=== PATIENT | female | born 1980 | race Caucasian/White ===

== ENCOUNTER 2023-12-08 19:49 | Emergency (ER) | payer BC, SELFPAY ==
[2023-12-08 19:54] VITALS: BP 138/98; PULSE 94; TEMP 36.6; O2SAT 99; BMI 22.6
--- NOTE | 2023-12-08 19:58 | PC.NURSE ---
Pt has swelling to right lower cheek area, denies known carry or broken tooth. Pt has no relief using ice or heat at home for swelling. Airway intact. Pt able to tolerate PO food and drink.
--- NOTE | 2023-12-08 20:03 | CT_ITS ---
The [address] [address] Patient Name: CHARLES REES MRN: [id number] date: 1980 Sex: F Assigned Patient Location: ER Current Patient Location: ED.MAIN Accession/Order Number: [id number] Exam Date: 12/08/2023 20:16 Report Date: 12/08/2023 21:01 At the request of: DAVID BLACK Procedure: CT facial bones w con EXAM: CT facial bones w con HISTORY: right facial abscess COMPARISON: None. TECHNIQUE: IV contrast enhanced CT imaging of the face. This CT exam was performed using one or more of the following dose reduction techniques: Automated exposure control, adjustment of the mA and/or KV according to patient size, or use of iterative reconstruction technique. Unless otherwise stated, incidental findings do not require dedicated follow-up imaging. FINDINGS: The bones of the face are intact without fracture or malalignment. The temporomandibular joints are appropriately located bilaterally. The paranasal sinuses and mastoid air cells are clear. There is prominent right premandibular soft tissue swelling. There is a rim enhancing subcutaneous abscess within the right perimandibular subcutaneous soft tissues that measures 10 x 9 mm. There is prominent surrounding inflammatory stranding. The globes are intact. The parotid and some mandibular glands are symmetric. CT/CT facial bones w con IMPRESSION: 1. 10 mm right perimandibular and cutaneous soft tissue abscess with surrounding inflammatory change. Electronically authenticated by: RHONA HDEZ Date: 12/08/2023 21:01
--- NOTE | 2023-12-08 20:05 | ED.GENADUL1 ---
Documented by User: ANALI Pedraza 12/08/23 20:53 HPI HPI - General Adult General Chief complaint: Skin/Abscess/Foreign Body Stated complaint: LUMP Time Seen by Provider: 12/08/23 19:51 Source: patient Mode of arrival: walk-in Limitations: no limitations History of Present Illness HPI narrative: Patient is a 43-year-old female who presents to the emergency department for a 5-day history of swelling to the right mandible. Patient states she had a hysterectomy 1 month ago and has been on Augmentin for the last several weeks although her pharmacy list shows that she was prescribed 10 days of Augmentin on 11/10/2023 so she should have finished this medication by now. She was seen yesterday at urgent care for the swelling and was referred to ENT. She states she has an appointment with ENT Thursday. She denies fevers, vomiting, drainage from the area. She has been applying warm compresses. Urgent care prescribed doxycycline yesterday although she states she has not filled that medication because she is still taking the Augmentin. No injury to the area. She denies dental pain Related Data Home Medications ?Medication ?Instructions ?Recorded ?Confirmed amoxicillin 875 mg-potassium 1 tab PO Q12H 12/08/23 12/08/23 clavulanate 125 mg tablet Previous Rx's ?Medication ?Instructions ?Recorded cephalexin 500 mg capsule 500 mg PO QID 10 days #40 caps 12/08/23 sulfamethoxazole 800 1 tab PO BID 10 days #20 tabs 12/08/23 mg-trimethoprim 160 mg tablet (Bactrim DS) Allergies Allergy/AdvReac Type Severity Reaction Status Date / Time acetaminophen [From Vicodin] Allergy itch Verified 12/08/23 20:00 hydrocodone [From Vicodin] Allergy itch Verified 12/08/23 20:00 nalbuphine [From Nubain] AdvReac Vomiting Verified 12/08/23 20:00 Opioid HPI Opioid Management Most Recent Opioid Data: No Data to Display Review of Systems ROS Constitutional Denies: fever or chills Ears, nose, mouth, and throat Denies: throat pain or nasal congestion Cardiovascular Denies: chest pain Respiratory Denies: shortness of breath or cough Gastrointestinal Denies: nausea or vomiting Musculoskeletal Denies: back pain Integumentary/Breast Denies: rash Neurological Denies: headache, numbness in extremities or weakness in extremities Hematologic/Lymphatic Denies: easy bruising or easy bleeding Exam Narrative Exam Narrative: Gen.: Awake, alert, in no distress Head: Normocephalic, atraumatic ENT: Moist mucous membranes, swollen indurated erythematous area to the right mandible/cheek; no redness or swelling under the tongue. Clear speech and airway open and patent, no dental caries noted. No visible abscess of the gums Respiratory: No respiratory distress Extremities: Moves extremities equally Psych: Normal mood and affect Neuro: No focal neuro deficit Skin: Warm, dry, intact Constitutional Vital Signs, click to edit/add: Last Vital Signs Temp 98 F 12/08/23 19:54 Pulse 94 H 12/08/23 19:54 Resp 16 12/08/23 19:54 BP 138/98 H 12/08/23 19:54 Pulse Ox 99 12/08/23 19:54 O2 Del Method Room Air 12/08/23 19:54 Course Vital Signs Vital signs: Vital Signs Temperature 98 F 12/08/23 19:54 Pulse Rate 94 H 12/08/23 19:54 Respiratory Rate 16 12/08/23 19:54 Blood Pressure 138/98 H 12/08/23 19:54 Pulse Oximetry 99 12/08/23 19:54 Oxygen Delivery Method Room Air 12/08/23 19:54 Temperature 98 F 12/08/23 19:54 Pulse Rate 94 H 12/08/23 19:54 Respiratory Rate 16 12/08/23 19:54 Blood Pressure 138/98 H 12/08/23 19:54 Pulse Oximetry 99 12/08/23 19:54 Oxygen Delivery Method Room Air 12/08/23 19:54 Medical Decision Making MDM Narrative Medical decision making narrative: 2051: Patient sent for CT of the soft tissue of the facial bones with IV contrast, CBC shows mild leukocytosis. Case turned over to attending physician at this time for disposition SHARED APC VISIT, PHYSICIAN ATTESTATION: [id number] I performed a substantive part of the MDM during the patient?s E/M visit. I personally evaluated and examined the patient. I personally made or approved the documented management plan and acknowledge its risk of complications. Medical Records Medical records reviewed: Yes I reviewed the patient's medical records Lab Data Lab results reviewed: Yes I reviewed the patient's lab results Labs: Lab Results 12/08/23 Range/Units 20:13 WBC 13.7 H (4.0-11.0) 10^3/uL RBC 4.65 (4.20-5.40) 10^6/uL Hgb 13.8 (12.0-16.0) g/dL Hct 40.7 (36.0-48.0) % MCV 87.5 (81.0-99.0) fL MCH 29.7 (26.7-34.0) pg MCHC 33.9 (29.9-35.2) g/dL RDW 13.9 (11.0-15.0) % Plt Count 261 (150-450) 10^3/uL MPV 10.8 (9.5-13.5) fL Seg Neuts % (Manual) 64.0 (43.0-75.0) Lymphocytes % (Manual) 7.0 L (20.5-60.0) % Atypical Lymphs % (Man) 19.0 % Monocytes % (Manual) 7.0 (1.7-12.0) % Eosinophils % (Manual) 3.0 (0.9-7.0) % Basophils % (Manual) 0.0 L (0.2-2.0) % Neutrophils # (Manual) 8.76 H (1.4-6.5) 10^3/uL Lymphocytes # (Manual) 0.95 L (1.20-3.80) 10^3/uL Abs Atypical Lymphs Man 2.60 Monocytes # (Manual) 0.95 H (0.30-0.80) 10^3/uL Eosinophils # (Manual) 0.41 (0.00-0.70) 10^3/uL Basophils # (Manual) 0.00 (0.00-0.10) 10^3/uL Toxic Vacuolation 2+ Imaging Data CT facial bones: Radiologist's impression: ITS Impressions Facial Bones CT 12/08/23 20:03 IMPRESSION: 1. 10 mm right perimandibular and cutaneous soft tissue abscess with surrounding inflammatory change. Electronically authenticated by: RHONA HDEZ Date: 12/08/2023 21:01 Discharge Plan Discharge Stand Alone Forms: Portal Instructions Chief Complaint: Skin/Abscess/Foreign Body Clinical Impression: Abscess of face Patient Disposition: Home, Self-Care Time of Disposition Decision: 21:14 Condition: Good Mode of Transportation: Private Vehicle Prescriptions / Home Meds: New sulfamethoxazole-trimethoprim [Bactrim DS] 800-160 mg tablet 1 tab PO BID 10 Days Qty: 20 0RF cephalexin 500 mg capsule 500 mg PO QID 10 Days Qty: 40 0RF No Action amoxicillin-pot clavulanate 875-125 mg tablet 1 tab PO Q12H Print Language: Martiniquais Instructions: Abscess (ED) Additional Instructions: See the ENT specialist at your appointment on Thursday, December 13. Use warm compresses for 15 minutes each time 4 times a day. Referrals: HAFSA WINSTON [Primary Care Provider] - 1 week Documented by User: Sebastien Singer MD 12/08/23 21:16 HPI HPI - General Adult General Chief complaint: Skin/Abscess/Foreign Body Stated complaint: LUMP Time Seen by Provider: 12/08/23 19:51 Related Data Home Medications ?Medication ?Instructions ?Recorded ?Confirmed amoxicillin 875 mg-potassium 1 tab PO Q12H 12/08/23 12/08/23 clavulanate 125 mg tablet Previous Rx's ?Medication ?Instructions ?Recorded cephalexin 500 mg capsule 500 mg PO QID 10 days #40 caps 12/08/23 sulfamethoxazole 800 1 tab PO BID 10 days #20 tabs 12/08/23 mg-trimethoprim 160 mg tablet (Bactrim DS) Allergies Allergy/AdvReac Type Severity Reaction Status Date / Time acetaminophen [From Vicodin] Allergy itch Verified 12/08/23 20:00 hydrocodone [From Vicodin] Allergy itch Verified 12/08/23 20:00 nalbuphine [From Nubain] AdvReac Vomiting Verified 12/08/23 20:00 Opioid HPI Opioid Management Most Recent Opioid Data: No Data to Display Exam Constitutional Vital Signs, click to edit/add: Last Vital Signs Temp 98 F 12/08/23 19:54 Pulse 94 H 12/08/23 19:54 Resp 16 12/08/23 19:54 BP 138/98 H 12/08/23 19:54 Pulse Ox 99 12/08/23 19:54 O2 Del Method Room Air 12/08/23 19:54 Course Vital Signs Vital signs: Vital Signs Temperature 98 F 12/08/23 19:54 Pulse Rate 94 H 12/08/23 19:54 Respiratory Rate 16 12/08/23 19:54 Blood Pressure 138/98 H 12/08/23 19:54 Pulse Oximetry 99 12/08/23 19:54 Oxygen Delivery Method Room Air 12/08/23 19:54 Temperature 98 F 12/08/23 19:54 Pulse Rate 94 H 12/08/23 19:54 Respiratory Rate 16 12/08/23 19:54 Blood Pressure 138/98 H 12/08/23 19:54 Pulse Oximetry 99 12/08/23 19:54 Oxygen Delivery Method Room Air 12/08/23 19:54 Medical Decision Making MDM Narrative Medical decision making narrative: 2051: Patient sent for CT of the soft tissue of the facial bones with IV contrast, CBC shows mild leukocytosis. Case turned over to attending physician at this time for disposition SHARED APC VISIT, PHYSICIAN ATTESTATION: [id number] I performed a substantive part of the MDM during the patient?s E/M visit. I personally evaluated and examined the patient. I personally made or approved the documented management plan and acknowledge its risk of complications. JK CT findings are discussed with the patient. She was given IV vancomycin. She has an appointment with ENT physician in 6 days that she will keep. She is going to be started on Bactrim and Keflex as well and was recommended warm compresses. Treatment diagnosis and follow-up were discussed with the patient. Differential Diagnosis Differential Diagnosis: Abscess, cellulitis Lab Data Lab results reviewed: Yes I reviewed the patient's lab results Labs: Lab Results 12/08/23 Range/Units 20:13 WBC 13.7 H (4.0-11.0) 10^3/uL RBC 4.65 (4.20-5.40) 10^6/uL Hgb 13.8 (12.0-16.0) g/dL Hct 40.7 (36.0-48.0) % MCV 87.5 (81.0-99.0) fL MCH 29.7 (26.7-34.0) pg MCHC 33.9 (29.9-35.2) g/dL RDW 13.9 (11.0-15.0) % Plt Count 261 (150-450) 10^3/uL MPV 10.8 (9.5-13.5) fL Seg Neuts % (Manual) 64.0 (43.0-75.0) Lymphocytes % (Manual) 7.0 L (20.5-60.0) % Atypical Lymphs % (Man) 19.0 % Monocytes % (Manual) 7.0 (1.7-12.0) % Eosinophils % (Manual) 3.0 (0.9-7.0) % Basophils % (Manual) 0.0 L (0.2-2.0) % Neutrophils # (Manual) 8.76 H (1.4-6.5) 10^3/uL Lymphocytes # (Manual) 0.95 L (1.20-3.80) 10^3/uL Abs Atypical Lymphs Man 2.60 Monocytes # (Manual) 0.95 H (0.30-0.80) 10^3/uL Eosinophils # (Manual) 0.41 (0.00-0.70) 10^3/uL Basophils # (Manual) 0.00 (0.00-0.10) 10^3/uL Toxic Vacuolation 2+ Imaging Data CT facial bones: Radiologist's impression: ITS Impressions Facial Bones CT 12/08/23 20:03
[2023-12-08 20:19] LABS: Hematocrit 40.7 % (36.0-48.0); Hemoglobin 13.8 g/dL (12.0-16.0); Mean Corpuscular HGB Conc 33.9 g/dL (29.9-35.2); Mean Corpuscular Hemoglobin 29.7 pg (26.7-34.0); Mean Corpuscular Volume 87.5 fL (81.0-99.0); Mean Platelet Volume 10.8 fL (9.5-13.5); Platelet Count 261 10^3/uL (150-450); Red Blood Count 4.65 10^6/uL (4.20-5.40); Red Cell Distribution Width 13.9 % (11.0-15.0); White Blood Count 13.7 10^3/uL (4.0-11.0)
[2023-12-08 20:36] LABS: Eosinophils Absolute Manual 0.41 10^3/uL (0.00-0.70); Lymphocytes Absolute Manual 0.95 10^3/uL (1.20-3.80); Monocytes Absolute Manual 0.95 10^3/uL (0.30-0.80); Segmented Neut Absolute Manual 8.76 10^3/uL (1.4-6.5); Toxic Vacuolation 2+
[2023-12-08 21:47] VITALS: BP 132/86; PULSE 82; O2SAT 97
== END 2023-12-08 21:47 | disposition home or self-care (01) ==
PROVIDERS: Physician Assistant; Emergency Provider Emergency Medicine; PCP Nurse Practitioner Family
DX: L02.01 Cutaneous abscess of face (principal); Z90.710 Acquired absence of both cervix and uterus
CPT/HCPCS: 36415; 70487; 85007; 85027; 99285; J3370; Q9967

== ENCOUNTER 2025-02-06 13:27 | Outpatient (OUT) | payer OTHER, SELFPAY ==
--- OUTSIDE RECORDS SUMMARY | 2022-11-27 05:12 | XMS_ITS | Continuity of Care Document ---
Author Organization [facility] Address [address] [place] [address] Phone Care Team Providers Care Customer Consulting Manager Name Role Phone August Gonzáles Unavailable Unavailable Allergies, Adverse Reactions, Alerts Substance Reaction Status Criticality hydrocodone Active No Information NALBUPHINE HCL Active No Informatio n Medications Medication Instructions Dosage Effective Dates (start - stop) Status Comments hydrochlorothiazide 12.5 mg tablet take 1 tablet by oral route every day 12.5 MG - Active ondansetron HCl 4 mg tablet take 1 tablet by oral route 4 times every day 4 MG - Active clonidine HCl 0.1 mg tablet take 1 tablet by oral route 2 times every day 0.1 MG - Active buspirone 10 mg tablet take 1 tablet by oral route 2 times every day 10 MG - Active Valtrex 500 mg tablet take 1 tablet by oral route every day 500 MG - Active Procedures Procedure Date OFFICE/OUTPATIENT VISIT, EST OFFICE/OUTPATIENT VISIT, EST URINALYSIS NONAUTO W/O SCOPE OFFICE/OUTPATIENT VISIT, EST URINALYSIS NONAUTO W/O SCOPE OFFICE/OUTPATIENT VISIT, EST URINE TEST OFFICE/OUTPATIENT VISIT, EST URINALYSIS NONAUTO W/O SCOPE Acute Detox Library Acquisitions Technician Acute Detox Library Acquisitions Technician Acute Detox Library Acquisitions Technician Acute Detox Library Acquisitions Technician Acute Detox Library Acquisitions Technician COVID-19 Antigen Test DRUG TEST PRSMV DIR OPT OBS URINE TEST Acute Detox Library Acquisitions Technician COVID-19 Antigen Test OFFICE/OUTPATIENT VISIT, EST ROUTINE VENIPUNCTURE OFFICE/OUTPATIENT VISIT, EST OFFICE/OUTPATIENT VISIT, EST OFFICE/OUTPATIENT VISIT, EST Office Visit/[facility] OFFICE/OUTPATIENT VISIT, EST OFFICE/OUTPATIENT VISIT, EST OFFICE/OUTPATIENT VISIT, EST OFFICE/OUTPATIENT VISIT, EST OFFICE/OUTPATIENT VISIT, EST OFFICE/OUTPATIENT VISIT, EST Alcohol and/or drug services- Acute Deto x Alcohol and/or drug services- Acute Deto x Alcohol and/or drug services- Acute Deto x DRUG TEST PRSMV DIR OPT OBS URINE TEST OFFICE/OUTPATIENT VISIT, EST STREP A ASSAY W/OPTIC CHIROPRACTIC MANIPULATION OFFICE/OUTPATIENT VISIT, EST CHIROPRACTIC MANIPULATION CHIROPRACTIC MANIPULATION OFFICE/OUTPATIENT VISIT, EST Panoramic Film Comp Oral Eval New/estab Patient 2018 Oral Hygiene Instruction PREV VISIT, EST, AGE 18-39 Detox Discharge Alcohol and/or drug services- Acute Deto x Alcohol and/or drug services- Acute Deto x DRUG TEST PRSMV DIR OPT OBS Advance Directives Directive Yes / No Effective Date File Name No Information Encounters Encounter Description Practice Location Reason(s) For Visit Diagnoses Date Provider Providers Copied on Encounter [facility], [address] [place] [address], [id number] , [place] tel: [phone] [facility] No Information 3 Evan Gomez. [address], [place], [id number] , [place]. tel: [phone] OFFICE/OUTPA TIENT VISIT, [facility], [address], [place], [id number] , [place] tel: [phone] [facility] f/u HTN, med refill (chief complaint)r elapse (chief complaint) Essential (primary) hypertensionOpiate abuse, episodicBody mass index [BMI] 23.0-23.9, adultTobacco Use Disorder, ModerateBipolar affective disorder, current episode mixed, current episode severity unspecified 2 Kastor RE[employer]OR [employer] Alyssa. [address] [place], [address], [place]. tel: [phone] OFFICE/OUTPA TIENT VISIT, [facility], [address] [place] [address], [id number] , [place] tel: [phone] [facility] F/U Flank pain (chief complaint) Heart palpitationsBody mass index [BMI] 22.0-22.9, adultEssential (primary) hypertensionAnxietyA cute UTIFollow-up examKidney stone on right sideFlank pain 2 Kastor [employer] Alyssa. [address] [place], [address], [place]. tel: [phone] OFFICE/OUTPA TIENT VISIT, [facility], [address] [place] [address], [id number] , [place] tel: [phone] [facility] UTI/Flank Pain (chief complaint) Body mass index [BMI] 22.0-22.9, adultChest pressureHeart palpitationsLeft flank painAsymptomatic microscopic hematuria 2 Kastor [employer] Alyssa. [address] [place] [address], [address], [place]. tel:[phone] OFFICE/OUTPA TIENT VISIT, [facility], [address] [place] [address], [id number] , [place] tel:+ [phone] [facility] F/U BP (chief complaint)F /U UTI (chief complaint)F /U Anxiety (chief complaint)U TI (chief complaint) Left flank painAcute UTIBody mass index [BMI] 22.0-22.9, adult Fabrice- 2 Jacob Clayton. [address] [place] [address], [id number] , [place]. tel:[phone] [facility], [address] [place] [address], [id number] , [place] tel: [phone] [facility] Constantine Acute UTI 2 Mame ARDON-Ami Shah. [address] [place] [address], [address], [place]. tel: [phone] OFFICE/OUTPA TIENT VISIT, [facility], [address] [place] [address], [id number] , [place] tel: [phone] [facility] BP check (chief complaint)f lank/pelvic pain (chief complaint)c oncerns about anxiety (chief complaint)n una issues (chief complaint) Neck painEssential (primary) hypertensionAnxietyB frantz mass index [BMI] 22.0-22.9, adultAsymptomatic microscopic hematuria 2 Mame ARDON-Ami Shah. [address] [place] [address], [address], [place]. tel: [phone] [facility], [address] [place] [address], [id number] , [place] tel:+ [phone] [facility]ox Opioid dependence with withdrawalMood disorderEssential (primary) hypertensionTobacco Use Disorder, Moderate 2 Thad Ozuna. [address] [place] [address], [address], [place]. tel: [phone] [facility], [address], [place], [id number] , [place] tel: [phone] [facility] Opioid dependence with withdrawalMood disorderEssential (primary) hypertensionTobacco Use Disorder, Moderate May-0 5-202 2 Thad Laith. [address] [place], [address], [place]. tel: [phone] [facility], [address], [place], [id number] , [place] tel: [phone] [facility] Opioid dependence with withdrawalMood disorderEssential (primary) hypertensionTobacco Use Disorder, Moderate May-0 4-202 2 Thad Laith. [address] [place], [address], [place]. tel: [phone] [facility], [address] [place] [address], [id number] , [place] tel: [phone] [facility] Opioid dependence with withdrawalMood disorderEssential (primary) hypertensionTobacco Use Disorder, Moderate May-0 3-202 2 Thad Laith. [address] [place], [address], [place]. tel: [phone] [facility], [address], [place], [id number] , [place] tel: [phone] [facility] substance abuse (chief complaint) Opioid dependence with withdrawalMood disorderEssential (primary) hypertensionTobacco Use Disorder, Moderate May-0 2-202 2 Thad Laith. [address] [place], [address], [place]. tel: [phone] [facility], [address], [place], [id number] , [place] tel: [phone] [facility] Opioid dependence with withdrawalMood disorderEssential (primary) hypertensionTobacco Use Disorder, Moderate May-0 2-202 2 Thad Laith. [address] [place], [address], [place]. tel: [phone] [facility], [address], [place], [id number] , [place] tel: [phone] [facility] Opioid dependence with withdrawalEncounter For Screening For Covid-19Encounter for test, result negative 2 Thad Ozuna. [address] [place] [address], [address], [place]. tel: [phone] OFFICE/OUTPA TIENT VISIT, [facility], [address] [place] [address], [id number] , [place] tel: [phone] [facility] BP Check & review labs (chief complaint) Body mass index [BMI] 23.0-23.9, adultDyslipidemia with elevated low density lipoprotein (LDL) cholesterol and abnormally low high density lipoprotein cholesterolEssential (primary) hypertensionMigraine without status migrainosus, not intractable, unspecified migraine type 1 [employer]aco Sierra. [address] [place] [address], [id number] , [place]. tel: [phone] [facility], [address] [place] [address], [id number] , [place] tel: [phone] [facility] labs (chief complaint) Fatigue, unspecified type 1 [employer]. [address] [place] [address], [id number] , [place]. tel: [phone] OFFICE/OUTPA TIENT VISIT, [facility], [address] [place] [address], [id number] , [place] tel: [phone] [facility] Med Refill (chief complaint) Body mass index [BMI] 23.0-23.9, adultHead congestionEssential (primary) hypertensionDaily headacheAnnual physical examDizzinessChronic fatigueArthralgia of both handsPain in joints of left handBilateral hand swelling 1 [employer]. [address] [place] [address], [id number] , [place]. tel: [phone] OFFICE/OUTPA TIENT VISIT, [facility], [address] [place] [address], [id number] , [place] tel: [phone] [facility] BP/med refill (chief complaint) Elevated BP without diagnosis of hypertensionGenital herpes simplex, unspecified siteMigraine without status migrainosus, not intractable, unspecified migraine type 0 Gil Santos. [address], [place], [id number] , [place]. tel: [phone] OFFICE/OUTPA TIENT VISIT, [facility], [address], [place], [id number] , [place] tel: [phone] [facility] f/u meds and bp (chief complaint) Essential (primary) hypertensionAnxiety 0 [employer]. [address] [place] [address], [id number] , [place]. tel: [phone] OFFICE/OUTPA TIENT VISIT, [facility], [address] [place] [address], [id number] , [place] tel: [phone] [facility] f/u BP (chief complaint) Migraine without status migrainosus, not intractable, unspecified migraine typeEssential (primary) hypertensionRinging in right ear 0 [employer]. [address] [place] [address], [id number] , [place]. tel: [phone] OFFICE/OUTPA TIENT VISIT, [facility], [address] [place] [address], [id number] , [place] tel: [phone] [facility] ER follow up (chief complaint) Body mass index (BMI) 21.0-21.9, adultEssential (primary) hypertensionMigraine without status migrainosus, not intractable, unspecified migraine type 0 [employer]. [address] [place] [address], [id number] , [place]. tel: [phone] OFFICE/OUTPA TIENT VISIT, [facility], [address] [place] [address], [id number] , [place] tel: [phone] [facility] swollen hands (chief complaint) Body mass index (BMI) 21.0-21.9, adultEdema, unspecified type 9 [employer]. [address], [place], [id number] , [place]. tel: [phone] [facility], [address] [place] [address], [id number] , [place] tel: [phone] [facility] Diarrhea, unspecified typeEnlarged uterus 9 [employer]. [address] [place] [address], [id number] , [place]. tel: [phone] OFFICE/OUTPA TIENT VISIT, [facility], [address] [place] [address], [id number] , [place] tel: [phone] [facility] diarrhea (chief complaint)o ther (chief complaint) Diarrhea, unspecified type 9 [employer]. [address] [place] [address], [id number] , [place]. tel: [phone] OFFICE/OUTPA TIENT VISIT, [facility], [address] [place] [address], [id number] , [place] tel: [phone] [facility] armpit cysts (chief complaint) Body mass index (BMI) 21.0-21.9, adultAbscess 9 [employer]. [address] [place] [address], [id number] , [place]. tel: [phone] OFFICE/OUTPA TIENT VISIT, [facility], [address] [place] [address], [id number] , [place] tel: [phone] [facility] medication f/u (chief complaint) Body mass index (BMI) 20.0-20.9, adultCocaine dependence with withdrawalOpioid dependence, uncomplicatedBipolar affective disorder, current episode mixed, current episode severity unspecifiedNeck painFatigue, unspecified type 9 [employer]. [address], [place], [id number] , [place]. tel: [phone] [facility], [address], [place], [id number] , [place] tel: [phone] [facility] Opioid dependence with withdrawal 0 9 Pavlock DO Max. [address], [place], [id number] , [place]. tel: [phone] [facility], [address], [place], [id number] , [place] tel: [phone] [facility] fentanyl dependence (chief complaint) Opioid dependence with withdrawal Feb-0 9 Wan Howell. [address], [place], [id number] , [place]. tel: [phone] [facility], [address], [place], [id number] , [place] tel: [phone] [facility] Opioid dependence with withdrawal 0 9 Pavlock DO Max. [address], [place], [id number] , [place]. tel: [phone] [facility], [address], [place], [id number] , [place] tel: [phone] [facility] Opioid dependence with withdrawalEncounter for test, result negative 3 9 [facility]. [address], [place], [id number] , [place]. tel: [phone] OFFICE/OUTPA TIENT VISIT, EST [facility], [address], [place], [id number] , [place] tel: [phone] [facility] problem visit (chief complaint) Body mass index (BMI) 21.0-21.9, adultUpper respiratory tract infection, unspecified typeSore throat 9 [employer] Sierra. [address], [place], [id number] , [place]. tel: [phone] [facility], [address], [place], [id number] , [place] tel: [phone] [facility] thoracic spine (chief complaint)t horacic spine (chief complaint) Segmental and somatic dysfunction of thoracic regionPain in thoracic spineSegmental and somatic dysfunction of cervical region 9 Wan Howell. [address], [place], [id number] , [place]. tel: [phone] OFFICE/OUTPA TIENT VISIT, EST [facility], [address], [place], [id number] , [place] tel: [phone] [facility] possible hernia (chief complaint) Body mass index (BMI) 21.0-21.9, adultLeft inguinal hernia 9 [employer] Sierra. [address] [place] [address], [id number] , [place]. tel: [phone] [facility], [address], [place], [id number] , [place] tel: [phone] [facility] thoracic spine (chief complaint)t horacic spine (chief complaint) Segmental and somatic dysfunction of thoracic regionPain in thoracic spineSegmental and somatic dysfunction of cervical region 9 Wan Howell. [address] [place] [address], [id number] , [place]. tel: [phone] [facility], [address] [place] [address], [id number] , [place] tel: [phone] [facility] thoracic spine (chief complaint)t horacic spine (chief complaint) Segmental and somatic dysfunction of thoracic regionPain in thoracic spineSegmental and somatic dysfunction of cervical region 9 Wan Howell. [address] [place] [address], [id number] , [place]. tel: [phone] [facility], [address] [place] [address], [id number] , [place] tel: [phone] [facility] thoracic spine (chief complaint)t horacic spine (chief complaint) Segmental and somatic dysfunction of thoracic regionPain in thoracic spineSegmental and somatic dysfunction of cervical region 9 Wan Howell. [address], [place], [id number] , [place]. tel: [phone] OFFICE/OUTPA TIENT VISIT, EST [facility], [address], [place], [id number] , [place] tel: [phone] [facility] med (chief complaint)e stablish care (chief complaint) Encounter for general adult medical exam w/ abnormal findingBody mass index (BMI) 21.0-21.9, adultGenital herpes simplex, unspecified site 9 [employer]. [address] [place] [address], [id number] , [place]. tel: [phone] [facility], [address] [place] [address], [id number] , [place] tel: [phone] [facility] thoracic spine (chief complaint)t horacic spine (chief complaint) Segmental and somatic dysfunction of thoracic regionPain in thoracic spineSegmental and somatic dysfunction of cervical region 9 Wan Howell. [address] [place] [address], [id number] , [place]. tel: [phone] [facility], [address] [place] [address], [id number] , [place] tel: [phone] [facility] hceo (chief complaint)d entangely soto (chief complaint) Encounter for screening for dental disorder 9 Priyanka Edward. [address] [place] [address], [id number] , [place]. 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 [address], [place], [id number] , [place]. tel: [phone] [facility], [address], [place], [id number] , [place] tel: [phone] [facility] Cocaine dependence with withdrawal Feb- 1-201 8 Evan Gomez. [address], [place], [id number] , [place]. tel: [phone] [facility], [address] [place] [address], [id number] , [place] tel: [phone] [facility] cocaine abuse (chief complaint) Cocaine dependence with withdrawal Feb-1 0-201 8 [employer]. [address], [place], [id number] , [place]. tel: [phone] [facility], [address], [place], [id number] , [place] tel: [phone] [facility] Cocaine dependence with withdrawal Feb-1 0-201 8 Evan Gomez. [address], [place], [id number] , [place]. tel: [phone] [facility], [address], [place], [id number] , [place] tel: [phone] [facility] Cocaine dependence with withdrawal Feb-0 9-201 8 Evan Gomez. [address], [place], [id number] , [place]. tel: [phone] Family History Family Member Type Diagnosis Age At Onset Sister Problem (finding) alcoholism Father Problem (finding) Diabetes mellitus Son Problem (finding) attention defi cit hyperactivity disorder Brother Problem (finding) alcoholism Mother Problem (finding) hypertension Mother Problem (finding) Alive and well Brother Problem (finding) Alive and well Mother Problem (finding) Cardiovascular disease Brother Problem (finding) Eczema Paternal grandmother Problem (finding) alzheimer's dis ease Brother Problem (finding) stroke Mother Problem (finding) atrial fibrillation Father Problem (finding) stroke Immunizations Vaccine Date Status Comments Hep A (adult) refused Source: New Im munization Record Payers Payer name Insurance type Covered libertarian ID Daniel canela(s) Medicaid [facility] [id number] Medicaid [facility] [id number] Social History Type Description Quantity Date Captured Comments Alcohol Use Details Unknown Caffeine Use Details Unknown Tobacco Use Status No Information Smoking Status No Information Sex Female Sexual Orientation Straight or heterosexual Feb Gender Identity Female Chief Complaint And Reason For Visit No Information Reason For Referral Reason For Referral No Information Plan Of Treatment Date Type Action Status Goal PRAPARE ASSESSMENT. Due on due Goal Influenza vaccine. Due on due Goal RLP. Due on due Goal Tdap. Due on due Goal Lipid panel. Due on due Goal Tdap Vaccine. Due on 2022 due Goal Depression scree kelvin. Due on due Goal Hep A. Due on du e Goal Urinalysis due Goal Diabetes screening. Due on due Goal Influenza vaccine. Due on due Goal Lipid panel. Due on due Goal Tdap. Due on due Goal RLP. Due on due Goal Depression scree kelvin. Due on due Goal PRAPARE ASSESSMENT. Due on due Goal Diabetes screening. Due on A due Goal Urinalysis due Goal Urinalysis due Goal Diabetes screening. Due on due Goal Depression scree kelvin. Due on due Goal Influenza vaccine. Due on due Goal RLP. Due on due Goal Lipid panel. Due on due Goal Tdap. Due on due Goal Lifestyle education regardin g diet completed Goal Diabetes screening. Due on due Goal Urinalysis due Goal ECG. Due on due Goal Tdap. Due on due Goal Lipid panel. Due on due Goal RLP. Due on due Goal Depression scree kelvin. Due on due Goal Influenza vaccine. Due on due Goal Dietary manageme nt education, guidance, and counseling completed Goal Tobacco cessation counseling completed Goal Lipid panel. Due on due Goal RLP. Due on due Goal Depression scree kelvin. Due on due Goal ECG. Due on due Goal Urinalysis due Goal Diabetes screening. Due on due Goal Influenza vaccine. Due on due Goal Tdap. Due on due Goal Lifestyle education regardin g diet completed Goal Tdap. Due on due Goal Lipid panel. Due on due Goal Influenza vaccine. Due on due Goal RLP. Due on due Goal Depression scree kelvin. Due on due Goal Lipid panel. Due on due Goal RLP. Due on due Goal Depression scree kelvin. Due on due Goal Influenza vaccine. Due on due Goal Tdap. Due on due Goal ECG. Due on due Goal Urinalysis due Goal Diabetes screening. Due on due Goal ECG. Due on due Goal Urinalysis due Goal Diabetes screening. Due on due Goal Weight-reducing diet educati on completed Goal Tobacco cessation counseling completed Goal Diabetes screening. Due on due Goal ECG. Due on due Goal Urinalysis. Due on due Goal ECG. Due on due Goal Diabetes screening. Due on due Goal Urinalysis. Due on due Goal Diabetes screening. Due on due Goal ECG. Due on due Goal Urinalysis. Due on due Goal Urinalysis. Due on due Goal ECG. Due on due Goal Diabetes screening. Due on due Goal ECG. Due on due Goal Diabetes screening. Due on due Goal Urinalysis. Due on due Goal Urinalysis. Due on due Goal ECG. Due on due Goal Diabetes screening. Due on due Goal ECG. Due on due Goal Urinalysis. Due on due Goal Diabetes screening. Due on due Goal ECG. Due on due Goal Diabetes screening. Due on due Goal Urinalysis. Due on due Goal Dietary manageme nt education, guidance, and counseling completed Goal Tobacco cessation counseling completed Goal Diabetes screening. Due on due Goal Urinalysis. Due on due Goal ECG. Due on due Goal ECG. Due on due Goal Diabetes screening. Due on due Goal Urinalysis. Due on due Goal Dietary manageme nt education, guidance, and counseling completed Goal ECG. Due on due Goal Diabetes screening. Due on due Goal Urinalysis. Due on due Goal Tobacco cessation counseling completed Goal ECG. Due on due Goal Diabetes screening. Due on due Goal Urinalysis. Due on due Goal Tobacco cessation counseling completed Goal ECG. Due on due Goal Diabetes screening. Due on due Goal Urinalysis. Due on due Goal Tobacco cessation counseling completed Goal ECG. Due on due Goal Diabetes screening. Due on due Goal Urinalysis. Due on due Goal Dietary manageme nt education, guidance, and counseling completed Goal Tobacco cessation counseling completed Goal Dietary manageme nt education, guidance, and counseling completed Goal Tobacco cessation counseling completed Goal Dietary manageme nt education, guidance, and counseling completed Goal Tobacco cessation counseling completed Goal Dietary manageme nt education, guidance, and counseling completed Goal Tobacco cessation counseling completed Goal Dietary manageme nt education, guidance, and counseling completed Goal Dietary manageme nt education, guidance, and counseling completed Goal Tobacco cessation counseling completed Goal Dietary manageme nt education, guidance, and counseling completed Goal Tobacco cessation counseling completed Goal Tobacco cessation counseling completed Referral Ordered: Referrals: Psychiatry. Evaluate and treat ordered Referral Ordered: ELECTROCARDIOGRAM, COMPLETE ordered Referral Ordered: Referrals: Urology. Evaluate and treat ordered Referral Ordered: X-RAY EXAM ABDOMEN 1 VIEW ordered Referral Ordered: CT Neck Spine W/O Dye ordered Referral Ordered: Referrals: Neurology. Evaluate and treat ordered Referral Ordered: Referrals: Gastroenterology. Evaluate and treat ordered Referral Ordered: US EXAM, PELVIC, COMPLETE Bilateral Appointment date/timeframe: 04/20/2019 ordered Referral Ordered: Surgery (related to Left inguinal hernia) ordered Referral Ordered: Referrals: Surgery. Evaluate and treat ordered Future Order: Lab Order Lipid Pa zach With LDL/HDL Ratio ([id number]), Ordered on: Ordered Future Order: Lab Order Stool Cu lture ([id number]), Ordered on: Ordered Future Order: Lab Order Occult B lood, Fecal, [place] ([id number]), Ordered on: Ordered Future Order: Lab Order Ova + Pa rasite Exam ([id number]), Ordered on: Ordered History Of Present Illness Encounter Date Complaint History Of Prese nt Illness f/u HTN, med refill Pt here toda y for HTN f/u and med refills. Needs refill on BP med no issues I have reviewed all above information and agree. Did see urologist for kidney stone. Saw Dr. Jenkins with [facility]. Still has small stone present and will monitor q3-6 months and F/U prn there. No urinary issues. Did not complete EKG ordered that we discussed last visit. Had ringing of the ear 3 weeks ago and that has resolved. Dizzy on and off. No CP, SOB, palpitations or neuro changes. Neville PETIT relapse Has bipolar depr ession. Was depressed a few weeks ago. Daughter tried to commit suicide. Relapsed with heroin 4 days ago. Using small amount daily. Snorting it. Last use was 16 months prior to that. Would like clonidine and something for zofran. Denies SI/HI/RT/H. Has Narcan at home. Has been on Suboxone in the past. Wants something to help with withdrawal symptoms. Neville PETIT F/U Flank pain Left flank pain has resolved. Says she has not noticed any blood in her urine.Provided urine sample.//Aki RN I have reviewed all above information and agree. Reports went to ED as instructed last visit. Was told had a kidney stone right ureter that may pass on its own. Was referred to urology and cardiology, but hasn't heard from cardiology yet . Only findings during ED visit was kidney stone, which was presumed on prior KUB image. Denies UTI symptoms. Still has leftover keflex ATB. Stopped taking it when started feeling better. Denies fever/chills. Denies n/v. Denies abdominal pain. No flank pain or back pain. Denies heart palpitations in office. Has a hx of A. fib in her family and wants cardiology referral. Denies CP, SOB and palpitations. Neville PETIT UTI/Flank Pain Pt here today to f/u UTI/flank pain. Pt states she still has the flank pain. Pt states she is still having chest pain/heaviness in chest. Its in sternum/heart area. Pt states its happening a couple times a day. Pt denies shortness of breath with this. Has palpitations with this. Denies back pain getting worse when this happens. Pt states not sure if its anxiety. No other issues or concernsTGrodi FINANCIAL SERVICES INTERN I have reviewed all above information and agree. Here for review KUB results and recheck UA. Pt reports symptoms are about the same. No SOB. Finished ATB. Still has left kidney pain deep inside . Denies pain with palpation. No fevers. No n/v. Denies belly pain. Reports having intermittent chest pain with palpitations. Denies currently. Mom and aunts all have A. fib. Grandfather had a lot of kidney stones pt reports. Neville PETIT F/U BP BP today 128/86. Patient also brought in BP Log.Quit Smoking 10/15/2021chedule back with Alyssa//Aki CHILEL F/U UTI Pain in left fla nk pain still from UTI. Says pain radiates around to front under rib.//Aki CHILEL F/U Anxiety Patient scored 0 on Depression questionnaire. Scored 3 on Anxiety questionnaire which is 'minimal anxiety'.//Aki CHILEL UTI Onset: 2 Weeks. The severity of the problem is moderate. The problem has worsened. The symptoms are constant. Presenting/Initial symptoms include flank pain. Symptoms are not associated with diabetes. Denies aggravating factors. Denies relieving factors. Associated symptoms include flank pain. Pertinent negatives include abdominal pain, dribbling, dysuria, fatigue, fever, frequency, hematuria, hesitancy, nausea, pelvic pain, pressure, urgency, vaginal discharge or vomiting. Additional information: Ayaanstephan MARISABEL. neck issues States left side of her spine has a lump on it. Has hx of cervical CA three times according to patient. States the lump on neck gives her lots of pain and she thinks may be contributing to headaches. Nurse unable to palpate lump but patient states it is on the left side of her cervical spine. --Neda Jara RN I have reviewed all above information and agree. Neville PETIT BP check Presents with melendez yulyon that her BP is high. States she gets really bad headaches and dizziness. States she had blood pressure problems before and tried a few different medications and they made her feel sick so she stopped taking them. Patient does not check blood pressure at home/[facility]. States she has a wrist cuff and an arm cuff at home. -Neda Jara RN flank/pelvic pain States that 2 days ago she started having left flank pain that radiates to the front of her body. States pain is constant. States had vasectomy so she does not think she could be . Patient is concerned about kidney problems. -Neda Jara RN concerns about anxiety States denisse mijares has panic attacks where it feels like she is having heart attacks. States she has anxiety all the time but has panic attacks a couple times a week. States she was on buspar before and it seemed to help. Does counseling with [facility]. LAWRENCE 12-K Estefani CHILEL substance abuse The symptoms are reported as being moderate. The symptoms occur constantly. She states the symptoms are acute and are of new onset. AoD Assessment reviewed. Pt is a 40 year old female with hx of OUD who reports to detox from fentanyl/heroin. She reports snorting and IV injecting about 0.5 grams daily for the past 3.5 weeks. Last use was 08/31/21. She denies any other drug use. Denies any overdose hx. She reports mental health history including anxiety, bipolar, and depression. Denies any SI/HI. BP Check & review labs Pt here t dov for BP check and review labsNo other issues or concernsTGrodi LPNNoted above. Pt reports only 4 headaches since last visit, no longer getting daily headaches. She is a smoker.Reviewed lab results. She mentions when she was getting Hep C treatment from Dr. Antoine in [place] he completed a EGD and commented to her about seeing something by her heart that she should see a vibrating screen operator about . Nothing further was done. Will request those records from Dr. Hall office. Pt reports she is feeling better today than she did at last visit. No other concerns today. Alma Rosa labs Labs obtained melendez ccessfully from right AC and tolerated well by pt. RANJANA Song Med Refill Pt here today to discuss migraines. Pt states she had one for about a month but it stopped 2 days ago. Pt states that she quit taking the Topamax because she did not feel it was helping. Pt states she has had some episodes where she gets hot sweaty and feels like she is going to pass out. Pt states she has to have some caffeine to make her feel better. Pt states this has happened in the last month. Pt states diabetes does run in her familyNo other issues or concernsTGrodi LPNNoted above. Pt does have history of migraines presents today with complaints of daily headaches for about a month. We did discuss that she was on BP medications in the past and her BP is elevated today, that could contribute to headaches. Pt also report hand swelling and joint pain. She also mentions a sore throat for last few days. Denies any sinus pressure of congestion. Alma Rosa BP/med refill Pt here today fo r med refill. Pt c/o pelvic pain. Denies fevers, discharge. States she did have an order and an itch a week ago but has since resolved with antibiotics. Pt was scheduled with Karen Thomas. Pt states she needs her Topamax, Valtrex, and Ibuprofen refilled today. No other complaints. Danica Song with above. Pt states she does not get headaches anymore. Takes Valtrex daily to prevent outbreaks, cannot recall last time she had one. BP's at home are reported to be 120-130s/ 70-80s. Not currently taking BP meds. Denies CP, SOB, edema. King Cordero TRANSACTION ADVISORY SERVICES MANAGER f/u meds and bp Pt here for f/u BP and medication refill. Pt states she has not taken her BP medication in a week d/t feeling dizzy after taking it, states it almost makes her nauseated. Pt denies any other issues or concerns. Laney, Noted above. Patient reports she stopped taking her Latuda a few months ago because she did not like how it made her feel. She has not seen [facility] counseling in a couple months. She mentions feeling more anxious, I'm not sure if it is my ptsd but I started smoking pot and that is helping . She is looking to get her medical marijuana card. Her complaints are vague related to problems with taking her BP medication. She states she eats regularly. She has BP cuff at home. Alma Rosa f/u BP Pt here today fo r f/u on her BP and migraines. Pt states that her migraines have improved since being on her BP meds. Denies need for refills today. NohemiRNNoted above. Patient reports she did not tolerate lisinopril/hctz, see telephone call 10/25/[address] Mcgee. He changed medication to amlodipine 5mg, she is tolerating that well. She still reports ringing in right ear" since bad headache beginning of October . She denies any ongoing vision changes, no balance/coordination problems.She reports she finished her Hep C treatment 2 weeks ago, following with GI. No other concerns today. Bradly ER follow up Patient here for ER follow up. Patient went Thursday to [facility] for migraine. Patient was given an injection and it helped for a day. Patient said it slowly came back. Patient has headache again today. Patient has tried aleve and tylenol. It didn't help. No other issues at this time.Cole Carbone.Noted above. Patient reports headaches daily for last few months. She mentions foggy vision and head feels weird . She has been illicit drug free for 9 months on 11/03/2019. She is seeing GI and on treatment for Hepatitis C. She mentions headaches started after being on that medication for over a month. She sees [facility] counseling and is prescribed Buspirone through them. No other concerns today. Bradly swollen hands Pt here today fo r swelling in her hands and face. Pt noticed that for about a month her hands and face will be swollen before she goes to bed and when she wakes up in the morning. Pt states that in the morning she also notices that her hands are completely white and numb. No other complaints at this time. Samuel Foss, RNNoted above. Patient reports the swelling has been ongoing for about a month. Her rings on both hands are tighter than they have been. She denies any shortness of breath or edema elsewhere. Reports she has appt with GI in 06/2019. She mentions a cough that started this morning, no other symptoms. Bradly other Patient reports ongoing diarrhea for 3 weeks. Had one day that it hardened up a little, but now loose again . Denies any sick exposures. No fever, body aches. All pain is on left side. She states she went to [facility] last week and was told after diagnostic testing that her colon was inflamed . ER records not available for review. Pt signed release of records. She is hesitant to eat. Denies nausea, +flatulence, +bloating. Does mention she has increase of headaches but has not been taking her Topamax daily. She has appt with [facility] for intake to see psychiatrist on 04/04 or 04/05. She goes to [facility] for counseling. She reports no illicit drug use. She reads the Bible for strength. Discussed mental health playing a part in current symptoms. She is still taking fluids fine, admits to being hesitant to eat much- but weight is steady. She drinks a pot of coffee daily but does not like spicy foods . chau diarrhea Onset: 3 weeks a go. The describes it as watery and brown. It occurs daily. The problem is without change. Associated symptoms include abdominal pain, bloating, cramping (abdominal) and flatulence. Pertinent negatives include blood in stool, fever, joint pain, nausea, vomiting and weight loss. armpit cysts Pt here to have cysts in both armpits evaluated. Pt states that the cysts in her L armpit are bothering her right now. Pt is having pain but denies any discharge. Pt denies fevers. Pt has had these cysts for a little over a year. Pt stopped taking her sertraline stating that it did not work. Pt has not taken her topiramate in about a week. No other complaints at this time. Samuel Foss, RNNoted above. Patient has stopped taking her sertraline. She feels like she does not need any medications. She reports getting these cysts every couple months . Has had one lanced in the right axilla area. Has history of MRSA. Alma Rosa medication f/u Pt here for Lashon trol application and discuss medications. Pt went to detox at [facility]. Pt was released about a week ago. Pt received a Vivitrol injection. Last Use: about 2 weeks, DOC: cocaine. Pt states that she did use opiates in 2016. Pt states she relapsed before detox and thought she was using cocaine but it contained opiates. Pt is set up for counseling this week at [facility]. Pt complaint of back pain that begins in her neck and stops mid back. Pt states that it comes and goes. Pt complaint of sharp pain in her mid chest with some periods of dull aching. Pt also states her L arm goes numb with a shooting pain down her forearm. Pt states that symptoms started after her first injection. No other complaints at this time. Samuel Foss, RNNoted above. Patient thinks she got her Vivitrol last week, maybe thursday (02/15) , requesting records. DOC cocaine, relapsed on opiates. Started using drugs at age 28. She reports a diagnosis of bipolar- was on latuda, lamictal and trazodone in the past. Was on seroquel- did not like how that made her feel. Was started on sertraline and hydroxyzine (she thinks that is the name) for her anxiety and bipolar and topiramate for her headaches. She has appt tomorrow at [facility] for evaluation. Was told she would get partial hospitalization treatment . She did not know what exactly that meant. Her current symptoms she reports started when she got home about a week ago . She reports left neck pain, goes down her left arm to chest area. Reports left had weakness, dry mouth, mind foggy. She reports fatigue and being cold . Alma Rosa fentanyl dependence 38 year old female checked in to detox yesterday and reports last using fentanyl yesterday. She has been using $20/day for the last several days after 6 months clean from cocaine. She last attended detox Feb 2018surgical hx- herniaallergies- hydrocodonemeds- nonetobacco- 1 ppdalcohol- noneplans upon completing detox- not sure problem visit Pt here with sor e throat and nausea. Pt has had sore throat for about 3-4 days with nausea starting today. Pt did vomit 1x yesterday. Pt did have a headache and took Aleve with relief. Pt states that she does have a swollen lymph node in right armpit. Pt does have some congestion and nonproductive cough. No other complaints at this time. Samuel Foss, RNNoted above. Patient reports feeling nauseous this morning, feeling better now. She states she had swollen lymph node in both armpits but took amoxicillin that she had left, 2 days worth and the lymph node in left armpit improved . Alma Rosa thoracic spine thoracic spine Pt reports regine ess in back from working. possible hernia Patient is here from [facility] because she believes she has an inguinal hernia. She says she has been dealing with it for about 4 months. It has gotten worse since she went back to work. She went to the hospital for it but never followed up with the ultrasound that was ordered. Cal, CMANoted above. Patient reports she was in the ER at [facility] earlier with year and was diagnosed with likely left inguinal hernia, she was supposed to f/u with a ultrasound and never did. 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 Alma Rosa thoracic spine thoracic spine Pt reports still being very sore from working with [email or web address]. 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 thoracic spine thoracic spine Pt reports luis daniel nued improvement. establish care Labs obtained fr om right anticub after one attempted. Patient tolerated it well. FSH on order is for Anette Carbone Lpn. med Patient is here because she is in need of Valtrex to control her outbreaks of Genital warts. Patient currently resides at the sober living home across the street. Patient is recovering from cocaine. She attends counseling with [facility]. Patient also needs her FSH drawn from [place]. Mccall, CMANoted above. She reports she will be in this area until 01/2019. She has been seeing a provider in [facility] for her Hep C+. Will order fasting labs today. Alma Rosa thoracic spine thoracic spine Pt reports recen t hx of mid back pain including rib pain on the left. Has responded well to chiro care in past. Currently in early stages of recover from cocaine dependence. cheo dental new estab dental car e annual exam Currently pregna nt: no. : 6. Parity: Term: 1. Pre-Term: 3. : 2. Livin. Patient is not contemplating . The patient states she uses Essure for control. Her menses is absent.Negative for Hormone replacement therapy. Menopausal symptoms negative for: insomnia, night sweats and vaginal dryness. Menopausal symptoms positive for: hot flashes. The patient does use tobacco. Tobacco cessation has been discussed. She does not drink alcohol. Additional information: Patient is here for annual exam. C/O hot flashes and has not had a menses. States she has not had a menses for 1 year, but has had issues with addiction and is just now starting to get healthy. Would like medication to regulate menses. cocaine abuse 37 y/o female pr esented to the detox center on 02/09/18. She reports she has never been in a detox center before, she has stopped by herself. Physical exam being performed. Medical hx- past dx of bipolar, New dx of hep B and CSurgical hx- cancer lesions removed from face, teeth pulled, lymph node removed in left groinAllergies- NubainMedications- all medications recently stolen . Reports she stopped taking her anxiety medication because she did not feel they were necessarySmoker- 1 ppd x27 yearsAlcohol- deniesIllicit drugs- cocaine, for last 3 days, was sober for 6 months prior. Started using marijuana and alcohol age 12. Cocaine and heroin age 26, 28. Plans when leaving detox center- Primary care and then home. Functional Status Date Functional Assessmen t No Information Instructions Date Instruction Additional Infor manan Giving encouragement to exercise Related to Body mass index [BMI] 22.0-22.9, adult Lifestyle education regarding di et Related to Body mass index [BMI] 22.0-22.9, adult To ER immediately. Y ou agree to go to [facility] and will drive yourself there. Related to Chest pressure Dietary management e ducation, guidance, and counseling Related to Body mass index [BMI] 22.0-22.9, adult Giving encouragement to exercise Related to Body mass index [BMI] 22.0-22.9, adult 1. Antibiotic as ord eredFINSIH LAST MACROBID TABLETSTART CEPHALEXIN TODAYTYLENOL OR IBUPROFEN FOR PAINPROBIOTIC RECOMMENDED2. Push fluids3. ER for vomiting, high fever, severe flank pain, worsening of symptoms4. OUT PATIENT KUB ORDERED5. UA WITH CULTURE PENDING6. Follow up: 2-3 DAYS Related to Left flank pain Giving encouragement to exercise Related to Body mass index [BMI] 22.0-22.9, adult Lifestyle education regarding di et Related to Body mass index [BMI] 22.0-22.9, adult Drink plenty of flui ds.May take tylenol/motrin prn. To ER for fever, severe back or flank pain or other worrisome symptoms.Will wait to Rx antibiotic until urine culture results. May not be UTI. Call office with any questions or concerns. Related to Asymptomatic microscopic hematuria Your BP is elevated in office today.Rx sent HCTZ diuretic. Take one pill daily as prescribed.You have a BP cuff at home. Take BP twice daily and keep a log. Log provided to you. Bring to next appt.Do not take BP medication if you feel dizzy or BP is < 120/70 before taking the pill. Return to office in 2 week to review BP log and recheck new medication. Related to Essential (primary) hypertension Take CT order provid ed to you to hospital to complete imaging. May take tylenol/motrin prn.Will contact you with results of CT scan.To ER for any dizziness, neck pain, stiff neck, fever, confusion, neurological changes or any other worrisome symptoms. Related to Neck pain Giving encouragement to exercise Related to Body mass index [BMI] 22.0-22.9, adult Weight-reducing diet education R elated to Body mass index [BMI] 22.0-22.9, adult Encourage PO fluids - Related to Opioid dependence with withdrawal Dietary management e ducation, guidance, and counseling Related to Body mass index [BMI] 23.0-23.9, adult Giving encouragement to exercise Related to Body mass index [BMI] 23.0-23.9, adult Giving encouragement to exercise Related to Body mass index [BMI] 23.0-23.9, adult Dietary management e ducation, guidance, and counseling Related to Body mass index [BMI] 23.0-23.9, adult Giving encouragement to exercise Related to Body mass index (BMI) 21.0-21.9, adult Dietary management e ducation, guidance, and counseling Related to Body mass index (BMI) 21.0-21.9, adult Giving encouragement to exercise Related to Body mass index (BMI) 21.0-21.9, adult Dietary management e ducation, guidance, and counseling Related to Body mass index (BMI) 21.0-21.9, adult Dietary management e ducation, guidance, and counseling Related to Body mass index (BMI) 21.0-21.9, adult Giving encouragement to exercise Related to Body mass index (BMI) 21.0-21.9, adult Giving encouragement to exercise Related to Body mass index (BMI) 20.0-20.9, adult Dietary management e ducation, guidance, and counseling Related to Body mass index (BMI) 20.0-20.9, adult Giving encouragement to exercise Related to Body mass index (BMI) 21.0-21.9, adult Dietary management e ducation, guidance, and counseling Related to Body mass index (BMI) 21.0-21.9, adult Giving encouragement to exercise Related to Body mass index (BMI) 21.0-21.9, adult Dietary management e ducation, guidance, and counseling Related to Body mass index (BMI) 21.0-21.9, adult Giving encouragement to exercise Related to Body mass index (BMI) 21.0-21.9, adult Dietary management e ducation, guidance, and counseling Related to Body mass index (BMI) 21.0-21.9, adult Discussed amenorrhea in detail. FSH ordered to rule out menopause. Rx for provera 10mg daily for 10 days . If not menopausal encouraged to continue Provera monthly. If menopausal recommend monthly until no menses for 3 months in a row. Patient states understanding. Related to Amenorrhea Cervical cultures se nt to lab. Patient to call in 1 week for results Related to Screen for STD (sexually transmitted disease) Encouraged monthly B SE. Recommend calcium 1000mg QD. Encouraged good dietary intake and exercise. Laboratory specimens sent to lab. Patient to call in 2 weeks if desires results. Related to Encntr for manager bridge exam (general) (routine) w/o abn findings Assessments Type Assessment Date No Information Patient Care Teams Name Effective Dates (start - stop) Status Members No Information
--- OUTSIDE RECORDS SUMMARY | 2025-02-06 13:32 | XMS_ITS | Clinical Summary ---
Author Organization [facility] Address [address] [place] [address] Phone Care Team Providers Care Final Coat Sprayer Name Role Phone GiovanyCiriloAimee Romelia PURCHASING/RECEIVING-HIDE EXAMINER Primary Care Provider Nikia Vera MD Unavailable [phone] Allergies Active Allergy Reactions Criticality Noted Date Comments Hydrocodone-Acetamino phen Nausea And Vomiting Medium 10/04/2015 Nalbuphine Nausea And Vomiting,Other,Nause a/vomiting Low 06/17/2014 vomiting Other Reaction(s): Vomiting, Vomiting vomiting immediately vomiting immediately Medications b complex vitamins capsule Take 1 capsule by mouth once daily. Active biotin 10,000 mcg capsule Take by mouth. Active amlodipine-valsar torrez (Exforge) 5-160 mg tabletIndications :Essential hypertension Take 1 tablet by mouth once daily. 90 tablet 2 4 Active nebivolol (Bystolic) 5 mg tabletIndications :Essential hypertension Take 1 tablet (5 mg) by mouth once daily. 90 tablet 2 4 Active Active Problems Problem Noted Date Diagnosed Date BMI 22.0-22.9, adult 01/28/2024 Current smoker 01/28/2024 Chest pain 01/28/2024 Essential hypertension 01/28/2024 Family History Medical History Relation Name Comments heart stents Brother Heart attack Father Atrial fibrillation Mother Hypertension Mother Relation Name Status Comments Brother Father Mother Social History Tobacco Use Types Packs/Day Years Used Date Smoking Tobacco: Every Day Cigarettes Smokeless Tobacco: Current Tobacco Cessation:Ready to Q uit: No; Counseling Given: Yes Comments:vape Alcohol Use Standard Drinks/Week Comments Not Currently 0 (1 standard drink = 0.6 oz pur e alcohol) Comments Unknown Sex and Gender Information Value Date Recorded Sex Assigned at Not on file Legal Sex Female 9:43 AM EST Gender Identity Not on file Sexual Orientation Not on file Last Filed Vital Signs Vital Sign Reading Time Taken Comments Blood Pressure 170/110 01/28/2024 10:53 AM EDT Pulse 90 01/28/2024 10:52 AM EDT Temperature - - Respiratory Rate - - Oxygen Saturation - - Inhaled Oxygen Concentration - - Weight 64.4 kg (142 lb) 01/28/2024 10:52 AM EDT Height 167.6 cm (5' 6 ) 01/28/2024 10:52 AM EDT Body Mass Index 22.92 01/28/2024 10:52 AM EDT Plan of Treatment Health Maintenance Due Date Last Done Comments Lipid Panel 1980 Yearly Adult Physical 1980 Hepatitis A Vaccines (1 of 2 - Risk 2-dose series) 11/05/1999 Pneumococcal Vaccine: Pediat rics and At-Risk Adult Patients (1 of 2 - PCV) 11/05/1999 Cervical Cancer Screening 2001 HPV/Cotest 2001 Pap Smear 2001 Hepatitis B Vaccines (2 of 3 - 19+ 3-dose series) 01/30/2004 01/02/2004 HPV Vaccines (1 - 3-dose sta ndard series) 11/05/2007 Mammogram 2020 DTaP/Tdap/Td Vaccines (2 - T d or Tdap) 09/08/2022 09/08/2012 COVID-19 Vaccine (2023-2 5 season) 2025 Influenza Vaccine (#1) 2025 Zoster Vaccines (1 of 2) 2030 MMR Vaccines Completed 07/11/1993 HIV Screening Completed 02/09/2019 HIB Vaccines Aged Out No longer eligi ble based on patient's age to complete this topic IPV Vaccines Aged Out No longer eligi ble based on patient's age to complete this topic Meningococcal Vaccine Aged Out No ben martina eligible based on patient's age to complete this topic Rotavirus Vaccines Aged Out No longer eligible based on patient's age to complete this topic Insurance [facility] Care Teams Final Coat Sprayer Relationship Specialty Start Date End Date Aimee Adair, STUART-HIDE EXAMINER [address] [facility] [place] [id number] PCP - General Family Medicine 01/28/24 Nikia Vera MD [address] [facility] [address], [facility] [address] [place] [address] Consulting Physician Cardiology 01/28/24
--- OUTSIDE RECORDS SUMMARY | 2025-02-06 13:32 | XMS_ITS | Clinical Summary ---
Author Organization [facility] Address [address] [place] [address] Care Team Providers Care Data Integration Analyst Name Role Phone GiovanyJaymeie DIRECTOR COMPENSATION Unavailable [phone] Abisai Wang DO Unavailable [phone] Allergies Active Allergy Reactions Criticality Noted Date Comments Hydrocodone 12/09/2023 Other Reaction(s): Vomiting Hydrocodone-Acetaminop hen Nausea And Vomiting Medium 10/04/2015 Nalbuphine Nausea And Vomiting Low 06/17/2014 Other Reaction(s): Vomiting, Vomiting vomiting immediately Medications cyclobenzaprine (Flexeril) 10 MG tablet Take 10 mg by mouth 3 (three) times a day as needed 11/03/2023 Active doxycycline (Vibramycin) 100 MG capsule Take 100 mg by mouth Daily 12/07/2023 Active ibuprofen 600 MG tablet Take 600 mg by mouth every 6 (six) hours 11/13/2023 Active metoprolol succinate XL (Toprol-XL) 25 MG 24 hr tablet Take 25 mg by mouth Daily 11/03/2023 Active cephalexin (Keflex) 500 MG capsule Take 500 mg by mouth in the morning and 500 mg at noon and 500 mg in the evening and 500 mg before bedtime. 12/09/2023 Active Active Problems Problem Noted Date Diagnosed Date Vaginal discharge 12/14/2023 Headache 12/14/2023 Facial abscess 12/14/2023 Bunion of great toe of right foot 12/09/2023 Current smoker 12/09/2023 Overview (12/09/2023): Added secondary to documentation in Social History. Essential hypertension 12/09/2023 History of MRSA infection 12/09/2023 Inguinal lymphadenopathy 12/09/2023 Overview (12/09/2023): Outside Source Comment: Comment on above: left Left inguinal hernia 12/09/2023 Left inguinal pain 12/09/2023 Mastodynia of right breast 12/09/2023 Migraine 12/09/2023 Ovarian cyst 12/09/2023 Ruptured sebaceous cyst 12/09/2023 Substance abuse 12/09/2023 Overview (12/09/2023): history of pain med abuse Chronic hepatitis C 12/09/2023 Endometriosis 12/09/2023 Squamous cell carcinoma of cervix 12/09/2023 Foreign body in bladder 12/10/2022 Asymptomatic microscopic hematuria 12/23/2021 Kidney stone 12/23/2021 Stress incontinence of urine 12/23/2021 Chest pain 10/28/2021 Cellulitis of right foot due to methicillin-resistant Staphylococcus aureus 02/17/2010 Overview (12/09/2023): Outside Source Comment: Comment on above: MRSA vagina 02/17/10 Family History Medical History Relation Name Comments HTN Father HTN Mother Hyperlipidemia Mother HTN Sister Relation Name Status Comments Father Mother Sister Social History Tobacco Use Types Packs/Day Years Used Date Smoking Tobacco: Every Day Cigarettes Tobacco Cessation:Ready to Q uit: Not Asked; Counseling Given: Not Answered Alcohol Use Standard Drinks/Week Comments Not Currently 0 (1 standard drink = 0.6 oz pur e alcohol) Comments Unknown Sex and Gender Information Value Date Recorded Sex Assigned at Not on file Legal Sex Female 7:14 PM EDT Gender Identity Not on file Sexual Orientation Not on file Last Filed Vital Signs Vital Sign Reading Time Taken Comments Blood Pressure 73/56 12/25/2023 10:24 AM EDT Pulse - - Temperature - - Respiratory Rate - - Oxygen Saturation - - Inhaled Oxygen Concentration - - Weight 63 kg (139 lb) 12/25/2023 10:24 AM EDT Height 167.6 cm (5' 6 ) 12/25/2023 10:24 AM EDT Body Mass Index 22.44 12/25/2023 10:24 AM EDT Plan of Treatment Not on file Insurance BCBS Care Teams Data Integration Analyst Relationship Specialty Start Date End Date Aimee Adair NP [address] [place] [address] Referring Physician 12/08/23 Abisai Wang DO [address] [facility] [address] [place] [address] Family Medicine 12/08/23
--- OUTSIDE RECORDS SUMMARY | 2025-02-06 13:32 | XMS_ITS | Patient Health Record ---
Author Organization [facility] Address [address] [place] [address] Care Team Providers Care Lead Enterprise Architect Name Role Phone Aimee Lerner Primary Care Provider [phone] Allergies Allergen (clinical drug ingredient) Drug/Non Drug Allergy documented on EMR Reaction Allergy Type Onset Date Status Nubain vomiting Drug Allergy Active hydrocodone Hydrocodone hives Drug Allergy Act karlos Reason For Referral No Information Medications Medication SIG (Take, Route, Frequency, Duration) Notes Start Date End Date Status Cetirizine HCl 10 MG 1 tablet Orally Onc e a day; Duration: 30 day(s) 11/10/2023 Active Collagen 1500/C 500-50-0.8 MG as directed Orally Not-Taki ng Metoprolol Succinate ER 25 MG 1 tablet Orally Once a day; Duration: 90 days 09/10/2023 Active Vitamin C Not-Taking Albuterol Sulfate HFA 108 (90 Base) MCG/ACT 1 puff as needed Inhalation every 4 hrs 10/16/2022 Not-Takin g Valtrex 500 MG 1 tablet Orally Once a day Not-Taking Magnesium Not-Taking Multivitamin Adults - as directed Orally Not-Taking Hutchinson DM 7.5-7.5 MG/5ML 10 ml Orally ev cristel 6-8 hours as needed 10/16/2022 Not-Taking Social History Tobacco Use: Social History Observation Description Date Details (start date - stop date) Current Smoker NA - NA Tobacco Screen: Question Answer Notes Are you a: current smoker How often do you smoke cigarettes? every day How many cigarettes a day do you smoke? 11-20 Alcohol Screening: Question Answer Notes Did you have a drink containing alcohol in the p ast year? No Points 0 Interpretation Negative AUDIT-C (Standard) Question Answer Notes Did you have a drink containing alcohol in the p ast year? No Points 0 Interpretation Negative Tobacco Control (Standard) Question Answer Notes Tobacco use: Current smoker How often do you smoke cigarettes? Every day How many cigarettes a day do you smoke? -20 Problems Problem Type SNOMED Code ICD Code Onset Dates Problem Status W/U Status Risk Notes Problem Tobacco user (822486798) Nicotine dependence, unspecified, uncomplicated (F17.200) Active confirmed Problem Migraine (59158031) Migraine without status migrainosus, not intractable, unspecified migraine type (G43.909) Active confirmed Problem Primary hypertension (66966597) Primary hypertension (I10) Active confirmed Plan Of Treatment No Information Insurance Providers Payer Name Payer Address Payer Phone Subscriber Number Group Number Insured Name Patient Relationship to Insured Coverage Start Date Coverage End Date [employer] [place] Medicaid [address] [place] [address] [phone] [id number] CABRERA BRANDICHARLES Self - patient is the insured 3 4 ANTHEM Primary [address] [place] [address] [id number] CABRERA , CHARLES Self - patient is the insured 4 [employer] [facility] [address] [place] [address] [id number] CABRERA , CHARLES Self - patient is the insured 3 4 [employer] -termed 22 [address] [place] [address] [id number] CABRERA , CHARLES Self - patient is the insured 2 3 zMEDICAID [facility] after [employer]- termed 22 [address] [place] [address] [id number] CABRERA , CHARLES Self - patient is the insured 2 3 Medical (General) History Medical History History ICD Code ESURE HTN Migraines Cervical cancer Surgical History Surgery Date(Month/Year) CERVICAL CANCER HERNIA ESURE CYST UNDER RIGHT ARM LANCED object removed from kidney and ureter 2022 Hospitalization History Reason Date(Month/Year) see above
--- OUTSIDE RECORDS SUMMARY | 2025-02-06 13:32 | XMS_ITS | Patient Health Record ---
Author Organization [facility] Address [address] [place] [address] Care Team Providers Care Crew Leader Name Role Phone [facility], [facility] Care Provider Unavailable Allergies Allergen (clinical drug ingredient) Drug/Non Drug Allergy documented on EMR Reaction Allergy Type Onset Date Status nubain (uncoded) gastrointestinal upset Allergy Active hydrocodone HYDROcodone severe itching Drug Allergy Active Reason For Referral No Information Social History Tobacco Use: Social History Observation Description Date Details (start date - stop date) Current Smoker NA - NA Tobacco Control (Standard) Question Answer Notes Tobacco use: Current smoker How often do you smoke cigarettes? Every day Are you interested in quitting? Thinking about q uitting Problems Problem Type SNOMED Code ICD Code Onset Dates Problem Status W/U Status Risk Notes Problem Hypertension (29183690) Hypertension (I10) Active confirmed Problem Migraine (47881523) Migraine (G43.909) Active confirmed Problem Skin sensation disturbance (07357154) Hand tingling (R20.2) Active confirmed Problem Tobacco user (203697480) Cigarette nicotine dependence without complication (F17.210) Active confirmed Plan Of Treatment No Information Insurance Providers Payer Name Payer Address Payer Phone Subscriber Number Group Number Insured Name Patient Relationship to Insured Coverage Start Date Coverage End Date [facility] [address] [place] [id number] [phone] [id number] Myriam Nascimento Self - patient is the insured Medical (General) History Medical History History ICD Code Hypertension I10 Migraine G43.909 Surgical History Surgery Date(Month/Year) hernia Hospitalization History Reason Date(Month/Year) surgeries
--- OUTSIDE RECORDS SUMMARY | 2025-02-06 13:32 | XMS_ITS | Clinical Summary ---
Author Organization [facility] Address [address], [address] [place] [address] Care Team Providers Care Corral Boss Name Role Phone Seb Vera MD Primary Care Provider [phone] Allergies Active Allergy Reactions Criticality Noted Date Comments Nalbuphine Hcl Nausea And Vomiting Low 06/17/2014 Hydrocodone-Acetaminophen Nausea And Vomiting Medium 0 10/04/2015 Medications valACYclovir (VALTREX) 500 MG tablet 0 09/24/2015 Active Active Problems No known active problems Immunizations Immunization Administration Dates Next Due PPD Test 07/27/2017 TDaP, ADACEL (age 10y-64y), BOOSTRIX (age 10y+), IM, 0.5mL 09/08/2012 Family History Medical History Relation Name Comments Diabetes Father Relation Name Status Comments Father Alive Social History Tobacco Use Types Packs/Day Years Used Date Smoking Tobacco: Every Day Cigarettes 1 21 Smokeless Tobacco: Never Tobacco Cessation:Ready to Q uit: No; Counseling Given: No Alcohol Use Standard Drinks/Week Comments No 0 (1 standard drink = 0.6 oz pur e alcohol) Interpersonal Safety Domain Source: IP Abuse Scr eening Answer Date Recorded Read-Only, Retired: Physical Abuse Denies 12/10/2022 Read-Only, Retired: Verbal Abuse Denies 12/10/2022 Read-Only, Retired: Emotional abuse Denies 12/10/2022 Read-Only, Retired: Financial Abuse Denies 12/10/2022 Read-Only, Retired: Sexual abuse Denies 12/10/2022 Comments No Sex and Gender Information Value Date Recorded Sex Assigned at Not on file Legal Sex Female 10:11 AM EST Gender Identity Not on file Sexual Orientation Not on file Last Filed Vital Signs Vital Sign Reading Time Taken Comments Blood Pressure 171/104 12/10/2022 2:02 AM EDT Pulse 99 12/10/2022 2:02 AM EDT Temperature 36.8 C (98.2 F) 12/10/2022 2:02 AM EDT Respiratory Rate 18 12/10/2022 2:02 AM EDT Oxygen Saturation 98% 12/10/2022 2:02 AM EDT Inhaled Oxygen Concentration - - Weight 63.5 kg (140 lb) 12/10/2022 2:02 AM EDT Height 167.6 cm (5' 6 ) 12/10/2022 2:02 AM EDT Body Mass Index 22.6 12/10/2022 2:02 AM EDT Plan of Treatment Health Maintenance Due Date Last Done Comments Depression Screen 1992 Varicella vaccine (1 of 2 - 13+ 2-dose series) 1993 Hepatitis B vaccine (1 of 3 - 19+ 3-dose series) 11/05/1999 Pneumococcal 0-49 years Vaccine (1 of 2 - PCV) 11/05/1999 HPV (without or with Pap) 2010 Breast cancer screen 2020 Lipids 2020 Cervical cancer screen 03/11/2021 Pap smear 03/11/2021 03/11/2018 DTaP/Tdap/Td vaccine (2 - Td or Tdap) 09/08/2022 09/08/2012 Flu vaccine (#1) 12/02/2024 COVID-19 Vaccine ( - season) 2025 HIV screen Completed 02/09/2019, 07/27/2018 Hepatitis C screen Completed 02/14/2019, 1 , 07/27/2018, Additional history exists HPV vaccine (No Doses Required) Completed Hepatitis A vaccine Aged Out No longe r eligible based on patient's age to complete this topic Hib vaccine Aged Out No longer eligi ble based on patient's age to complete this topic Meningococcal (ACWY) vaccine Aged Out No longer eligible based on patient's age to complete this topic Meningococcal B vaccine Aged Out No l onger eligible based on patient's age to complete this topic Polio vaccine Aged Out No longer elig ible based on patient's age to complete this topic Procedures Procedure Name Priority Date/Time Associated Diagnosis Comments HEPATITIS C RNA, QUANTITATIVE, PCR Routine 02/14/2019 6:25 AM EDT HIV SCREEN Routine 02/09/2019 7:40 AM EDT TRICHOMONAS VAGINALIS RNA, QUALITATIVE, TMA, PAP VIAL Routine 03/11/2018 2:56 PM EST Vaginal discharge from Last 3 Months or Most Recently Relevant to Health Maintenance Results * (ABNORMAL) Hepatitis C RNA, quantitative, PCR (02/14/2019 6:25 AM EDT) Specimen Description .PLASMA 02/14/2019 6:25 AM EDT [facility] Special Requests QUALITIATIVE 02/14/2019 6:25 AM EDT [facility] Direct Exam HCV RNA DETECTED [id number] IU/ML (5.83 LOG IU/ML) This test is a sensitive method for quantitating HCV RNA viral loads in plasma. It utilizes RT-PCR in the FDA approved Lionel Ampliprep/Taqma n 48 System. This test is intended for detecting and quantifying HCV RNA viral loads in the range of 15 IU/mL to 100,000,000 IU/mL (1.18 log IU/mL to 8.00 log IU/mL). Patients should have confirmed HCV infection prior to RNA quantification. This test has been developed to monitor disease progression and efficacy of anti-HCV drug therapy. This test has been optimized for HCV genotypes 1-6.(A) 02/14/2019 6:25 AM EDT [facility] Direct Exam Results reported to the appropriate Health Department 02/14/2019 6:25 AM EDT [facility] Blood Plasma 02/14/2019 6:25 AM EDT 02/14/2019 8:03 AM EDT Zafar Brennan HYDROGEN TREATER - PATTERN MOLDER IMMUNOLOGY ORDERABLES F inal Result [facility] [address] [place] [address], [facility] [phone] [facility] [address] [place] [address], [facility] [phone] * HIV Screen (02/09/2019 7:40 AM EDT) HIV Ag/Ab NONREACTIVE NONREACTIVE 02/09/2019 7:40 AM EDT [facility] Comment: No laboratory evidence of HIV infection. If acute HIV infection is suspected, consider testing for HIV-1 RNA. 02/09/2019 7:40 AM EDT 02/09/2019 8:19 AM EDT Zafar Brennan HYDROGEN TREATER - PATTERN MOLDER IMMUNOLOGY ORDERABLES F inal Result [facility] [address] [place] [address], [facility] [phone] [facility] [address] [place] [address], [facility] [phone] from Last 3 Months or Most Recently Relevant to Health Maintenance Insurance [employer] Care Teams Corral Boss Relationship Specialty Start Date End Date Seb Vera MD [address] [place] [address] [place] PCP - General 09/08/12
--- OUTSIDE RECORDS SUMMARY | 2025-02-06 13:32 | XMS_ITS | Clinical Summary ---
Author Organization [facility] Address [address] [place], [place] [id number] Care Team Providers Care Furniture Stainer Name Role Phone Unavailable Primary Care Provider Unavailabl e Allergies Active Allergy Reactions Criticality Noted Date Comments Nalbuphine Vomiting 12/10/2022 Medications acetaminophen (TYLENOL) 325 mg tablet Take 2 tablets by mouth every 6 hours as needed for pain. 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 Last address used for calculation [address] 12/11/2022 Comments Unknown Sex and Gender Information Value Date Recorded Sex Assigned at Not on file Legal Sex Female 5:02 AM EDT Gender Identity Not on file Sexual Orientation Not on file Last Filed Vital Signs Vital Sign Reading Time Taken Comments Blood Pressure 136/97 12/10/2022 4:30 PM EDT Pulse 74 12/10/2022 4:30 PM EDT Temperature 37.1 C (98.7 F) 12/10/2022 2:00 PM EDT Respiratory Rate 16 12/10/2022 4:30 PM EDT Oxygen Saturation 98% 12/10/2022 4:30 PM EDT Inhaled Oxygen Concentration - - Weight 63.5 kg (140 lb) 12/10/2022 5:13 AM EDT Height 167.6 cm (5' 6 ) 12/10/2022 5:13 AM EDT Body Mass Index 22.6 12/10/2022 5:13 AM EDT Plan of Treatment Health Maintenance Due Date Last Done Comments Anxiety Screening 1998 Depression Screening 1998 HIV Screening 1998 Hepatitis C Screening 1998 DTaP,Tdap,Td Vaccine (1 - Tdap) 11/05/1999 Cervical Cancer Screening 2001 Hepatitis B Vaccine (2 of 3 - 19+ 3-dose series) 01/2901/02/2004 HPV Vaccine (1 - 3-dose SCDM series) 11/05/2007 Mammogram Screening 2020 Covid-19 Vaccine (2024- season) 2025 Influenza Vaccine (#1) 2025
--- OUTSIDE RECORDS SUMMARY | 2025-02-06 13:37 | XMS_ITS | CCD ---
Author Organization [facility] Care Team Providers Care Supervisor Assembly Stock Name Role Phone UNKNOWN, PCP Unavailable Unavailable TAD RASMUSSEN Unavailable Unavailab le ANU ZAFAR Referring Unavailable PRACK, MALCOLM G Primary Care Unavailable ANU, ZAFAR Referring Unavailable PRACK, MALCOLM G Primary Care Unavailable ANU, ZAFAR Referring Unavailable PRACK, MALCOLM G Primary Care Unavailable ANU, ZAFAR Referring Unavailable PRACK, MALCOLM G Primary Care Unavailable Prack, Malcolm G Primary Care Provider Samuel YANES Primary Care Physician Letitia Rawls Unavailable Unavailable NONE, XXXX Primary Care Physician Unavailab FIFI Lan [facility] Primary Care Unavailable JOSE VELIZ Attending Unavailable JOSE VELIZ Consulting Unavailable JOSE VELIZ Admitting Unavailable AIMEE ADAIR Primary Care Physician Elvin LARA Attending Unavailable Vida Guevara Admitting Unavailable Vida Guevara Attending Unavailable Vida Guevara Referring Unavailable CATRACHITO, AIMEE Primary Care Unavailable CATRACHITO AIMEE Admitting Unavailable CATRACHITO, AIMEE Primary Care Unavailable CATRACHITO AIMEE Attending Unavailable Elpidio Mederos Admitting Unavailable Elpidio Mederos Attending Unavailable Vida Guevara Admitting Unavailable Vida Guevara Attending Unavailable CATRACHITO, AIMEE Primary Care Unavailable Elpidio Mederos Attending Unavailable CATRACHITO, AIMEE Primary Care Unavailable Carlos Alberto Quiroz Attending Unavailable Carlos Alberto Quiroz Attending Unavailable CATRACHITO AIMEE Primary Care Unavailable Jame Aiken Attending Unavailable Jame Aiken Admitting Unavailable CATRACHITO, AIMEE Primary Care Unavailable Jame Aiken Referring Unavailable Jame Aiken Attending Unavailable Jame Aiken Admitting Unavailable AIMEE ADAIR Primary Care Unavailable AIMEE ADAIR Primary Care Unavailable Nelli, Jame Mcrae Referring Unavailable Jame Aiken Attending Unavailable Nelli, Jame Mcrae Admitting Unavailable AIMEE ADAIR Primary Care Unavailable Nelli, Jame Mcrae Referring Unavailable Nelli, Jame Mcrae Attending Unavailable Nelli, Jame Mcrae Admitting Unavailable Nelli, Jame Mcrae Referring Unavailable Nelli, Jame Mcrae Attending Unavailable Nelli, Jame Mcrae Admitting Unavailable CATRACHITO, AIMEE Primary Care Unavailable JERI FERNANDEZ Attending Unavailable JERI FERNANDEZ Attending Unavailable Aimee Adair MD Unavailable [phone] Abisai Wang DO Unavailable Elvin LARA Attending Unavailable CATRACHITO, AIMEE Primary Care Unavailable Abisai Wang Attending Unavailable AIMEE ADAIR Primary Care Unavailable Ankit Parker DO Emergency Provider [phone] NO FAMILY, PHYSICIAN Primary Care Provider Unava ilable Bahman Jones MD Admit Provider [phone] Bahman Jones MD Attending Provider [phone] Bahman Jones MD Other Provider Lorena Villarreal MD Emergency Provider NO FAMILY, PHYSICIAN Primary Care Unavailable Bahman Jones Admitting Unavailable Bahman Jones Attending Unavailable Lorena Villarreal Admitting Unavailable Lorena Villarreal Attending Unavailable NO FAMILY, PHYSICIAN Primary Care Unavailable Allergies Allergy Classification Reported Allergen(s) Allergy Type Date of Onset Reaction(s) Facility Nalbuphine (2 sources) Nalbuphine; Translations: [Nubain] Drug Allergy Vomiting (disorder) [facility] Repository Comment on above: vomiting immediately Opioid Agonists (2 sources) HYDROcodone; Translations: [HYDROcodone] Drug Allergy Vomiting (disorder) [facility] Repository (5 sources) Acetaminophen / HYDROcodone Drug Allergy 6 Nausea And Vomiting [place], [place] (2 sources) Nalbuphine Drug Allergy 5 Nausea And Vomiting [place], [place] (20 sources) HYDROcodone; Translations: [hydrocodone] Drug Allergy 1 Vomiting (disorder) [facility] (20 sources) Nalbuphine; Translations: [nalbuphine] Drug Allergy 5 Vomiting (disorder), Nausea And Vomiting [facility] Comment on above: vomiting immediately vomiting immediately (5 sources) Nalbuphine; Translations: [Nubain] Drug Allergy 3 [facility] Repository (1 source) HYDROcodone Drug Allergy 1 [facility] Repository (1 source) Nalbuphine Drug Allergy 1 [facility] Repository Medications Current Medications Medication Drug Class(es) Dates Sig (Normalized) Sig (Original) acetaminophen 650 mg oral tablet (15 sources) Start: 06-20-2019 take 650 mg by mouth every six hours as needed for pain Tylenol 650 mg, Oral, q6hr, PRN as needed for pain, Refills(s) 0 Start Date: 06/20/19 Status: Ordered Al[employer] The[employer] Multiple Vitamins with Minerals oral tablet (7 sources) Start: 10-27-2022 take 1 tablet by mouth once daily Al[employer] The[employer] Multiple Vitamins with Minerals oral tablet Oral, Daily, Refill(s) 0 Start Date: 10/27/22 Status: Ordered amoxicillin 875 mg / clavulanate 125 mg oral tablet (1 source) Penicillin-class Antibacterial Start: 11-13-2023 End: 11-23-2023 take 1 tablet by mouth every twelve hours amoxicillin-clav ulanate 875 mg-125 mg Tab 1 tab(s), Oral, q12hr for 10 day(s) Start Date: 11/13/23 Stop Date: 11/23/23 Status: Ordered Ascorbic Acid (7 sources) Vitamin C Start: 10-27-2022 Vitamin C Daily, Refills(s) 0 Start Date: 10/27/22 Status: Ordered bifidobacterium infantis 4 mg oral capsule (5 sources) Start: 06-08-2019 take 1 capsule by mouth once daily Align 4 mg oral capsule 4 mg = 1 cap(s), Oral, Daily, Take after completing the Antibiotics course, # 28 cap(s), Refills(s) 0, Pharmacy: [facility] [place] #37, 168, cm, 06/08/19 13:32:00 EST, Height/Length Measured, 64.6, kg, 06/08/19 13:32:00 EST, Weight Measured Start Date: 06/08/19 Status: Ordered busPIRone hydrochloride 10 mg oral tablet (4 sources) Start: 12-23-2021 busPIRone 10 mg Tab Refills(s) 0 Start Date: 12/23/21 Status: Ordered cephalexin 500 mg oral capsule (5 sources) Cephalosporin Antibacterial Start: 12-10-2024 take 1 capsule by mouth twice daily Start: 12-09-2023 cephalexin (Ke flex) 500 MG capsule Take 500 mg by mouth in the morning and 500 mg at noon and 500 mg in the evening and 500 mg before bedtime. 12/09/2023 Active cyclobenzaprine hydrochloride 10 mg oral tablet (6 sources) Muscle Relaxant Start: 11-03-2023 take 1 tablet by mouth three times daily as needed cyclobenzaprine (Flexeril) 10 MG tablet Take 10 mg by mouth 3 (three) times a day as needed 11/03/2023 Active diphenhydrAMINE hydrochloride 25 mg oral capsule (5 sources) Histamine-1 Receptor Antagonist Start: 04-15-2021 take 1-2 capsules by mouth three times daily as needed Benadryl 25 mg Cap 1-2 cap(s), Oral, TID, PRN as needed for itching, # 20 cap(s), Refills(s) 0, Pharmacy: [facility] #37, 168, cm, 04/15/21 13:28:00 EST, Height/Length Dosing, 63, kg, 04/15/21 13:28:00 EST, Weight Dosing Start Date: 04/15/21 Status: Ordered doxycycline hyclate 100 mg delayed release oral tablet (9 sources) Tetracycline-cla ss Drug Start: 12-25-2023 End: 01-01-2024 doxycycline (Doryx) 100 MG EC tablet Indications: Facial abscess Take 1 tablet (100 mg) by mouth in the morning and 1 tablet (100 mg) before bedtime. Do all this for 7 days. Do not crush or chew. Take with a full glass of water and do not lie down for at least 30 minutes after.. 14 tablet 12/25/2023 01/01/2024 Active Start: 12-15-2023 End: 12-29-2023 doxycycline (Vibramycin) 100 MG capsule Indications: Facial abscess Take 1 capsule (100 mg) by mouth in the morning and 1 capsule (100 mg) before bedtime. Do all this for 14 days. Take with at least 8 ounces (large glass) of water, do not lie down for 30 minutes after. 28 capsule 12/15/2023 12/29/2023 Active Start: 12-07-2023 take 1 capsule by [facility] twice daily doxycycline hyclate 100 mg Cap 100 mg = 1 cap(s), Oral, BID, # 20 cap(s), Refills(s) 0, Pharmacy: [facility] #[id number], 168, cm, 12/07/23 17:42:00 EDT, Height/Length Dosing, 62.4, kg, 12/07/23 17:42:00 EDT, Weight Dosing Start Date: 12/07/23 Status: Ordered Start: 12-07-2023 take 1 capsule by [facility] once daily doxycycline (Vibramycin) 100 MG capsule Take 100 mg by mouth Daily 12/07/2023 Active escitalopram 10 mg oral tablet (2 sources) Serotonin Reuptake Inhibitor Start: 12-09-2024 take 1 tablet by mouth once daily famotidine 20 mg oral tablet (5 sources) Histamine-2 Receptor Antagonist Start: 04-15-2021 take 1 tablet by mouth twice daily Pepcid 20 mg Tab 20 mg = 1 tab(s), Oral, BID, # 20 tab(s), Refills(s) 0, Pharmacy: [facility] #37, 168, cm, 04/15/21 13:28:00 EST, Height/Length Dosing, 63, kg, 04/15/21 13:28:00 EST, Weight Dosing Start Date: 04/15/21 Status: Ordered hydroCHLOROthiazide 12.5 mg oral tablet (4 sources) Thiazide Diuretic Start: 12-23-2021 hydrochlorothiazide 12.5 mg Tab Refills(s) 0 Start Date: 12/23/21 Status: Ordered ibuprofen 600 mg oral tablet (20 sources) Nonsteroidal Anti-inflammator y Drug Start: 11-13-2023 take 1 tablet by mouth every six hours ibuprofen 600 MG tablet Take 600 mg by mouth every 6 (six) hours 11/13/2023 Active Start: 06-17-2019 End: 10-12-2020 take 1 tablet by mouth three times daily as needed for pain Ibuprofen 800 mg tablet Discontinued 800 MG PO Three times daily as needed for Pain March 23, 2020 1:00am October 12, 2020 8:37pm Start: 07-24-2018 End: 10-22-2018 take 1 tablet by mouth three times daily as needed for pain Ibuprofen 800 mg tablet Discontinued 800 MG PO Three times daily as needed for pain July 24, 2018 12:00am October 22, 2018 1:13pm magnesium, chelated 100 mg oral tablet (7 sources) Start: 10-27-2022 take 1 mg by mouth three times daily magnesium amino acids chelate 100 mg oral tablet mg tab(s), Oral, TID, Refills(s) 0 Start Date: 10/27/22 Status: Ordered 24 hr metoprolol succinate 25 mg extended release oral tablet (6 sources) beta-Adrenergic Christina Start: 11-03-2023 take 1 tablet by mouth once daily metoprolol succinate XL (Toprol-XL) 25 MG 24 hr tablet Take 25 mg by mouth Daily 11/03/2023 Active MiraLax oral powder for reconstitution (2 sources) Start: 04-29-2020 MiraLax oral powder for reconstitution 17 gram, Oral, Daily, 527 gram, Refill(s) 0, dissolve in water before taking, [facility] #37, 167.6, cm, 04/29/20 16:01:00 EST, Height/Length Dosing, 65.5, kg, 04/29/20 16:01:00 EST, Weight Dosing Start Date: 04/29/20 Status: Ordered 24 hr nicotine 0.875 mg/hr transdermal system (2 sources) Cholinergic Nicotinic Agonist Start: 12-10-2024 apply 1 dose transdermal route every twenty-four hours Beverly (No Known Home Meds) (3 sources) Start: 10-12-2020 Beverly (No Known Home Meds) Active October 12, 2020 12:00am polyethylene glycol 3350 12916 mg powder for oral solution (3 sources) Osmotic Laxative Start: 04-29-2020 MiraLax oral powder for reconstitution 17 gram, Oral, Daily, 527 gram, Refill(s) 0, dissolve in water before taking, [facility] #37, 167.6, cm, 04/29/20 16:01:00 EST, Height/Length Dosing, 65.5, kg, 04/29/20 16:01:00 EST, Weight Dosing Start Date: 04/29/20 Status: Ordered sofosbuvir 400 mg / velpatasvir 100 mg oral tablet (5 sources) Hepatitis C Virus NS5A Inhibitor, Hepatitis C Virus Nucleotide Analog NS5B Polymerase Inhibitor Start: 10-22-2019 Epclusa 400 mg-100 mg oral tablet = 1 tab(s), Refills(s) 0 Start Date: 10/22/19 Status: Ordered sulfamethoxazole 800 mg / trimethoprim 160 mg oral tablet (8 sources) Dihydrofolate Reductase Inhibitor Antibacterial, Sulfonamide Antimicrobial Start: 12-14-2023 End: 01-01-2024 take 1 tablet by mouth once in the morning, then take 1 tablet by mouth once at bedtime sulfamethoxazole-t rimethoprim (Bactrim DS) 800-160 MG per tablet Indications: Facial abscess Take 1 tablet by mouth in the morning and 1 tablet before bedtime. Do all this for 7 days. 14 tablet 12/25/2023 01/01/2024 Active Start: 07-24-2018 End: 10-22-2018 take 1 tablet by mouth twice daily Sulfamethoxazole-Trimethoprim (Bactrim D s) 800-160 mg tablet Discontinued 1 TAB PO Twice daily July 24, 2018 12:00am October 22, 2018 1:13pm Triamcinolone (5 sources) Corticosteroid Start: 04-15-2021 triamcinolone Top 0.1% Crm 30 gram 1 ronni, Topical, TID, 30 gram, Refill(s) 0, to affected area, [facility] #37, 168, cm, 04/15/21 13:28:00 EST, Height/Length Dosing, 63, kg, 04/15/21 13:28:00 EST, Weight Dosing Start Date: 04/15/21 Status: Ordered Start: 04-15-2021 triamcinolone Top 0.1% Crm 30 gram 1 ronni, Topical, TID, 30 gram, Refill(s) 0, to affected area, [facility] #37, 168, cm, 04/15/21 13:28:00 EST, Height/Length Dosing, 63, kg, 04/15/21 13:28:00 EST, Weight Dosing Start Date: 04/15/21 Status: Ordered Turmeric extract (7 sources) Start: 10-27-2022 take 1 mg by mouth once daily Turmeric mg, Oral, Daily, Refill(s) 0 Start Date: 10/27/22 Status: Ordered Vitamin B Complex oral capsule (7 sources) Start: 10-27-2022 Vitamin B Comp gladis oral capsule Oral, Daily, Refill(s) 0 Start Date: 10/27/22 Status: Ordered Completed/Discontinued Medications Medication Drug Class(es) Dates Sig (Normalized) Sig (Original) acetaminophen 325 mg / oxyCODONE hydrochloride 5 mg oral tablet (3 sources) Opioid Agonist Start: 07-24-2018 End: 07-27-2018 take 1 tablet by mouth every six hours as needed for pain Oxycodone-Acetamin ophen (Percocet) 5-325 mg tablet Discontinued 1 TAB PO Q6H as needed for pain 10 3 July 24, 2018 July 26, 2018 12:00am July 27, 2018 12:02am [id number] 200 actuat albuterol 0.09 mg/actuat metered dose inhaler (15 sources) beta2-Adrenergic Agonist Start: 08-03-2020 take 1 dose by inhalation four times daily Proventil HFA 90 mcg/inh Aerosol 2 puff(s), Inhalation, QID, 1 EA, Refill(s) 0 Start Date: 08/03/20 Status: Ordered cetirizine hydrochloride 10 mg oral tablet (3 sources) Histamine-1 Receptor Antagonist Start: 10-26-2017 End: 07-24-2018 take 1 tablet by mouth once daily as needed Cetirizine (Zyrtec) 10 mg tablet Discontinued 10 MG PO Daily as needed for allergy symptoms October 26, 2017 12:00am July 24, 2018 12:00am metroNIDAZOLE 500 mg oral tablet (8 sources) Nitroimidazole Antimicrobial Start: 03-23-2020 End: 10-12-2020 take 1 tablet by mouth twice daily Metronidazole 500 mg tablet Discontinued 500 MG PO Twice daily 14 March 23, 2020 1:00am October 12, 2020 8:37pm Start: 06-20-2019 take 1 tablet by oskar three times daily Flagyl 250 mg Tab 250 mg = 1 tab(s), Oral, TID, Refills(s) 0, Infection or prophylaxis for antibiotics Start Date: 06/20/19 Status: Ordered topiramate 25 mg oral tablet (3 sources) Start: 03-23-2020 End: 10-12-2020 take 1 tablet by mouth once daily as needed for headache Topiramate 25 mg tablet Discontinued 25 MG PO Daily as needed for Migraine Headache March 23, 2020 1:00am October 12, 2020 8:37pm traMADol hydrochloride 50 mg oral tablet (3 sources) Opioid Agonist Start: 11-01-2018 End: 03-23-2020 take 0.5-1 tablets by mouth every six hours as needed for pain Tramadol (Ultram) 50 mg tablet Discontinued 50 MG PO Q6H as needed for pain 45 7 November 01, 2018 12:00am March 23, 2020 4:51pm 1/2 - 1 tab po q 6 hours prn pain valACYclovir 500 mg oral tablet (10 sources) Herpesvirus Nucleoside Analog DNA Polymerase Inhibitor, Herpes Simplex Virus Nucleoside Analog DNA Polymerase Inhibitor, Herpes Zoster Virus Nucleoside Analog DNA Polymerase Inhibitor Start: 09-24-2015 End: 10-12-2020 take 1 tablet by mouth once daily Valacyclovir (Valtrex) 500 mg Tablet Discontinued 500 MG PO Daily October 22, 2018 12:00am October 12, 2020 8:37pm Problems Active Problems Problem Classification Problem Date Documented Date Episodic/Chronic Cancer of cervix (18 sources) Squamous cell carcinoma of cervix; Translations: [Malignant neoplasm of cervix uteri, unspecified] Onset: 12-09-2023 03-28-2019 Chronic Endometriosis (18 sources) Endometriosis (clinical); Translations: [Endometriosis, unspecified] Onset: 12-09-2023 07-15-2013 Chronic Essential hypertension (20 sources) Hypertensive disorder; Translations: [Essential hypertension] Onset: 12-09-2023 07-24-2018 Chronic Genitourinary symptoms and ill-defined conditions (20 sources) Stress incontinence (female) (male); Translations: [Genuine stress incontinence] Onset: 12-23-2021 Chronic Headache; including migraine (20 sources) Migraine; Translations: [Migraine, unspecified, not intractable, without status migrainosus] Onset: 08-03-2022 07-26-2015 Chronic Headache; including migraine (6 sources) Headache; Translations: [Headache] Onset: 12-14-2023 12-14-2023 Episodic Comment on above: Problem List clean-u p per request of Phys. EHR Cmte Hepatitis (18 sources) Chronic hepatitis C; Translations: [Chronic viral hepatitis C] Onset: 12-09-2023 06-08-2019 Chronic Hepatitis (15 sources) Viral hepatitis C 07-24-2018 Episodic Menstrual disorders (2 sources) Menorrhagia; Translations: [Excessive and frequent menstruation with regular cycle] Onset: 11-13-2023 Chronic Mood disorders (5 sources) Major depressive disorder; Translations: [Major depressive disorder, single episode, unspecified] Onset: 12-07-2024 12-08-2024 Chronic Other aftercare (1 source) Other correction (current) drug therapy; Translations: [[facility] CURRENT DR[facility]APY] Onset: 08-05-2022 Episodic Other female genital disorders (1 source) Pain in female genitalia on intercourse; Translations: [Dyspareunia] Onset: 11-13-2023 Chronic Other female genital disorders (6 sources) Vaginal discharge; Translations: [Other specified noninflammatory disorders of vagina] Onset: 12-14-2023 12-14-2023 Episodic Comment on above: Problem List clean-u p per request of Phys. EHR Cmte Other injuries and conditions due to external causes (1 source) Foreign body in genitourinary tract, part unspecified, initial encounter; Translations: [Foreign body in genitourinary tract, part unspecified, initial encounter] Onset: 12-10-2022 Episodic Other skin disorders (1 source) Epidermoid cyst; Translations: [Epidermal cyst] Onset: 12-07-2023 Episodic Residual codes; unclassified (1 source) Left against medical advice; Translations: [Procedure and treatment not carried out due to patient leaving prior to being seen by health care provider] Onset: 10-10-2023 Episodic Residual codes; unclassified (1 source) Tobacco user; Translations: [Tobacco use] Onset: 10-10-2023 Episodic Residual codes; unclassified (2 sources) Pelvic organ finding; Translations: [Acquired absence of both cervix and uterus] Onset: 11-13-2023 Episodic Residual codes; unclassified (1 source) Body mass index 20-24 - normal; Translations: [Body mass index (BMI) 22.0-22.9, adult] Onset: 12-07-2023 Episodic Spondylosis; intervertebral disc disorders; other back problems (1 source) Backache; Translations: [Dorsalgia, unspecified] Onset: 10-27-2022 Episodic Substance-related disorders (20 sources) Smoker; Translations: [Substance abuse] Onset: 08-05-2022 07-26-2015 Chronic Comment on above: Added secondary to d ocumentation in Social History. history of pain med abuse Added secondary to d ocumentation in Social History. history of pain med abuse Outside Source Comme nt: Comment on above: Added secondary to documentation in Social History. Suicide and intentional self-inflicted injury (7 sources) Suicidal thoughts; Translations: [Suicidal ideations] Onset: 12-12-2024 12-07-2024 Episodic Superficial injury; contusion (1 source) Contusion of neck; Translations: [Contusion of unspecified part of neck, initial encounter] 12-12-2024 Episodic Unclassified (1 source) Trichomonal vulvovaginitis / A59.01(ICD-10) Onset: 08-14-2017 Unclassified (1 source) Noninfective gastroenteritis and colitis, unspecified / K52.9(ICD-10) Onset: 08-14-2017 Unclassified (1 source) Personal history of malignant neoplasm of oth prt uterus / Z85.42(ICD-10) Onset: 08-14-2017 Unclassified (1 source) Nicotine dependence, unspecified, uncomplicated / F17.200(ICD-10) Onset: 08-14-2017 Unclassified (1 source) Right lower quadrant pain / R10.31(ICD-10) Onset: 08-14-2017 Unclassified (1 source) Diarrhea, unspecified / R19.7(ICD-10) Onset: 08-14-2017 Unclassified (1 source) Nausea with vomiting, unspecified / R11.2(ICD-10) Onset: 08-14-2017 Unclassified (20 sources) Methicillin resistant Staphylococcus aureus (organism) Onset: 02-17-2010 02-22-2010 Comment on above: MRSA vagina 02/17/10 MRSA vagina 02/17/10 Outside Source Comme nt: Comment on above: MRSA vagina 02/17/10 Unclassified (15 sources) Pain of right breast 07-05-2021 Unclassified (20 sources) Asymptomatic microscopic hematuria 12-23-2021 Unclassified (2 sources) Please call [phone] on Thursday, December 12, 2024 to speak with a child support case officer to set up further appointments. Past or Other Problems Problem Classification Problem Date Documented Date Episodic/Chronic Abdominal hernia (19 sources) Inguinal hernia; Translations: [Umbilical hernia] Onset: 11-13-2023 03-28-2019 Episodic Comment on above: left left Abdominal pain (4 sources) Abdominal pain; Translations: [Unspecified abdominal pain] Onset: 10-28-2021 Episodic Acquired foot deformities (18 sources) Bunion; Translations: [Bunion of right foot] Onset: 12-09-2023 07-26-2015 Episodic Bacterial infection; unspecified site (19 sources) Methicillin resistant Staphylococcus aureus infection; Translations: [History of methicillin resistant Staphylococcus aureus infection] Onset: 12-07-2023 10-24-2013 Episodic Calculus of urinary tract (20 sources) Kidney stone; Translations: [Calculus of kidney] Onset: 12-23-2021 Episodic Genitourinary symptoms and ill-defined conditions (15 sources) Microscopic hematuria; Translations: [Asymptomatic microscopic hematuria] Onset: 12-23-2021 Episodic Lymphadenitis (20 sources) Inguinal lymphadenopathy; Translations: [Localized enlarged lymph nodes] Onset: 12-09-2023 07-26-2015 Episodic Comment on above: left left Outside Source Comme nt: Comment on above: left Nonmalignant breast conditions (3 sources) Mastodynia; Translations: [Mastodynia] Onset: 12-09-2023 12-09-2023 Episodic Nonspecific chest pain (14 sources) Chest pain; Translations: [Chest pain, unspecified] Onset: 10-28-2021 Episodic Other injuries and conditions due to external causes (3 sources) Foreign body in bladder; Translations: [Foreign body in bladder, initial encounter] Onset: 12-10-2022 12-09-2023 Episodic Other skin disorders (4 sources) Ruptured epidermal cyst; Translations: [Epidermal cyst] Onset: 12-09-2023 12-07-2023 Episodic Ovarian cyst (18 sources) Cyst of ovary; Translations: [Unspecified ovarian cyst, unspecified side] Onset: 12-09-2023 03-28-2019 Episodic Skin and subcutaneous tissue infections (8 sources) Cellulitis of right foot; Translations: [Cellulitis of right lower limb] Onset: 02-17-2010 12-09-2023 Episodic Results Test Name Value Interpretation Reference Range Facility Alanine aminotransferase [En zymatic activity/volume] in Serum or PlasmaOrdered By: Lorena Villarreal on 12-12-2024 ALT [Catalytic activity/Vol] 14 U/L Normal 7-52 [facility] Comment on above: Performed By: #### P T, CBC, BNP, HCGQUAL, CK, MG, CMP, LACTIC, HS TROP ####[place] [id number] [facility] Albumin [Mass/volume] in Ser um or Plasma by Bromocresol green (BCG) dye binding methoOrdered By: Lorena Villarreal on 12-12-2024 Albumin BCG dye [Mass/Vol] 4.9 g/dL 3.5-5.7 [facility] Alkaline phosphatase [Enzyma tic activity/volume] in Serum or PlasmaOrdered By: Lorena Villarreal on 12-12-2024 ALP [Catalytic activity/Vol] 59 U/L Normal 34-104 [facility] Comment on above: Performed By: #### P T, CBC, BNP, HCGQUAL, CK, MG, CMP, LACTIC, HS TROP ####[place] [id number] [facility] Aspartate aminotransferase [ Enzymatic activity/volume] in Serum or PlasmaOrdered By: Lorena Villarreal on 12-12-2024 AST [Catalytic activity/Vol] 17 U/L Normal 13-39 [facility] Comment on above: Performed By: #### P T, CBC, BNP, HCGQUAL, CK, MG, CMP, LACTIC, HS TROP ####[place] [id number] [facility] BNP ser/plasOrdered By: Marlene Villarreal on 12-12-2024 Natriuretic peptide B (Bld) [Mass/Vol] 25.0 pg/mL Normal 5-100 [facility] Comment on above: Result Comment: PERF ORMED BY: [facility] [address] [id number] PATHOLOGIST [employer] STRAIGHTENER RADHA S MILLI M.D. Performed By: #### P T, CBC, BNP, HCGQUAL, CK, MG, CMP, LACTIC, HS TROP #### [facility] [address] Basophils [#/volume] in Bloo d by Automated countOrdered By: Lorena Villarreal on 12-12-2024 Basophils (Bld) [#/Vol] 0.1 10*3/uL Normal 0.0-0.2 [facility] Comment on above: Result Comment: PERF ORMED BY: [place] [address] PATHOLOGIST [employer] STRA[employer]ENER RADHA MORLEY M.D.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 [facility] Comment on above: Performed By: #### E TAMMY, MG, CBC, CMP ####[facility] [id number] Benzodiazepines Screen Ql (U )Ordered By: Ankit Parker on 12-07-2024 Benzodiazepines Ql (U) Negative Negative [facility] Benzoylecgonine [Presence] i n Urine by Screen methodOrdered By: Ankit Parker on 12-07-2024 Benzoylecgonine Screen Ql (U) Positive High Negative [facility] Bilirubin Test strip Ql (U)O rdered By: Ankit Parker on 12-07-2024 Bilirubin Ql (U) Negative Negative [facility] Bilirubin.total [Mass/volume ] in Serum or PlasmaOrdered By: Ankit Parker on 12-07-2024 Bilirubin [Mass/Vol] 0.8 mg/dL Normal 0.3-1.0 [facility] Comment on above: Performed By: #### E TAMMY, MG, CBC, CMP ####[facility] [id number] [place] [address] Calcium [Mass/volume] in Ser um or PlasmaOrdered By: Ankit Parker on 12-07-2024 Calcium [Mass/Vol] 9.8 mg/dL Normal 8.6-10.3 [facility] Comment on above: Performed By: #### E TAMMY, MG, CBC, CMP ####[facility] [id number] [place] [address] Cannabinoids [Presence] in U rine by Screen methodOrdered By: Ankit Parker on 12-07-2024 Cannabinoids Screen Ql (U) Positive High Negative [facility] Comment on above: These are unconfirme d results and should not be used for legal purposes. Drug Cut-Off Concentration: AMPH 1000 ng/mL YASMANY 200 ng/mL ZARINA 200 ng/mL COCM 300 ng/mL OP 300 ng/mL PCP 25 ng/mL THC 20 ng/mL Carbon dioxide, total [Moles /volume] in Serum or PlasmaOrdered By: Ankit Parker on 12-07-2024 CO2 [Moles/Vol] 29.4 mmol/L Normal 21.0-31.0 [facility] Comment on above: Performed By: #### E TAMMY, MG, CBC, CMP ####[address] Chloride [Moles/volume] in S manuela or PlasmaOrdered By: Ankit Parker on 12-07-2024 Chloride [Moles/Vol] 101 mmol/L Normal 98-107 [facility] Comment on above: Performed By: #### E TAMMY, MG, CBC, CMP ####[address] Color of Urine by AutoOrdere d By: Ankit Parker on 12-07-2024 Color (U) Yellow Normal Yellow [facility] Comment on above: Order Comment: Name Collection Type:: Clean-Voided Midstream Performed By: #### A DDONUAPLUS, URDS, CUU, UHCG ####[address] Complete Blood Count Auto Di ffon 12-07-2024 Mean Corpuscular HGB Conc 33.8 g/dL Normal 32.0-35.0 [facility] Comment on above: Performed By: #### E TAMMY, MG, CBC, CMP ####[address] Monocytes/100 WBC (Bld) 19.27 % Normal 0.00-20.00 [facility] Comment on above: Performed By: #### E TAMMY, MG, CBC, CMP ####[place] [id number] NRBC% 0.0 /100{WBC} Normal 0-0.5 [facility] Comment on above: Performed By: #### E TAMMY, MG, CBC, CMP ####[address] White Blood Count 11.9 [CFU]/mL High 3.8-11.6 [facility] Comment on above: Performed By: #### E TAMMY, MG, CBC, CMP ####[place] [phone] [facility] Comprehensive Metabolic Pane ben 12-07-2024 Albumin [Mass/Vol] 4.4 g/dL Normal 3.5-5.7 [facility] Comment on above: Performed By: #### E TAMMY, MG, CBC, CMP ####[address] Creatinine Clr Calc Pharmacy 94.13 Normal [facility] Comment on above: Result Comment: PERF ORMED BY: [facility] [address] [place] [address] PATHOLOGIST [employer] RADHA MORLEY M.D. Performed By: #### E TAMMY, MG, CBC, CMP ####[place] [id number] [facility] GFR/1.73 sq M.predicted MDRD (S/P/Bld) [Vol rate/Area] mL/min/{1.73_m2} Normal [facility] Comment on above: Performed By: #### E TAMMY, MG, CBC, CMP ####[place] [id number] [facility] Creatinine [Mass/volume] in Serum or PlasmaOrdered By: Ankit Parker on 12-07-2024 Creatinine [Mass/Vol] 0.71 mg/dL Normal 0.60-1.20 [facility] Comment on above: Performed By: #### E TAMMY, MG, CBC, CMP ####[address] Dipstick and Microscopicon 0 12-07-2024 Bacteria,Urine 4+ [HPF] Normal None Seen [facility] Comment on above: Order Comment: Name Collection Type:: Clean-Voided Midstream Performed By: #### A DDONUAPLUS, URDS, CUU, UHCG ####[address] [address] [facility] Bilirubin,Urine Negative Normal Negative [facility] Comment on above: Order Comment: Name Collection Type:: Clean-Voided Midstream Performed By: #### A DDONUAPLUS, URDS, CUU, UHCG ####[address] Glucose Ql (U) Normal Normal Normal [facility] Comment on above: Order Comment: Name Collection Type:: Clean-Voided Midstream Performed By: #### A DDONUAPLUS, URDS, CUU, UHCG ####[place] [id number] [facility] Hyaline Casts,Urine 0-8 Normal 0-8 [facility] Comment on above: Order Comment: Name Collection Type:: Clean-Voided Midstream Performed By: #### A DDONUAPLUS, URDS, CUU, UHCG ####[address] [address] [facility] Mucus,Urine 4+ [LPF] Critically abnormal [facility] Comment on above: Order Comment: Name Collection Type:: Clean-Voided Midstream Performed By: #### A DDONUAPLUS, URDS, CUU, UHCG ####[address] [address] [facility] Nitrite,Urine Positive Normal Negative [facility] Comment on above: Order Comment: Name Collection Type:: Clean-Voided Midstream Performed By: #### A DDONUAPLUS, URDS, CUU, UHCG ####[place] [phone] [facility] Occult Blood,Urine 1+ Normal Negative [facility] Comment on above: Order Comment: Name Collection Type:: Clean-Voided Midstream Performed By: #### A DDONUAPLUS, URDS, CUU, UHCG ####[address] RBC,Urine 3-4 Normal 0-4 [facility] Comment on above: Order Comment: Name Collection Type:: Clean-Voided Midstream Performed By: #### A DDONUAPLUS, URDS, CUU, UHCG ####[address] Specificy [place],Urine 1.027 Normal 1.001-1.030 [facility] Comment on above: Order Comment: Name Collection Type:: Clean-Voided Midstream Performed By: #### A DDONUAPLUS, URDS, CUU, UHCG ####[address] Squamous Epithelial Cell,Urine 5-9 Normal 0-2 [facility] Comment on above: Order Comment: Name Collection Type:: Clean-Voided Midstream Performed By: #### A DDONUAPLUS, URDS, CUU, UHCG ####[address] Urobilinogen,Urine 6 mg/dL Normal Normal [facility] Comment on above: Order Comment: Name Collection Type:: Clean-Voided Midstream Performed By: #### A DDONUAPLUS, URDS, CUU, UHCG ####[address] WBC,Urine 5-9 Normal 0-4 [facility] Comment on above: Order Comment: Name Collection Type:: Clean-Voided Midstream Performed By: #### A DDONUAPLUS, URDS, CUU, UHCG ####[address] Drug Screen,Urineon 12-08-19 25 Amphetamine Screen,Urine Positive Normal Negative [facility] Comment on above: Performed By: #### A DDONUAPLUS, URDS, CUU, UHCG ####[place] [phone] [facility] Barbiturate Screen,Urine Negative Normal Negative [facility] Comment on above: Performed By: #### A DDONUAPLUS, URDS, CUU, UHCG ####[address] [address] [facility] Benzodiazepines Screen,Urine Negative Normal Negative [facility] Comment on above: Performed By: #### A DDONUAPLUS, URDS, CUU, UHCG ####[place] [phone] [facility] Cannabinoid Screen,Urine Positive Normal Negative [facility] Comment on above: Result Comment: Thes e are unconfirmed results and should not be used for legal purposes. Drug Cut-Off Concentration: AMPH 1000 ng/mL YASMANY 200 ng/mL ZARINA 200 ng/mL COCM 300 ng/mL OP 300 ng/mL PCP 25 ng/mL THC 20 ng/mL PERFORMED BY: [facility] [address] [place] [address] PATHOLOGIST [employer] RADHA MORLEY M.D. Performed By: #### A DDONUAPLUS, URDS, CUU, UHCG ####[place] [id number] [facility] Cocaine Screen,Urine Positive Normal Negative [facility] Comment on above: Performed By: #### A DDONUAPLUS, URDS, CUU, UHCG ####[place] [phone] [facility] Opiate Screen,Urine Negative Normal Negative [facility] Comment on above: Performed By: #### A DDONUAPLUS, URDS, CUU, UHCG ####[address] [address] [facility] Phencyclidine Screen,Urine Negative Normal Negative [facility] Comment on above: Performed By: #### A DDONUAPLUS, URDS, CUU, UHCG ####[address] [address] [facility] ECG 12 lead ECGon 12-07-2024 ECG 12 lead ECG [facility] [address] [place] [address] Electrocardiograph Report Signed Patient: Charles Baldwin MR#: [id number] : 1980 Acct:[id number] Age/Sex: 44 / F ADM Date: 12/07/24 Loc: 1S Room: [address] [place] [address] Type: ADM IN Attending Dr: Bahman Jones MD Ordering Provider: Ankit Parker DO Date of Service: 12/07/2410/26/820 ECG/ECG 12 lead ECG: Psychiatric Symptoms Copies to: Test Reason : Blood Pressure : */* mmHG Vent. Rate : 85 BPM Atrial Rate : 85 BPM P-R Int : 130 ms QRS Dur : 86 ms QT Int : 402 ms P-R-T Axes : 69 73 46 degrees QTcB Int : 478 ms Normal sinus rhythm with sinus arrhythmia Confirmed by Ankit PARKER DO ([id number]) on 12/07/2024 3:24:02 PM Referred By: Electronically Signed By: Ankit PARKER DO Transcribed By: MUS Signed By Ankit Parker DO 0 12/07/24 1524 Normal [facility] Eosinophils [#/volume] in Bl ood by Automated countOrdered By: Ankit Pakrer on 12-07-2024 Eosinophils (Bld) [#/Vol] 0.2 10*3/uL Normal 0.0-0.45 [facility] Comment on above: Performed By: #### E TAMMY, MG, CBC, CMP ####[facility] [id number] [place] [address] [place] Eosinophils/100 leukocytes i n Blood by Automated countOrdered By: Ankit Parker on 12-07-2024 Eosinophils/100 WBC (Bld) 1.6 % Normal . [facility] Comment on above: Performed By: #### E TAMMY, MG, CBC, CMP ####[facility] [id number] Epithelial cells.squamous [# /area] in Urine sediment by Automated countOrdered By: Ankit Parker on 12-07-2024 Epithelial cells.squamous Auto (Urine sed) [#/Area] 5-9 [HPF] High 0-2 [facility] Erythrocyte distribution wid th [Ratio] by Automated countOrdered By: Ankit Parker on 12-07-2024 Erythrocyte distribution width (RBC) [Ratio] 14.7 % Normal 11.9-15.3 [facility] Comment on above: Performed By: #### E TAMMY, MG, CBC, CMP ####[place] [id number] [facility] Erythrocytes [#/area] in Uri ne sediment by Automated countOrdered By: Ankit Parker on 12-07-2024 RBC Auto (Urine sed) [#/Area] 3-4 [HPF] 0-4 [facility] Erythrocytes [#/volume] in B lood by Automated countOrdered By: Ankit Parker on 12-07-2024 RBC (Bld) [#/Vol] 4.82 10*6/uL Normal 3.60-5.00 [facility] Comment on above: Performed By: #### E TAMMY MG, CBC, CMP ####[place] [id number] [facility] Ethanol [Mass/volume] in Ser um or PlasmaOrdered By: Ankit Parker on 12-07-2024 Ethanol [Mass/Vol] mg/dL Normal [facility] Comment on above: Performed By: #### E TAMMY MG, CBC, CMP ####[place] [id number] [facility] Ethyl Alcohol Profileon Percent Ethanol Not performed Normal [facility] Comment on above: Result Comment: PERF ORMED BY: [facility] [address] [place] [id number] PATHOLOGIST [employer] STRA[employer]ENER RADHA MORLEY M.D. Performed By: #### E TAMMY, MG, CBC, CMP ####[facility] [id number] [place], [place] [id number] [facility] Glucose [Mass/volume] in Ser um or PlasmaOrdered By: Ankit Parker on 12-07-2024 Glucose [Mass/Vol] 98 mg/dL Normal 70-100 [facility] Comment on above: ADA recommended refe rence rangeRandom Glucose Reference Range is dependent on time and content of last meal. Glucose of more than 200 mg/dL in a nonstressed, ambulatory subject supports the diagnosis of Diabetes Mellitus. Result Comment: [place] Glucose Reference Range is dependent on time and content of last meal. Glucose of more than 200 mg/dL in a nonstressed, ambulatory subject supports the diagnosis of Diabetes Mellitus. ADA recommended reference range Performed By: #### E TAMMY, MG, CBC, CMP ####[place] [id number] [place] [id number] [facility] Glucose [Mass/volume] in Uri ne by Test stripOrdered By: Ankit Parker on 12-07-2024 Glucose Test strip (U) [Mass/Vol] Normal mg/dL Normal [facility] HCG ( test) IA.rapi d Ql (U)Ordered By: Ankit Parker on 12-07-2024 HCG ( test) Ql (U) Negative [facility] HCG,Urineon 12-07-2024 Beta HCG ( test) Ql (U) Negative Normal [facility] Comment on above: Order Comment: Name Collection Type:: Clean-Voided Midstream Result Comment: PERF ORMED BY: [facility] [address] [place] [address] PATHOLOGIST [employer] RADHA MORLEY M.D. Performed By: #### A DDONUAPLUS, URDS, CUU, UHCG ####[place] [id number] [facility] Hematocrit [Volume Fraction] of Blood by Automated countOrdered By: Ankit Parker on 12-07-2024 Hematocrit (Bld) [Volume fraction] 43.0 % Normal 34.0-46.4 [facility] Comment on above: Performed By: #### E TAMMY, MG, CBC, CMP ####[place] [id number] [facility] Hemoglobin Test strip Ql (U) Ordered By: Ankit Parker on 12-07-2024 Hemoglobin Ql (U) 1+ High Negative [facility] Hemoglobin [Mass/volume] in BloodOrdered By: Ankit Parker on 12-07-2024 Hemoglobin (Bld) [Mass/Vol] 14.5 g/dL Normal 11.8-15.4 [facility] Comment on above: Performed By: #### E TAMMY, MG, CBC, CMP ####[address] Hyaline casts [#/area] in Ur ine sediment by Automated countOrdered By: Ankit Parker on 12-07-2024 Hyaline casts Auto (Urine sed) [#/Area] 0-8 [LPF] 0-8 [facility] Ketones [Presence] in Urine by Test stripOrdered By: Ankit Parker on 12-07-2024 Ketones Ql (U) 4+ Normal Negative [facility] Comment on above: Order Comment: Name Collection Type:: Clean-Voided Midstream Performed By: #### A DDONUAPLUS, URDS, CUU, UHCG ####[address] Leukocyte esterase [Presence ] in Urine by Test stripOrdered By: Ankit Parker on 12-07-2024 Leukocyte esterase Test strip Ql (U) 1+ Normal Negative [facility] Comment on above: Order Comment: Name Collection Type:: Clean-Voided Midstream Performed By: #### A DDONUAPLUS, URDS, CUU, UHCG ####[address] Leukocytes [#/area] in Urine sediment by Automated countOrdered By: Ankit Parker on 12-07-2024 WBC Auto (Urine sed) [#/Area] 5-9 [HPF] High 0-4 [facility] Leukocytes [#/volume] correc miriam for nucleated erythrocytes in Blood by Automated counOrdered By: Ankit Parker on 12-07-2024 WBC corrected for nucl RBC Auto (Bld) [#/Vol] 11.9 10*3/uL High 3.8-11.6 [facility] Leukocytes [#/volume] in Blo od by Automated countOrdered By: Ankit Parker on 12-07-2024 WBC (Bld) [#/Vol] 11.9 10*3/uL High 3.8-11.6 [facility] Comment on above: Performed By: #### E TAMMY, MG, CBC, CMP ####[place] [id number] [place] [phone] [facility] Lipid Panelon 12-07-2024 Cholesterol [Mass/Vol] 138 mg/dL Low 140-200 [facility] Comment on above: Result Comment: Chol less than 200 mg/dl low risk Chol 201-239 mg/dl borderline risk Chol 240 mg/dl and greater high risk Performed By: #### T SH3 wRFLX, [id number], LIPID ####[place] [id number] Cholesterol in HDL [Mass/Vol] 56 mg/dL Normal 23-92 [facility] Comment on above: Result Comment: HDL CHOL ATP-III CLASSIFICATION Cardiovascular Risk HDL > or equal to 60 mg/dL LOW HDL < 40 mg/dL HIGH Performed By: #### T SH3 wRFLX, [id number], LIPID ####[place] [id number] Cholesterol.total/Cho lesterol in HDL [Mass ratio] 2.5 {ratio} Normal <5.0 [facility] Comment on above: Performed By: #### T SH3 wRFLX, [id number], LIPID ####[place] [id number] [place] [id number] [facility] LDL Cholesterol,Calculate d 64 mg/dL Normal 0-100 [facility] Comment on above: Result Comment: LDL ATP III CLASSIFICATION LDL less than 100 mg/dL Optimal LDL 100-129 mg/dL Near or above optimal LDL 130-159 mg/dL Borderline high LDL 160-189 mg/dL High LDL greater than 189 mg/dL Very high Performed By: #### T SH3 wRFLX, [id number], LIPID ####[place] [id number] [facility] Triglyceride w/Reflex 92 mg/dL Normal 0-149 [facility] Comment on above: Result Comment: TRIG ATP III CLASSIFICATION TRIG less than 150 mg/dL Normal TRIG 150-199 mg/dL Borderline high TRIG 200-500 mg/dL High TRIG greater than 500 mg/dL Very high Standard traceable to the Center for Disease Conrtrol and Prevention (CDC) test method. Performed By: #### T SH3 wRFLX, [id number], LIPID ####[address] VLDL CHOLESTEROL 18 mg/dL Normal [facility] Comment on above: Performed By: #### T SH3 wRFLX, [id number], LIPID ####[address] Lymphocytes [#/volume] in Bl ood by Automated countOrdered By: Ankit Parker on 12-07-2024 Lymphocytes (Bld) [#/Vol] 2.7 10*3/uL Normal 1.00-4.8 [facility] Comment on above: Performed By: #### E MG TAMMY, CBC, CMP ####[address] Lymphocytes/100 leukocytes i n Blood by Automated countOrdered By: Ankit Parker on 12-07-2024 Lymphocytes/100 WBC (Bld) 22.4 % Normal . [facility] Comment on above: Performed By: #### E MG TAMMY, CBC, CMP ####[address] MCH [Entitic mass] by Automa miriam countOrdered By: Ankit Parker on 12-07-2024 MCH (RBC) [Entitic mass] 30.2 pg Normal 24.7-34.3 [facility] Comment on above: Performed By: #### E MG TAMMY, CBC, CMP ####[address] MCHC Auto (RBC) [Mass/Vol]Or dered By: Ankit Parker on 12-07-2024 MCHC (RBC) [Mass/Vol] 33.8 g/dL 32.0-35.0 [facility] MCV [Entitic volume] by Auto mated countOrdered By: Ankit Parker on 12-07-2024 MCV (RBC) [Entitic vol] 89.2 fL Normal 80-100 [facility] Comment on above: Performed By: #### E MG TAMMY, CBC, CMP ####[place] [id number] [facility] Magnesium [Mass/volume] in S manuela or PlasmaOrdered By: Ankit Parker on 12-07-2024 Magnesium [Mass/Vol] 1.8 mg/dL Low 1.9-2.7 [facility] Comment on above: Result Comment: PERF ORMED BY: [facility] [address] [place] [id number] PATHOLOGIST BARREL STRAIGHTENER RADHA MORLEY M.D. Performed By: #### E TAMMY, MG, CBC, CMP ####[address] Monocyte distribution width [Entitic volume] in Blood by AutomatedOrdered By: Ankit Parker on 12-07-2024 Monocyte distribution width Auto (Bld) [Entitic vol] 19.27 % 0.00-20.00 [facility] Monocytes [#/volume] in Bloo d by Automated countOrdered By: Ankit Parker on 12-07-2024 Monocytes (Bld) [#/Vol] 1.2 10*3/uL High 0.0-0.8 [facility] Comment on above: Performed By: #### E TAMMY, MG, CBC, CMP ####[address] Monocytes/100 leukocytes in Blood by Automated countOrdered By: Ankit Parker on 12-07-2024 Monocytes/100 WBC (Bld) 9.9 % Normal . [facility] Comment on above: Performed By: #### E TAMMY, MG, CBC, CMP ####[address] Mucus [Presence] in Urine by AutomatedOrdered By: Ankit Parker on 12-07-2024 Mucus Auto Ql (U) 4+ [LPF] Abnormal [facility] Neutrophils [#/volume] in Bl ood by Automated countOrdered By: Ankit Parker on 12-07-2024 Neutrophils (Bld) [#/Vol] 7.8 10*3/uL High 1.8-7.7 [facility] Comment on above: Performed By: #### E TAMMY, MG, CBC, CMP ####[facility] [id number] Neutrophils/100 leukocytes i n Blood by Automated countOrdered By: Ankit Parker on 12-07-2024 Neutrophils/100 WBC (Bld) 65.7 % Normal . [facility] Comment on above: Performed By: #### E TAMMY, MG, CBC, CMP ####[facility] [id number] [place] [id number] [facility] Nitrite Test strip Ql (U)Ord ered By: Ankit Parker on 12-07-2024 Nitrite Ql (U) Positive High Negative [facility] No Panel InformationOrdered By: Ankit Parker on 12-07-2024 Estimated GFR (CKD-EPI) > 60.0 mL/Min [facility]acy Creatinine Clearance (Chem 94.13 [facility] Nucleated erythrocytes [Pres ence] in Blood by Automated countOrdered By: Ankit Parker on 12-07-2024 Nucleated RBC Auto Ql (Bld) 0.0 /100{WBC} 0-0.5 [facility] Opiates [Presence] in Urine by Screen methodOrdered By: Ankit Parker on 12-07-2024 Opiates Screen Ql (U) Negative Negative [facility] Phencyclidine Screen Ql (U)O rdered By: Ankit Parker on 12-07-2024 Phencyclidine Ql (U) Negative Negative [facility] Platelet mean volume [Entiti c volume] in Blood by Automated countOrdered By: Ankit Parker on 12-07-2024 Platelet mean volume (Bld) [Entitic vol] 9.6 fL Normal 6.3-10.7 [facility] Comment on above: Performed By: #### E TAMMY, MG, CBC, CMP ####[facility] [id number] Platelets [#/volume] in Bloo d by Automated countOrdered By: Ankit Parker on 12-07-2024 Platelets (Bld) [#/Vol] 228 10*3/uL Normal 150-450 [facility] Comment on above: Performed By: #### E TAMMY, MG, CBC, CMP ####[place] [id number] [facility] Potassium [Moles/volume] in Serum or PlasmaOrdered By: Ankit Parker on 12-07-2024 Potassium [Moles/Vol] 2.9 mmol/L Off scale low 3.5-5.1 [facility] Comment on above: Critical Result Call ed to and read back by: SHIRA BROOKS at: 12/07/2024 09:46:11 by:OMAR Result Comment: Crit ical Result Called to and read back by: SHIRA BROOKS at: 12/07/2024 09:46:11 by:OMAR Performed By: #### E TAMMY, MG, CBC, CMP ####[place] [id number] [facility] Protein [Mass/volume] in Ser um or PlasmaOrdered By: Ankit Parker on 12-07-2024 Protein [Mass/Vol] 7.1 g/dL Normal 6.4-8.9 [facility] Comment on above: Performed By: #### E TAMMY, MG, CBC, CMP ####[place] [id number] [facility] Protein [Mass/volume] in Uri ne by Test stripOrdered By: Ankit Parker on 12-07-2024 Protein (U) [Mass/Vol] 50 mg/dL Normal Negative [facility] Comment on above: Order Comment: Name Collection Type:: Clean-Voided Midstream Performed By: #### A DDONUAPLUS, URDS, CUU, UHCG ####[place] [id number] [facility] Serum globulin measurement b y calculation (mass/volume)Ordered By: Ankit Parker on 12-07-2024 Globulin (S) [Mass/Vol] 2.7 g/dL Normal [facility] Comment on above: Performed By: #### E TAMMY, MG, CBC, CMP ####[place] [id number] [facility] Serum or plasma albumin/glob ulin mass ratioOrdered By: Ankit Parker on 12-07-2024 Albumin/Globulin [Mass ratio] 1.6 {ratio} Normal [facility] Comment on above: Performed By: #### E TAMMY MG, CBC, CMP ####[place] [id number] Serum or plasma anion gap de terminationOrdered By: Ankit Parker on 12-07-2024 Anion gap [Moles/Vol] 11.5 mmol/L Normal 6.0-15.0 [facility] Comment on above: Performed By: #### E TAMMY MG, CBC, CMP ####[address] Serum or plasma ethanol drea urement (mass/volume)Ordered By: Ankit Parker on 12-07-2024 Ethanol [Mass/Vol] TNP [facility] Comment on above: Test not performed Sodium [Moles/volume] in Ser um or PlasmaOrdered By: Ankit Parker on 12-07-2024 Sodium [Moles/Vol] 139 mmol/L Normal 136-145 [facility] Comment on above: Performed By: #### E TAMMY MG, CBC, CMP ####[address] Specific gravity Test strip (U) [Rel density]Ordered By: Ankit Parker on 12-07-2024 Specific gravity (U) [Rel density] 1.027 1.001-1.030 [facility] Thyroid Stim Hormone w/Rflxo n 12-07-2024 Thyroid Stim Hormone w/Rflx 0.69 u[iU]/mL Normal 0.45-5.33 [facility] Comment on above: Performed By: #### T SH3 wRFLX, [id number], LIPID ####[address] Urea nitrogen [Mass/volume] in Serum or PlasmaOrdered By: Ankit Parker on 12-07-2024 Urea nitrogen [Mass/Vol] 8 mg/dL Normal 7-25 [facility] Comment on above: Performed By: #### E TAMMY, MG, CBC, CMP ####[facility] [id number] [place] [address] [facility] Urine Cultureon 12-07-2024 Bacteria identified Cx Nom (U) MDRO results called at 0807 on 12/10/24 ORGANISM: Escherichia coli (MDRO) (O:ESCCOLMDRO) Apex Count >100,000 Aerobic PRISCILLA Charge (NMIC56) SUSCEPTIBILITY ORGANISM: O:ESCCOLMDRO ANTIBIOTIC INTERPRETATION PRISCILLA Amikacin S <16 Amoxacillin/K Clavulanate S <8 Ampicillin R >16 Ampicillin/Sulbactam R >16 Aztreonam S <4 Cefazolin S <2 Cefepime S <2 Ceftazidime S <1 Ceftazidime/Avibactam S <4 Ceftolozane/Tazobactam S <2 Ceftriaxone S <1 Cefuroxime S <4 Ciprofloxacin R >2 Ertapenem S <0.5 Gentamicin S <2 Levofloxacin R >4 Meropenem S <1 Meropenem/Vaborbactam S <2 Nitrofurantoin S <32 Piperacillin/Tazobactam S <8 Tetracycline R >8 Tigecycline S <2 Tobramycin S <2 Trimethoprim/Sulfamethoxaz ole R >2 S = SUSCEPTIBLE I = INTERMEDIATE R = RESISTANT BLANK = DATA NOT AVAILABLE, OR DRUG NOT ADVISABLE OR TESTED R* = RESISTANCE DUE TO EXTENDED SPECTRUM BETA-LACTAMASES ESBL = EXTENDED SPECTRUM BETA-LACTAMASE TFG = THYMIDINE-DEPENDENT STRAIN DAYRON = BETA-LACTAMASE POSITIVE IB = INDUCIBLE BETA-LACTAMASE. APPEARS IN PLACE OF 'S' WITH SPECIES KNOWN TO POSSESS INDUCIBLE BETA-LACTAMASES. POTENTIALLY THEY MAY BECOME RESISTANT TO ALL B-LACTAM DRUGS. PERFORMED BY: [facility] [address] [place] [address] PATHOLOGIST BARREL STRAIGHTENER RADHA MORLEY M.D. Normal [facility] Comment on above: Performed By: #### A MARIAH, BOOMDS, CUU, UHCG ####[facility] [address] [place] [id number] [facility] Urobilinogen Test strip (U) [Mass/Vol]Ordered By: Ankit Parker on 12-07-2024 Urobilinogen (U) [Mass/Vol] 6 mg/dL High Normal [facility] Vitamin D 25 Hydroxy Totalon 12-07-2024 Vitamin D 25 Hydroxy Total 72.5 ng/mL Normal 30-100 [facility] Comment on above: Result Comment: CURT MIN D STATUS 25(OH)VITAMIN D RANGE (ng/mL) Deficient <20 Insufficient 20 to <30 Sufficient 30 to 100 Reference: Rohit MF,Tanner NC, Néstor AMEZQUITA, et al. Evaluation,treatment, and prevention of vitamin D deficiency; an Endocrine Society clinical practice guideline. JCEM. 2010; 96(7):1911-30. PERFORMED BY: [facility] [address] [place] [id number] PATHOLOGIST BARREL STRAIGHTENER RADHA MORLEY M.D. Performed By: #### T SH3 wRFLX, [id number], LIPID ####[place] [id number] [place] [id number] [facility] pH of Urine by Test stripOrd ered By: Ankit Parker on 12-07-2024 pH (U) 7.0 [pH] Normal 5.0-9.0 [facility] Comment on above: Order Comment: Name Collection Type:: Clean-Voided Midstream Performed By: #### A DDONUAPLUS, URDS, CUU, UHCG ####[place] [id number] [place] [id number] [facility] Coding Queryon 12-10-2023 Coding Query Coding Query small less than 3 cm hernia Normal [facility] Ambulatory Visit Summaryon 0 12-07-2023 Ambulatory Visit Summary Ambulatory Visit Summary CABRERACHARLES :1980 Visit Date:12/07/2023 Ambulatory Visit Instructions Your Diagnosis Ruptured sebaceous cyst History of MRSA infection BMI 22.0-22.9, adult Smoker Your Care Team Attending Physician - Abisai Wang DO Primary Care Physician - AIMEE ADAIR CNP This Is Your Medications List acetaminophen (Tylenol) albuterol (Proventil HFA 90 mcg/inh Aerosol) cyclobenzaprine (cyclobenzaprine 10 mg Tab) ibuprofen (ibuprofen 600 mg Tab) ibuprofen (ibuprofen 800 mg Tab) metoprolol (metoprolol succinate 25 mg ER Tab) Procedures Performed Hysterectomy (11/13/2023), Colonoscopy (06/20/2019), Excision of lymph node (07/2015), cervical cryosurgery (2003), essure procedure, extraction of wisdom teeth, Left inguinal hernia, Tubal ligation. Discharge Vitals Temperature (Temporal Artery) 36.1 ?C Heart Rate (Peripheral) 77 Blood Pressure 122/80 Height 168 cm Height 66 in Weight 62.4 kg Weight 137.28 lb BMI 22.11 Medications What How Much When Instructions Unchanged acetaminophen (Tylenol) 650 Milligram By Mouth Every 6 hours as needed for as needed for pain Unchanged albuterol (Proventil HFA 90 mcg/ inh Aerosol) 2 Puffs Inhalation 4 times a day Unchanged cyclobenzaprine (cyclobenzaprine 10 mg Tab) 1 Tablets By Mouth 3 times a day as needed for for spasm Unchanged ibuprofen (ibuprofen 600 mg Tab) 1 Tablets By Mouth Every 6 hours Unchanged ibuprofen (ibuprofen 800 mg Tab) 1 Tablets By Mouth 3 times a day as needed for as needed for pain Unchanged metoprolol (metoprolol succinate 25 mg ER Tab) 1 Tablets By Mouth Every day Allergies HYDROcodone (Vomiting) Nubain (Vomiting) Problems Ongoing - Any problem that you are currently receiving treatment for. Asymptomatic microscopic hematuria Chest pain Essential hypertension Genuine stress incontinence History of MRSA infection Inguinal lymphadenopathy Kidney stone Mastodynia of right breast Methicillin resistant Staphylococcus aureus Microscopic hematuria Ovarian cyst Ruptured sebaceous cyst Smoker Stress incontinence Historical - Any problem that you are no longer receiving treatment for. Chronic hepatitis C ENDOMETRIOSIS Hepatitis C Hypertension Inguinal hernia Migraine Squamous cell carcinoma of cervix Patient Survey You may receive a survey via text or e-mail asking about your office visit. Please share your experience with us by completing your survey. We appreciate your feedback and thank you for choosing us for your care. [facility] Family Medicine Office/Clini c Noteon 12-07-2023 Family Medicine Office/Clinic Note Family Medicine Office/Clinic Note Chief Complaint rt side facial pain and swelling HPI Staff complaints of facial swelling Onset: pt states for one year shes had lump in rt side of cheek. Characteristics: Pt tried to pop lump in cheek last night and woke up with pain and swelling. OTC tried: none History of Present Illness HPI staff confirmed PCP - Aimee at [facility] across from [facility] had a cm round mass in her right cheek for over a year she'll occasionally squeeze to see if anything comes out there's never been a white head or black head no obvious signs of infection no pain until today was aggressive with squeezing it last night and woke up with significant swelling there Review of Systems PHQ Score Initial Depression Screen Score: 0 SCORE Physical Exam Vitals & Measurements T: 36.1 ?C(Temporal Artery) HR: 77(Peripheral) BP: 122/80 SpO2: 98% HT: 66 in HT: 168 cm WT: 62.4 kg WT: 137.28 lb BMI: 22.11 Constitutional: Vital signs reviewed; CHARLES BALDWIN is well nourished, no acute distress - Head: Atraumatic, normocephalic Lungs: Clear to auscultation, non-labored respiration - expansion is symmetric Heart: Normal rate and rhythm, normal peripheral perfusion Lymph: Deferred Abd: Deferred : Deferred MSK: Normal gait and station Skin: Warm, dry, right cheek: 2cm round cystic structure with surrounding induration - no erythema exam from within the cheek reveals normal mucosa Neurologic: Awake, alert and oriented, speech is normal, no focal deficits, CN II-XII grossly intact Psychiatric: Cooperative, appropriate mood and affect, judgement is appropriate Assessment/Plan 1. Ruptured sebaceous cyst (L72.0: Epidermal cyst) acute new to me I didn't see this before today however, it seems like she's describing a sebaceous cyst not clear if there's infection today however, given the amount of swelling since yesterday, will rx doxycycline to cover for MRSA I recommend that she avoid squeezing this in the future referral to ENT if this swelling persists, they may want to perform a biopsy F/u with PCP Ordered: doxycycline, 100 mg = 1 cap(s), Oral, BID, # 20 cap(s), Refills(s) 0, Pharmacy: [facility], 168, cm, 12/07/23 17:42:00 EDT, Height/Length Dosing, 62.4, kg, 12/07/23 17:42:00 EDT, Weight Dosing [facility] External Ambulatory Referral 2. History of MRSA infection (Z86.14: Personal history of Methicillin resistant Staphylococcus aureus infection) noted as it relates to above Ordered: doxycycline, 100 mg = 1 cap(s), Oral, BID, # 20 cap(s), Refills(s) 0, Pharmacy: [facility], 168, cm, 12/07/23 17:42:00 EDT, Height/Length Dosing, 62.4, kg, 12/07/23 17:42:00 EDT, Weight Dosing [facility] External Ambulatory Referral 3. BMI 22.0-22.9, adult (Z68.22: Body mass index [BMI] 22.0-22.9, adult) 4. Smoker (F17.200: Nicotine dependence, unspecified, uncomplicated) Follow-up No qualifying data available Problem List/Past Medical History Ongoing Asymptomatic microscopic hematuria Chest pain Essential hypertension Genuine stress incontinence History of MRSA infection Inguinal lymphadenopathy Kidney stone Mastodynia of right breast Methicillin resistant Staphylococcus aureus Microscopic hematuria Ovarian cyst Ruptured sebaceous cyst Smoker Stress incontinence Historical Chronic hepatitis C ENDOMETRIOSIS Hepatitis C Hypertension Inguinal hernia Migraine Squamous cell carcinoma of cervix Procedure/Surgical History Hysterectomy (11/13/2023), Colonoscopy (06/20/2019), Excision of lymph node (07/2015), cervical cryosurgery (2003), essure procedure, extraction of wisdom teeth, Left inguinal hernia, Tubal ligation. Medications cyclobenzaprine 10 mg Tab, 10 mg= 1 tab(s), Oral, TID, PRN doxycycline hyclate 100 mg Cap, 100 mg= 1 cap(s), Oral, BID ibuprofen 600 mg Tab, 600 mg= 1 tab(s), Oral, q6hr ibuprofen 800 mg Tab, 800 mg= 1 tab(s), Oral, TID, PRN metoprolol succinate 25 mg ER Tab, 25 mg= 1 tab(s), Oral, Daily Proventil HFA 90 mcg/inh Aerosol, 2 puff(s), Inhalation, QID Tylenol, 650 mg, Oral, q6hr, PRN Allergies HYDROcodone (Vomiting) Nubain (Vomiting) Social History Alcohol - Denies Alcohol Use, 01/19/2018 Current, Liquor, 11/15/2017 Substance Abuse - Denies Substance Abuse, 03/28/2019 Current, Amphetamines, Cocaine, Heroin, Marijuana, Several times per day, Previous treatment: Inpatient. IV drug use: Yes. Drug use interferes with work/home: Yes. Ready to change: Yes. Household substance abuse concerns: Yes., 07/24/2018 Past, Prescription medications, IV drug use: No. Drug use interferes with work/home: No. Ready to change: Yes. Household substance abuse concerns: No., 07/26/2015 Tobacco - High Risk, 01/19/2018 10 or more cigarettes (1/2 pack or more)/day in last 30 days Tobacco Use:., 12/07/2023 Former smoker, quit more than 30 days ago Tobacco Use:. Never Smokeless Tobacco Use:., 10/27/2022 10 (more content not included)... Normal [facility] Comment on above: Result Comment: Elec tronically Signed By: Abisai Wang DO.addy\Date and Time Signed: 12/07/23 18:23 EDT Coding Queryon 11-19-2023 Coding Query Coding Query From: Marta Montaño To: Nelli COOK, Jame Mcrea; Cc: Sinai Day; Sent: 11/17/2023 16:09:31 EDT ! Subject: Coding Query Dr Aiken, Please document the size of the umbilical hernia that was repaired. Was it-- -Less than 3 cm -3 cm to 10 cm, or -Greater than 10 cm Thank you, Amber HIM Coding The size of the umbilical hernia was less than 3cm Normal [facility] Surgical Pathology Reporton 11-17-20[address] [facility] [address] [place] [address]- Surgical Pathology Report Collected Date/Time: 11/13/2023 10:10 EDT Pathologist: Estuardo Randhawa MD Received Date/Time: 11/13/2023 11:32 EDT Nelli COOK, Jame Aiken MD, Jame Fried Surgical Pathology Report - 11/17/2023 14:55 EDT - Auth (Verified) Final Diagnosis A: LEFT OVARY, BIOPSY: - Minute fragments of cellular ovarian tissue with hemosiderin deposits. - No evidence of endometriosis identified. B: UTERUS WITH CERVIX, BILATERAL FALLOPIAN TUBES, TOTAL HYSTERECTOMY AND BILATERAL SALPINGECTOMY: - Ectocervix with no significant Histopathology. - Endocervix with focal squamous metaplasia. - Late secretory phase endometrium. - Focal adenomyosis. - Unremarkable bilateral fallopian tube with paratubal cysts. - No evidence of hyperplasia, dysplasia or malignancy identified. (Electronic Signature) Yan. Sydnee MD 11/17/2023 14:55 Clinical Information Menorrhagia, dysmenorrhea, dyspareunia Pre-Op Diagnosis: Menorrhagia, dysmenorrhea, dyspareunia Procedure: Robotic hysterectomy, bilateral salpingectomy Specimen(s) Received A: Left ovarian biopsy, hemosiderin deposit vs endometriosis B: Uterus, cervix, right and left fallopian tubes Gross Description A: Received in formalin labeled with patient name, number, and left ovarian biopsy, hemosiderin deposit versus endometriosis, is a single fragment of torrez tissue measuring 0.2 x 0.2 x 0.1 cm. Specimen is entirely submitted in one cassette. B: Received in formalin labeled with patient name, number, and cervix, right and left fallopian tubes is a symmetric hysterectomy specimen with fallopian tubes. The uterus is 7.9 x 4.9 x 3.5 cm and weighs 91 g without fallopian tubes. The serosal surface is torrez/pink, smooth, and unremarkable. The cervix is 3.4 cm long with a torrez/pink ectocervix measuring up to 3.4 cm in diameter. Cross-sectioning through the cervix reveals a granular cervical canal, otherwise unremarkable. The endometrial cavity is symmetric measuring 4 x 2.2 cm. The endometrium is torrez/red/pink, slightly thickened, measuring up to 0.9 cm in thickness. Cross-sectioning through the myometrium reveals no mass lesion. The assumed right fallopian tube with the attached fimbriated end, overall measures 5.4 cm long and up to 0.7 cm in diameter. A paratubal cyst measuring up to 0.5 cm is present and contains a white milky fluid. Cross-sectioning through the lumen reveals a pinpoint lumen and a silver thin coil of wire. The assumed left fallopian tube with the attached fimbriated end overall measures 5.6 cm long and up to 0.7 cm in diameter. A paratubal cyst measuring up to 0.2 cm is present. Cross-sectioning through the fallopian tube reveals a pinpoint lumen and a thin silver coiled wire. Dental Mechanic portion is submitted in a total of 14 cassettes: 1-7: Entire cervix 8-12: Myometrium and endometrium 13-14: Sections of the bilateral fallopian tubes and fimbriated ends (DC) DC:[facility] Surgical Pathology Report Collected Date/Time: 11/13/2023 10:10 EDT Pathologist: Estuardo Randhawa MD Received Date/Time: 11/13/2023 11:32 EDT Jame Aiken MD, MD, James D Microscopic Description Microscopic examination performed unless gross only specified. Normal [facility] Comment on above: Performed By: #### [id number] #### [facility] Laboratory [address] [place] [address] Main OR Intraoperative Recor don 11-16-2023 Main OR Intraoperative Record Main OR Intraoperative Record IntraOp Document Type FT Summary Primary Physician: Jame Aiken MD Finalized Date/Time: 11/16/23 09:51:32 Pt. Name: CHARLES BALDWIN./Sex: 1980 Female Med Rec #: [id number] Physician: Jame Aiken MD Financial #: [id number] Pt. Type: A Room/Bed: [place] [address] Admit/Disch: 11/13/23 07:10:58 - 11/13/23 14:00:00 Institution: Case Times FT Entry 1 Patient Times In Room 11/13/23 09:18:00 Out Room 11/13/23 11:04:00 Procedure Times Start 11/13/23 09:41:00 Stop 11/13/23 10:55:00 Anesthesia Times Start 11/13/23 09:18:00 Stop 11/13/23 11:04:00 Last Modified By: Bakari CHILEL, Molly Espinosa 11/13/23 11:04:53 General Comments: ROBOT DOCKED AT 1001, UNDOCKED AT 1038 , SURGEON AT CONSOLE [id number] -V. RANJANA HINES 11/16/23 Chart opened to review and send charges [facility]FA Case Attendance FT Entry 1 Entry 2 Entry 3 Case Attendee Gustavo THOMPSON, ALESIA, Queen Nelli COOK, Jame Acosta HEALTH AND HUMAN PERFORMANCE PROFESSOR, Timothy Galan Role Performed KNITTING TEACHER Surgeon - Primary HEALTH AND HUMAN PERFORMANCE PROFESSOR/SA Time In 11/13/23 09:18:00 11/13/23 09:18:00 11/13/23 09:18:00 Time Out 11/13/23 11:04:00 11/13/23 10:48:00 11/13/23 11:04:00 Procedure HYSTERECTOMY, ROBOT HYSTERECTOMY, ROBOT HYSTERECTOMY, ROBOT ASSISTED(.) ASSISTED(.) ASSISTED(.) Comments dr. an supervising, out for break at [phone] Last Modified By: Bakari RN, Molly Hines RN, Molly Hines RN, Molly Gonzalez P 11/13/23 Lisa P 11/13/23 Lisa P 11/13/23 11:04:54 11:04:54 11:04:54 Entry 4 Entry 5 Entry 6 Case Attendee Bakari CHILEL, Molly Prince LPN, Nancy Dalton HEALTH AND HUMAN PERFORMANCE PROFESSOR, Sasha Espinosa Role Performed Clay Dry Press Operator - Primary Scrub - Primary Staff - Other Time In 11/13/23 09:18:00 11/13/23 09:18:00 11/13/23 09:18:00 Time Out 11/13/23 11:04:00 11/13/23 11:04:00 11/13/23 11:04:00 Procedure HYSTERECTOMY, ROBOT HYSTERECTOMY, ROBOT HYSTERECTOMY, ROBOT ASSISTED(.) ASSISTED(.) ASSISTED(.) Comments uterine manipulator Last Modified By: Bakari CHILEL, Molly Hines RN, Molly Hines RN, Molly Gonzalez P 11/13/23 Lisa P 11/13/23 Lisa P 11/13/23 11:04:54 11:04:54 11:04:54 Entry 7 Case Attendee Carlos Alberto Pleitez Role Performed Anesthesiologist Strategic Procurement Manager Time In 11/13/23 10:03:00 Time Out 11/13/23 10:32:00 Procedure HYSTERECTOMY, ROBOT ASSISTED(.) Comments DR. AN SUPERVISING, BREAK RELIEF Last Modified By: Bakari CHILEL, Molly Espinosa 11/13/23 11:04:54 Perioperative Protocols FT Pre-Care Text: Implements protective measures prior to operative or invasive procedure, confirms identity before the operative or invasive procedure, verifies operative procedure, surgical site, and laterality Entry 1 Procedure(s) HYSTERECTOMY, ROBOT Patient Identity Birthday, Blood Band, ASSISTED(.) Verified (select at ID Band Check, Patient least 2): Participation Consents / H and P Anesthesia Consent, Operative Site N/A Verified HandP, Surgery/Procedure Marking Verified Consent, Transfusion Consent Surgical Site Yes Laterality Verified Yes Verified Procedure Verified Yes Correct Patient Yes Position Verified Availability Equipment, Medication Prep Dry Yes Verified (If Applicable) PreOp Antibiotic Yes Time Out Jame Aiken MD, Given Participants Gustavo DNP, KNITTING TEACHER, Dean N., Dave PENNINGTON, Bakari Aguirre RN, Molly Espinosa, Suresh CLINEN, Sha Vang CST, Sasha Graham Time Out Complete 11/13/23 09:41:00 Outcomes Met? Yes Last Modified By: Molly Hines RN 11/13/23 09:57:08 Post-Care Text: The patient is free from signs and symptoms of injury caused by extraneous objects Allergy Information FT Pre-Care Text: Verifies allergies Entry 1 Allergies Reviewed? Yes Allergies Reviewed Self/Patient With Outcomes Met? Yes Last Modified By: Molly Hines RN 11/13/23 09:57:13 Post-Care Text: The patient received appropriate medication(s) safely administered during the perioperative period Surgical Procedures FT Entry 1 Procedure Description Procedure HYSTERECTOMY, ROBOT Modifiers . ASSISTED Surgeon Description ROBOTIC HYSTERECTOMY, BILATERAL SALPINGECTOMY, UMBILICAL HERNIA REPAIR Primary Procedure Yes Primary Surgeon Jame Aiken MD Start 11/13/23 09:41:00 Stop 11/13/23 10:55:00 Anesthesia Type General Surgical Service Obstetric Gynecology Wound Class 2 - Clean-Contaminated Last Modified By: Molly Hines RN 11/13/23 12:33:06 General Case Data FT Pre-Care Text: Classifies surgical wound, implements aseptic technique, initiates traffic control Entry 1 Case Information OR OR 6 FT Case Level Level 5 Wound Class 2 - Clean-Contaminated Specialty Obstetric Gynecology ASA Class 2 Preop Diagnosis MENORRHAGIA, Postop Same As Preop Yes DYSMENORRHIA, DYSPAREUNIA Postop Diagnosis MENORRHAGIA, Outcomes Met? Yes DYSMENORRHIA, DYSPAREUNIA Last Modified By: Bindu Drake CST 11/16/23 09:50:50 P (more content not included)... Normal [facility] Operative Reporton Operative Report Operative Report SURGERY DATE: 11/13/2023 PREOPERATIVE DIAGNOSES: 1. Menorrhagia, dysmenorrhea, and dyspareunia 2. History of Essure coils 3. Heavy tobacco smoker 4. Small umbilical hernia POSTOPERATIVE DIAGNOSES: 1. Menorrhagia, dysmenorrhea, and dyspareunia 2. History of Essure coils 3. Heavy tobacco smoker 4. Small umbilical hernia 5. Omental adhesions throughout the lower abdomen 6. Possible endometriosis OPERATION: 1. Robotic hysterectomy and bilateral salpingectomy 2. Umbilical hernia repair 3. Lysis of adhesions 4. Left ovarian biopsy ANESTHESIA: General ANESTHESIOLOGIST: Queen Adama Chen CRNA BRIEF HISTORY: The patient is a patient who presented from the nurse practitioner complaining of heavy, clotty, painful periods as well as painful intercourse. She had a history of Essure coils. She had a hysteroscopy and endometrial biopsy which revealed a secretory endometrium. She had some difficulty with her small umbilical hernia. With her menorrhagia and dysmenorrhea, she desired definitive surgical management. We discussed with her pain the potential for endometriosis. We discussed the risks involved including bleeding, infection, injury to internal organs, possibility of continued pain, all of which she understood and accepted and appropriately signed consent forms. PROCEDURE: The patient was taken to the Operative Suite, and after general anesthesia was administered the patient was draped and prepped in the usual fashion for abdominal surgery. The [employer] uterine manipulator was placed in the usual fashion, and attention was turned to the abdominal approach. A sharp knife was used to make a scoring incision underneath the umbilicus which allowed for the Veress needle to be placed into the peritoneal cavity. The peritoneal cavity was insufflated with 2.5 liters of carbon dioxide and the laparoscopic sheaths introduced into the peritoneal cavity. Secondary and tertiary probes were placed under direct visualization as well as an political science research assistant port. She was found to have omental adhesions with filmy adhesions to the abdominal area and umbilical area, and these were systematically taken down using the Bovie. Hemostasis was assured. The robot was then docked in the usual fashion, and attention was turned to the pelvic organs. The left ovary had a small spot of endometriosis versus hemosiderin deposit which was biopsied and removed. Hemostasis was assured. The rest of the ovary appeared normal as well as the opposite ovary appeared normal. The left fallopian tube was followed out to its fimbriated end. A series of vessel sealer ligatures and incisions was used to incorporate the left fallopian tube with the surgical specimen. The ovarian ligament was then ligated and incised using the vessel sealer. A series of ligations and incisions was carried down the mesosalpinx to the level of the round ligament. The round ligament was then ligated and incised using the vessel sealer. A series of ligations and incisions was carried down the lateral aspect of the uterus. This allowed for a bladder flap to be created and the bladder to be reflected off the lower uterine segment. The uterine vessels on the left were then skeletonized. The uterine vessels on the left were then ligated and incised using the vessel sealer. A series of ligations and incisions was used to reflect the uterine vessels off the lower uterine segment. Hemostasis was assured and attention was turned to the opposite side. The right fallopian tube was dissected away from the mesosalpinx using a series of ligations and incisions with the vessel sealer. A series of ligations and incisions was carried down the mesosalpinx to the level of the round ligament. The ligament was then ligated and incised using the vessel sealer. It was noted that the suspensory ligament to the ovary was also ligated and incised using the vessel sealer. A series of ligations and incisions was used down the lateral aspect of the uterus on the right. This allowed for the bladder flap to be completed and the uterine vessels on the right to be skeletonized. The uterine vessels were then ligated and incised using the vessel sealer. A series of ligations and incisions was used to reflect the uterine vessels off the lower uterine segment. Hemostasis was assured. The Endo Shakeel were then used to create the vaginal cuff, and the vaginal cuff was made hemostatic using the vessel sealer. A series of plain locking stitch of 2-0 V-Loc suture was used to close the vaginal cuff and incorporate the uterosacral ligaments on the left and on the right using separate sutures. Hemostasis was assured. Copious amounts of irrigation were used, and attention was turned to the umbilicus. The carbon dioxide was allowed to escape from the peritoneal cavity. The laparoscopic sheaths were removed from the peritoneal cavity. The fascia was identified and grasped using Ger clamps. An 0 Vicryl suture was then used to close the fascia, and a series of [id number] sutu (more content not included)... Normal [facility] Comment on above: Result Comment: Elec tronically Signed By: Nelli COOK, Jame Mcrae\.br\Date and Time Signed: 11/14/23 09:43 EDT ABO/Rhon 11-13-2023 ABO/Rh Positive Invalid Interpretation Code [facility] Comment on above: Performed By: #### 2 [id number] #### [facility] [address] [place] [address] ABO/Rh History Checkon 11-12 ABO/Rh History Check Verified Hx Blood Type Normal [facility] Comment on above: Performed By: #### 1 [id number] #### [facility] [address] [place] [address] ABSCon 11-13-2023 ABSC Gel Interp Negative Normal [facility] Comment on above: Performed By: #### 1 [id number] #### [facility] [address] [place] [address] BLOOD BANKOrdered By: Corrina sumner on 11-13-2023 ABO/Rh Interp Positive Invalid Interpretation Code [facility] BB Subsection ABSC Gel Interp Negative (11/13/23 8:30 AM) Normal [facility] BB Subsection Blood Bank ID#on 11-13-2023 BBID# [id number] Invalid Interpretation Code [facility] Comment on above: Performed By: #### 1 [id number] #### [facility] [address] [place] [address] Discharge Instructionson Discharge Instructions Discharge Instructions CABRERACHARLES :1980 Visit Date:11/13/2023 Inpatient Discharge Instructions Your Care Team Admitting Physician - Jame Aiken MD Referring Physician - Jame Aiken MD Reason for Your Visit MENORRHAGIA, DYSMENORRHIA, DYSPAREUNIA Your Diagnosis Dysmenorrhea Dyspareunia Hernia, umbilical Menorrhagia S/P total hysterectomy Smoker Status post bilateral salpingectomy Tests Performed Pathology Tissue Exam -- Results Pending -- Please visit your patient portal for your results or contact your primary care physician. This Is Your Medications List acetaminophen (Tylenol) albuterol (Proventil HFA 90 mcg/inh Aerosol) amoxicillin-clavulanate (amoxicillin-clavulanate 875 mg-125 mg Tab) cyclobenzaprine (cyclobenzaprine 10 mg Tab) ibuprofen (ibuprofen 600 mg Tab) ibuprofen (ibuprofen 800 mg Tab) metoprolol (metoprolol succinate 25 mg ER Tab) Procedure History Colonoscopy (06/20/2019), Excision of lymph node (07/2015), cervical cryosurgery (2003), essure procedure, extraction of wisdom teeth, Left inguinal hernia, Tubal ligation. What to do next Instructions From Your Doctor Event Name Event Result Discharge Activity Expect mild pain, Expect minimal amount of drainage and/or bleeding, Activity as tolerated Discharge Diet(s) Regular Call Your Doctor For Persistent or heavy bleeding, Temperature above 101.5 degrees, Persistent vomiting Wound Care Keep incision dry Discharge Instructions Discharge Instructions New Follow Up Appointments after Discharge Follow Up with Jame Aiken When: Within 6 weeks Where: [address] [place] [address]- Business (1) Follow Up with Jame Aiken When: Within 2 weeks Where: [address] [place] [address]- Business (1) Medications What How Much When Instructions Next Dose Changed ibuprofen (ibuprofen 600 mg Tab) 1 Tablets By Mouth Every 6 hours Pickup at [facility] Changed ibuprofen (ibuprofen 800 mg Tab) 1 Tablets By Mouth 3 times a day as needed for as needed for pain Unchanged acetaminophen (Tylenol) 650 Milligram By Mouth Every 6 hours as needed for as needed for pain Unchanged albuterol (Proventil HFA 90 mcg/ inh Aerosol) 2 Puffs Inhalation 4 times a day Unchanged amoxicillin-clavulanate (amoxicillin-clavulanate 875 mg-125 mg Tab) 1 Tablets By Mouth Every 12 hours Duration: 10 Days Unchanged cyclobenzaprine (cyclobenzaprine 10 mg Tab) 1 Tablets By Mouth 3 times a day as needed for for spasm Unchanged metoprolol (metoprolol succinate 25 mg ER Tab) 1 Tablets By Mouth Every day Pharmacy Information [facility]: [address] [place], [place] [id number] [phone] Test Results No qualifying data available. Allergies HYDROcodone (Vomiting) Nubain (Vomiting) Problems Ongoing - Any problem that you are currently receiving treatment for. Asymptomatic microscopic hematuria Asymptomatic microscopic hematuria Chest pain Essential hypertension Genuine stress incontinence Inguinal lymphadenopathy Kidney stone Kidney stone Mastodynia of right breast Methicillin resistant Staphylococcus aureus Microscopic hematuria mrsa Ovarian cyst Smoker Smoker Stress incontinence Historical - Any problem that you are no longer receiving treatment for. Chronic hepatitis C ENDOMETRIOSIS Hepatitis C Hypertension Inguinal hernia Migraine Squamous cell carcinoma of cervix Education Materials Instructions post hysterectomy/laparotomy/ma dony surgery It is recommended that you rest at home on the day of discharge, and get to bed early so you get a good night?s rest. Gradually increase your activity daily ? for example: no lifting anything heavier than ten pounds the first week, twenty pounds the second week, and thirty pounds the third week. NO: intercourse, douches, and tampons for the next 6 weeks. You can expect some vaginal spotting, cramps or light bleeding after surgery. This is normal. Each day should get better and better. If you are soaking a pad an hour or more frequently ? you need to call your doctor. You can ride in a car; Drive when it is not painful. If it is painful, don?t do it. Stitches will dissolve with time and do not need to be removed. The band aids can be removed tomorrow. Leave the steri strips on. They may fall off and that is o.k. You may place band aids over the steri strips if there is drainage. You can shower with the incisions the day after surgery. Try to keep the steri strips as dry as possible. No tub baths, swimming, or soaking in water until after your two week follow up appointment. Return to the office for postoperative check, and to go over any biopsy results at your scheduled appointment; usually two weeks following your surgery; and then at six weeks af (more content not included)... Normal [facility] Comment on above: Result Comment: Elec tronically Signed By: Ruy CHILEL, Magda Bradshaw\.br\Date and Time Signed: 11/13/23 11:31 EDT Main OR PACU I Recordon 11-01 Main OR PACU I Record Main OR PACU I Rec ord PACU Phase I Document Type FT Summary Primary Physician: Jame Aiken MD Finalized Date/Time: 11/13/23 13:17:45 Pt. Name: CHARLES BALDWIN Idalia Roberts/Sex: 1980 Female Med Rec #: [id number] Physician: Jame Aikne MD Financial #: [id number] Pt. Type: A Room/Bed: [facility] Admit/Disch: 11/13/23 07:10:58 - Institution: Case Times PACU I FT Pre-Care Text: Identifies barriers to communication and implements measures to provide psychological support Develops individualized plan of care, and ensures continuity of care Maintains patient's dignity and privacy, and maintains patient confidentiality Identifies and reports philosophical, cultural, and spiritual beliefs and values Identifies individual values and wishes concerning care Implements aseptic technique, and administers prescribed antibiotic therapy and immunizing agents as ordered Evaluates postoperative tissue perfusion Implements thermoregulation measures, and monitors body temperature Evaluates postoperative respiratory status Evaluates postoperative cardiac status Evaluates postoperative neurological status Assesses pain control, collaborated in initiating patient-controlled analgesia and implements alternative methods of pain control Verifies allergies, administers prescribed medications and solutions, evaluates response to medications Entry 1 In PACU I 11/13/23 11:06:00 Discharge from PACU 11/13/23 12:07:00 I Outcomes Met? Yes Last Modified By: Estela Teixeira RN 11/13/23 13:17:27 Post-Care Text: The patient demonstrates knowledge of the expected response to the operative or invasive procedure The patient's care is consistent with the individualized perioperative plan of care The patient's right to privacy is maintained The patient's value system, lifestyle, ethnicity, and culture are considered, respected, and incorporated into the perioperative plan of care The patient participates in decisions affecting his or her perioperative plan of care The patient is free from signs and symptoms of infection The patient has wound/tissue perfusion consistent with or improved from baseline levels established preoperatively The patient is at or returning to normothermia at the conclusion of the immediate postoperative period The patient's respiratory function is consistent with or improved from baseline levels established preoperatively The patient's cardiovascular status is consistent with or improved from baseline levels established preoperatively The patient's cardiovascular status is consistent with or improved from baseline levels established preoperatively The patient demonstrates and/or reports adequate pain control throughout the perioperative period The patient received appropriate medication(s), safely administered during the perioperative period Acuity Level PACU I FT Entry 1 Start Time 11/13/23 11:06:00 Stop Time 11/13/23 12:07:00 Acuity Level Acuity Level I Last Modified By: Estela Teixeira RN 11/13/23 13:17:40 Finalized By: Estela Teixeira RN Document Signatures Signed By: Estela Teixeira RN 11/13/23 13:17 Normal [facility] Main OR PACU II Recordon Main OR PACU II Record Main OR PACU II Record PACU Phase II Document Type FT Summary Primary Physician: Jame Aiken MD Finalized Date/Time: 11/13/23 14:11:02 Pt. Name: CHARLES BALDWIN./Sex: 1980 Female Med Rec #: [id number] Physician: Jame Aiken MD Financial #: [id number] Pt. Type: A Room/Bed: [place] [address] Admit/Disch: 11/13/23 07:10:58 - Institution: Case Times PACU II FT Pre-Care Text: Identifies barriers to communication and implements measures to provide psychological support and determines knowledge level Develops individualized plan of care, and ensures continuity of care Maintains patient's dignity and privacy, and maintains patient confidentiality Identifies and reports philosophical, cultural, and spiritual beliefs and values Identifies individual values and wishes concerning care administers prescribed antibiotic therapy and immunizing agents as ordered, Evaluates postoperative tissue perfusion Implements thermoregulation measures, and monitors body temperature Evaluates postoperative respiratory status Evaluates postoperative cardiac status Evaluates postoperative neurological status Assesses pain control, collaborated in initiating patient-controlled analgesia and implements alternative methods of pain control Verifies allergies, administers prescribed medications and solutions, evaluates response to medications Entry 1 In PACU II 11/13/23 12:07:00 Discharge from PACU 11/13/23 14:00:00 II Outcomes Met? Yes Last Modified By: Magda Redmond RN/12/24 14:11:00 Post-Care Text: The patient demonstrates knowledge of the expected response to the operative or invasive procedure The patient's care is consistent with the individualized perioperative plan of care The patient's right to privacy is maintained The patient's value system, lifestyle, ethnicity, and culture are considered, respected, and incorporated into the perioperative plan of care The patient participates in decisions affecting his or her perioperative plan of care. The patient is free from signs and symptoms of infection The patient has wound/tissue perfusion consistent with or improved from baseline levels established preoperatively The patient is at or returning to normothermia at the conclusion of the immediate postoperative period The patient's respiratory function is consistent with or improved from baseline levels established preoperatively The patient's cardiovascular status is consistent with or improved from baseline levels established preoperatively The patient's neurological status is consistent with or improved from baseline levels established preoperatively The patient demonstrates and/or reports adequate pain control throughout the perioperative period The patient received appropriate medication(s), safely administered during the perioperative period Finalized By: Magda Redmond RN Document Signatures Signed By: Magda Redmond RN 11/13/23 14:11 Normal [facility] URINALYSISOrdered By: SYSTEM SYSTEM on 11-13-2023 Bilirubin Ql (U) Negative Normal Negativemg/ d L [facility] UA Auto SS Clarity (U) Clear (11/13/23 9:35 AM) Normal Clear [facility] UA Auto SS Color (U) Light-Yellow 1 (11/13/23 9:35 AM) Normal Yellow [facility] UA Auto SS Comment on above: Interpretive Data: M icroscopic readings are only performed on those samples that meet specific criteria set forth by [facility]. Glucose Ql (U) Negative Normal Negativemg/d L [facility] UA Auto SS Hemoglobin Auto test strip (U) [Mass/Vol] Trace mg/dL Invalid Interpretation Code Negativemg/d L [facility] UA Auto SS Ketones Auto test strip Ql (U) Negative Normal Negativemg/d L [facility] UA Auto SS Leukocyte esterase Auto test strip Ql (U) Negative Normal NegativeLeu/ uL [facility] UA Auto SS Nitrite Auto test strip Ql (U) Negative Normal Negativemg/d L [facility] UA Auto SS pH (U) 6.0 *NA* (11/13/23 9:35 AM) Invalid Interpretation Code 5.0 - 9.0 [facility] UA Auto SS Protein Ql (U) Negative Normal Negativemg/d L [facility] UA Auto SS Specific gravity (U) [Rel density] 1.023 *NA* (11/13/23 9:35 AM) Invalid Interpretation Code 1.005 - 1.030 [facility] UA Auto SS Urobilinogen (U) [Mass/Vol] Negative Normal Negativemg/d L [facility] UA Auto SS URINALYSISOrdered By: Molly Hines on 11-13-2023 UA Spec Desc [place] (11/13/23 9:35 AM) Normal [facility] UA Auto SS Urinalysis with Microon 11-01 Bilirubin Ql (U) Negative Normal Negative [facility] Comment on above: Performed By: #### [id number] #### [facility] [address] [place] [address] Clarity (U) Clear Normal Clear [facility] Comment on above: Performed By: #### [id number] #### [facility] [address] [place] [address] Color (U) Light-Yellow Normal Yellow [facility] Comment on above: Result Comment: Micr oscopic readings are only performed on those samples that meet specific criteria set forth by [facility]. Performed By: #### 4 [id number] #### [facility] [address] [place] [address] Glucose Ql (U) Negative Normal Negative [facility] Comment on above: Performed By: #### 4 [id number] #### [facility] [address] [place] [address] Hemoglobin Auto test strip (U) [Mass/Vol] Trace Abnormal Negative [facility] Comment on above: Performed By: #### 4 [id number] #### [facility] [address] [place] [address] Ketones Auto test strip Ql (U) Negative Normal Negative [facility] Comment on above: Performed By: #### 4 [id number] #### [facility] [address] [place] [address] Leukocyte esterase Auto test strip Ql (U) Negative Normal Negative [facility] Comment on above: Performed By: #### 4 [id number] #### [facility] [address] [place] [address] Nitrite Auto test strip Ql (U) Negative Normal Negative [facility] Comment on above: Performed By: #### 4 [id number] #### [facility] [address] [place] [address] pH (U) 6.0 [pH] Invalid Interpretation Code 5.0-9.0 [facility] Comment on above: Performed By: #### 4 [id number] #### [facility] [address] [place] [address] Protein Ql (U) Negative Normal Negative [facility] Comment on above: Performed By: #### 4 [id number] #### [facility] [address] [place], [place] [id number] Specific gravity (U) [Rel density] 1.023 Invalid Interpretation Code 1.005-1.030 [facility] Comment on above: Performed By: #### 4 [id number] #### [facility] [address] [place] [address] Urobilinogen (U) [Mass/Vol] Negative Normal Negative [facility] Comment on above: Performed By: #### 4 [id number] #### [facility] [address] [place] [address] Type of Urine collection method [place] Normal [facility] Comment on above: Performed By: #### 4 [id number] #### [facility] [address] [place] [address] COAGULATIONOrdered By: Delmy Kline on 11-03-2023 aPTT Coag (PPP) [Time] 39.4 s High 25.1 - 36.5 second(s) [facility] Comment on above: Interpretive Data: P arameter 15 days - 4 weeks 1 - 5 months 6 - 11 months 1 - 5 years 6 - 10 years 11 - 17 years PTT Mean: 35.4 (27.6-45.6) Mean: 33.5 (24.8-40.7) Mean: 32.4 (25.1-40.7) Mean: 31.6 (24.0-39.2) Mean: 31.6 (26.9-38.7) Mean: 31.0 (24.6-38.4) Pediatric Reference ranges were obtained from a study by lisha Louis prepared from 1437 samples obtained at 7 different centers using the same coagulation reagent and instrumentation as [facility]. Currently there are no coagulation studies available worldwide for children to 14 days, and no normal ranges. Heparin therapeutic range (represented by Anti-Factor Xa activity of 0.2 - 0.4 U/mL) corresponds to PTT of 56.6 - 109.0 sec. PT Coag (PPP) [Time] 11.1 s Normal 9.4 - 1 2.5 second(s) [facility] Comment on above: Interpretive Data: 1 5 days - 4 weeks 1 - 5 months 6 -11 months 1-5 years 6-10 years 11 -17 years Mean: 11.2 (9.5-12.6) Mean: 11.0 (9.7-12.8) Mean: 11.0 (9.8-13.0) Mean: 11.3 (9.9-13.4) Mean: 11.7 (10.0-14.6) Mean: 11.8 (10.0 - 14.1) Pediatric Reference ranges were obtained from a study by lisha Louis prepared from 1437 samples obtained at 7 different centers using the same coagulation reagent and instrumentation as [facility]. Currently there are no coagulation studies available worldwide for children to 14 days, and no normal ranges. LytesOrdered By: SYSTEM SYST EM on 11-03-2023 Anion gap [Moles/Vol] 11 mmol/L Normal 6-16 Rem isol Chem Comment on above: Performed By: #### 2 [id number] #### [facility] [address] [place] [address] Chloride [Moles/Vol] 104 mmol/L Normal 101-111 [facility] Comment on above: Performed By: #### 2 [id number] #### [facility] [address] [place] [address] CO2 [Moles/Vol] 27 mmol/L Normal 21-31 Rem[facility] Chem Comment on above: Performed By: #### 2 [id number] #### [facility] [address] [place] [address] Potassium [Moles/Vol] 3.7 mmol/L Normal 3.5-5.3 Rem isol Chem Comment on above: Performed By: #### 2 [id number] #### [facility] [address] [place] [address] Sodium [Moles/Vol] 138 mmol/L Normal 135-145 Remiso l Chem Comment on above: Performed By: #### 2 [id number] #### [facility] [address] [place] [address] PT & PTTon 11-03-2023 aPTT Coag (PPP) [Time] 39.4 second(s) High 25.1-36.5 [facility] Comment on above: Result Comment: Para meter 15 days - 4 weeks 1 - 5 months 6 - 11 months 1 - 5 years 6 - 10 years 11 - 17 years PTT Mean: 35.4 (27.6-45.6) Mean: 33.5 (24.8-40.7) Mean: 32.4 (25.1-40.7) Mean: 31.6 (24.0-39.2) Mean: 31.6 (26.9-38.7) Mean: 31.0 (24.6-38.4) Pediatric Reference ranges were obtained from a study by Nas Sevilla et al. prepared from 1437 samples obtained at 7 different centers using the same coagulation reagent and instrumentation as [facility]. Currently there are no coagulation studies available worldwide for children to 14 days, and no normal ranges. Heparin therapeutic range (represented by Anti-Factor Xa activity of 0.2 - 0.4 U/mL) corresponds to PTT of 56.6 - 109.0 sec. Performed By: #### 1 [id number] #### [facility] [address] [place] [address] PT Coag (PPP) [Time] 11.1 second(s) Normal 9.4-12.5 [facility] Comment on above: Result Comment: 15 d ays - 4 weeks 1 - 5 months 6 -11 months 1- 5 years 6-10 years 11 -17 years Mean: 11.2 (9.5-12.6) Mean: 11.0 (9.7-12.8) Mean: 11.0 (9.8-13.0) Mean: 11.3 (9.9-13.4) Mean: 11.7 (10.0-14.6) Mean: 11.8 (10.0 - 14.1) Pediatric Reference ranges were obtained from a study by Nas Sevilla et al. prepared from 1437 samples obtained at 7 different centers using the same coagulation reagent and instrumentation as [facility]. Currently there are no coagulation studies available worldwide for children to 14 days, and no normal ranges. Performed By: #### 1 [id number] #### [facility] [address] [place] [address] PT & PTTOrdered By: Tiffany Kline on 11-03-2023 INR Coag (PPP) [Relative time] 0.99 {INR} Invalid Interpretation Code [facility] Comment on above: Interpretive Data: I NR results are specifically intended to assess patients stabilized on long-term Anticoagulation therapy suggested INR s Less Intensive Anticoagulation 2.0 3.0 Conventional Range 3.0 4.5 Result Comment: INR results are specifically intended to assess patients stabilized on long-term Anticoagulation therapy suggested INR?s ?Less Intensive Anticoagulation? 2.0 ? 3.0 Conventional Range 3.0 ? 4.5 Performed By: #### 1 [id number] #### [facility] [address] [place] [address] U BetaHcg QualOrdered By: Ra mary Poon on 11-03-2023 HCG.beta subunit (U) [Moles/Vol] Negative Normal [facility]ero Comment on above: Performed By: #### 2 [id number] #### [facility] [address] [place] [address] XR Chest 2 Viewson 4 XR Chest 2 Views Exam Date/Time: 11/03/2023 16:09 EDT Reason for Exam: P.A.T. Report IMPRESSION: NO RADIOGRAPHIC EVIDENCE OF ACTIVE DISEASE IN THE CHEST. CLINICAL INFORMATION: P.A.T. COMPARISON: OCTOBER 28, 2021 FINDINGS: Two views of the chest were obtained. Heart and mediastinum appear normal. The lungs appear clear. Visualized bony thorax and remainder of the chest appears unremarkable. Ordering Provider: Beck Back FINAL REPORT Dictated: 11/03/2023 5:09 pm Timothy Snowden MD Signed (Electronic Signature): 11/03/2023 5:09 pm Signed by: Timothy Snowden MD Transcribed by: TONE Technologist: BLAIR Technical Comments Radiation Dose: Ka,r in mGy = na DAP = na Normal [facility] Consent for Procedure/Surger yon 10-27-2023 Consent for Procedure/Surgery [id number] Normal [facility] Physician Orderon 10-27-2023 Physician Order [id number]#[id number] Normal [facility] Surgical Pathology Reporton 10-15-2023 Surgical [address] [facility] [address] [place] [address]- Surgical Pathology Report Collected Date/Time: 10/12/2023 17:15 EDT Pathologist: Nura Abdullahi MD Received Date/Time: 10/13/2023 17:00 EDT Nelli COOK, Jame Aiken MD, Jame Fried Surgical Pathology Report - 10/15/2023 15:10 EDT - Auth (Verified) Final Diagnosis ENDOMETRIAL BIOPSY: - Secretory endometrial tissue, negative for malignancy (Electronic Signature) Shahram. Kaylen MD 10/15/2023 15:10 Clinical Information Pelvic pain Pre-Op Diagnosis: Pelvic pain Procedure: _ Post-Op Diagnosis: _ Specimen(s) Received Endometrium, Biopsy Gross Description Received in formalin labeled with patient name, number, and endometrial biopsy is a torrez/reddish-brown soft tissue and/or material measuring in aggregate 3 x 2.7 x 0.5 cm. Specimen is entirely submitted in two cassettes. (DC) DC:[facility] Microscopic Description Microscopic examination performed unless gross only specified. Normal [facility] Comment on above: Performed By: #### 4 [id number] #### [facility] [address] [place] [address] Physician Orderon 10-13-2023 Physician Order [id number] Normal [facility] CTA Cheston 10-11-2023 CTA Chest Exam Date/Time: 10/10/2023 20:01 EDT Reason for Exam: Pulmonary embolism (PE) suspected, high prob;Other (please specify) Report IMPRESSION: NO CT EVIDENCE PULMONARY EMBOLISM. LIMITED EVALUATION OF PERIPHERAL UPPER EXTREMITY VASCULATURE. IF CLINICAL CONCERN WARRANTS, DEDICATED ANGIOGRAPHY OF THE RIGHT UPPER EXTREMITY MAY BE HELPFUL FOR FURTHER EVALUATION. CTA CHEST WITH INTRAVENOUS CONTRAST MEDIUM. COMPARISON: NONE AVAILABLE REASON FOR EXAMINATION: DISCOLORATION RIGHT HAND. TECHNIQUE: Helical CTA was performed through the chest utilizing 100 cc of Isovue 370 intravenous contrast. Images were obtained with bolus tracking in order to opacify the pulmonary arteries. Thick section coronal MIP 3D reconstructions were performed on a separate workstation. FINDINGS: No intraluminal filling defects pulmonary arterial tree. Cardiac size normal. No pericardial effusion. No coronary artery calcification. Aorta normal in course and caliber. Mild dependent subsegmental bibasilar atelectatic change. Calcified granulomas posterior left upper and left lower lobes. No hilar, mediastinal, or axillary lymph node enlargement. Normal-sized lymph nodes bilateral axilla. Limited imaging upper abdomen shows no gross anomaly. No osteoblastic and no osteolytic lesions. All CT scans at this facility use dose modulation, iterative reconstruction, and/or weight based dosing when appropriate to reduce radiation dose to as low as reasonably achievable. Report Ordering Provider: Juliana Rosario FINAL REPORT Dictated: 10/11/2023 10:12 am Timothy Snowden MD Signed (Electronic Signature): 10/11/2023 10:12 am Signed by: Timothy Snowden MD Transcribed by: TONE Technologist: MICHELLE Technical Comments GFR (mL/min/1/73m2) n/a-age Contrast: Isovue 370 Contrast amount in ml's: 70 Normal [facility] ED Note-Physicianon 10-11-19 ED Note-Physician Basic Information Time Seen: Juliana Rosario PA-C 10/10/2023 18:19 Chief Complaint pt to ED with c/o R hand discoloration. denies pain or injury to the area. blueish color noted to R palm. MPS intact. pt denies SOB or CP. History of Present Illness This patient presents emergency department chief complaint of bluish discoloration to her right hand. She denies any pain. She denies any numbness or tingling. She denies any injury. The patient does smoke cigarettes. She states she does have a chronic cough. She was concerned because her brother most recently got a cardiac stent. She denies any chest pain. She denies any difficulty breathing. She denies any nausea or vomiting. She denies any urinary or bladder complaints. Patient has had a repair of her hernia. She cannot think of any other surgical history. She does take medication for hypertension. Review of Systems Constitutional: Denies weight loss, fevers, chills, sweats, malaise Eyes: Denies visual changes, eye pain, double vision, scotomas, floaters ENT: Denies runny nose, epistaxis, sinus pain, ear pain, ringing in ears, tooth ache, sore throat, pain with swallowing Cardiovascular: Denies chest pain, shortness of breath, orthopnea, edema, palpitations, loss of consciousness, claudication Respiratory: Denies cough, sputum production, wheezing, hemoptysis, shortness of breath, dyspnea on exertion Gastrointestinal: Denies abdominal pain, unintentional weight loss, difficulty swallowing, indigestion, bloating, cramping, loss of appetite, nausea, vomiting, diarrhea, constipation, hematochezia, melena Genitourinary: Denies any incontinence of urine, dysuria, hematuria, nocturia, polyuria, hesitancy, frequency, urgency, burning Musculoskeletal: Denies joint pain, morning stiffness, joint swelling, decreased range of motion, crepitus Integumentary: Denies any pruritus, rashes, lesions, wounds, petechiae Neurologic: Denies any changes in sight, smell, hearing, taste, seizures, headache, paresthesia, numbness, weakness, balance disturbance Psychiatric denies any depression, change in sleep patterns, anxiety, difficulty concentrating, paranoia, anhedonia, lack of energy, teto Hematologic/lymphatic: Denies any purpura, petechiae, excessive bleeding, bruising Physical Exam Vitals & Measurements T: 37.2 ?C(Tympanic) HR: 83(Peripheral) RR: 16 BP: 133/88 SpO2: 99% HT: 167 cm WT: 64.8 kg BMI: 23.23 Vital signs and nursing notes reviewed. General: Awake, alert, NAD. HEENT: Head is normocephalic, atraumatic. PERRL. EOMI. Sclerae are anicteric. External ears are normal. TMs are intact bilaterally. Canals are clear bilaterally. Nares are patent bilaterally. Oral mucosa is pink and moist. No lesions noted. Tongue protrudes in midline. Uvula rises with phonation. Neck is supple, no no palpable adenopathy. No JVD. Trachea is midline. Thorax: Symmetrical rise and fall Lungs: Clear to auscultation throughout all carter, no wheezes, no crackles Heart: Regular rate and rhythm. No murmur, gallop, or rub Abdomen: No tenderness on palpation. Bowel sounds are present active and normal. No organomegaly. No palpable masses. No CVA tenderness. Extremities: Motor sensory pulses intact x4 extremities. No lower extremity edema. On evaluation of the right palm, there is some mild cyanosis. Patient has brisk capillary refill. Patient has a strong regular radial pulse. Distal neurovascular is intact. She has full active range of motion of the hand, digits. Skin: No lesions, rashes, ulcerations. No bruising or petechiae. Color appropriate, warm and dry Neuro: No oriented x3, no focal neuro deficits Psych: Mood and affect are normal Medical Decision Making MEDICAL DECISION MAKING Number and Complexity of Problems Differential Diagnosis: Peripheral arterial disease, peripheral vascular disease, pulmonary embolism, ACS, Raynaud's phenomenon MDM Data External documents reviewed: Not applicable My EKG interpretation: Noted in chart if applicable My CT interpretation: Noted in chart if applicable My X-ray interpretation: Noted in chart if applicable My Ultrasound interpretation: Not applicable Decision rules/scores evaluated: Noted in chart if applicable Discussed with: Not applicable Treatment and Disposition ED Course: Patient was interviewed and examined. The appropriate ER workup was initiated. White blood count 9.3, hemoglobin 14.0, hematocrit 40.5, platelet 201. Pro time 12.2, INR 1.09, PTT 38.9. Sodium 139, potassium 3.1, chloride 106, CO2 26, BUN 9, creatinine 0.8, glucose 125, calcium 9.2. Lactate normal at 1.2. 0-hour troponin 2.30. BN peptide normal at 43. 1 hour delta troponin 2.30. I discussed the results of the blood work with the patient. I discussed with the patient that we were awaiting the CTA of the chest results. CT of the chest results are back. I went to the patient's room to discuss the results with her. The patient had eloped. Shared decision making: Code status: Not appli (more content not included)... Normal [facility] Comment on above: Result Comment: Elec tronically Signed By: Juliana Rosario PA-C\.br\Date and Time Signed: 10/10/23 23:24 EDT\.br\Electronically Co-Signed By: Juliana Rosario PA-C\.br\Date and Time Co-Signed: 10/10/23 23:25 EDT\.br\Electronically Co-Signed By: Carlos Alberto Quiroz DO\.br\Date and Time Co-Signed: 10/11/23 07:09 EDT BMPOrdered By: SYSTEM SYSTEM on 10-10-2023 Anion gap [Moles/Vol] 10 mmol/L Normal 6-16 Rem isol Chem Comment on above: Performed By: #### 2 [id number] #### [facility] [address] [place] [address] Calcium [Mass/Vol] 9.2 mg/dL Normal 8.9-11.1 Remiso l Chem Comment on above: Performed By: #### 2 [id number] #### [facility] [address] [place] [address] Chloride [Moles/Vol] 106 mmol/L Normal 101-111 Cody luann Chem Comment on above: Performed By: #### 2 [id number] #### [facility] [address] [place] [address] CO2 [Moles/Vol] 26 mmol/L Normal 21-31 Rem[facility] Chem Comment on above: Performed By: #### 2 [id number] #### [facility] [address] [place] [address] Creatinine [Mass/Vol] 0.8 mg/dL Normal 0.5-1.3 Rem isol Chem Comment on above: Performed By: #### 2 [id number] #### [facility] [address] [place] [address] Glucose [Mass/Vol] 125 mg/dL Normal 55-199 Remiso l Chem Comment on above: Performed By: #### 2 [id number] #### [facility] [address] [place] [address] Potassium [Moles/Vol] 3.1 mmol/L Low 3.5-5.3 Rem isol Chem Comment on above: Performed By: #### 2 [id number] #### [facility] [address] [place] [address] Sodium [Moles/Vol] 139 mmol/L Normal 135-145 Remiso l Chem Comment on above: Performed By: #### 2 [id number] #### [facility] [address] [place] [address] Urea nitrogen [Mass/Vol] 9 mg/dL Normal 5-21 [facility] Chem Comment on above: Performed By: #### 2 [id number] #### [facility] [address] [place] [address] BMPon 10-10-2023 Urea nitrogen/Creatinine [Mass ratio] 11 No Units Normal 10-20 [facility] Comment on above: Performed By: #### 2 [id number] #### [facility] [address] [place] [address] BNPOrdered By: Sylvia crocker on 10-10-2023 Natriuretic peptide B (Bld) [Mass/Vol] 43 pg/mL Normal 5-80 [facility] Comment on above: Performed By: #### 1 [id number] #### [facility] [address] [place] [address] CBC w/ Auto DiffOrdered By: SYSTEM SYSTEM on 10-10-2023 Basophils/100 WBC (Bld) 0.3 % Normal 0.0-2.0 [facility] Comment on above: Performed By: #### 2 [id number] #### [facility] [address] [place] [address] Basophils/Leukocytes Auto (Bld) [Pure # fraction] 0.0 E9/L Normal 0.0-0.2 [facility] Comment on above: Performed By: #### 2 [id number] #### [facility] [address] [place] [address] Eosinophils (Bld) [#/Vol] 0.2 E9/L Normal 0.0-0.5 [facility] Comment on above: Performed By: #### 2 [id number] #### [facility] [address] [place] [address] Eosinophils/100 WBC (Bld) 2.1 % Normal 0.0-8.0 [facility] Comment on above: Performed By: #### 2 [id number] #### [facility] [address] [place] [address] Erythrocyte distribution width (RBC) [Ratio] 14.1 % Normal 10.9-14.2 [facility] Comment on above: Performed By: #### 2 [id number] #### [facility] [address] [place] [address] Hematocrit (Bld) [Volume fraction] 40.5 % Normal 34.0-46.0 [facility] Comment on above: Performed By: #### 2 [id number] #### [facility] [address] [place] [address] Hemoglobin (Bld) [Mass/Vol] 14.0 g/dL Normal 12.0-16.0 [facility] Comment on above: Performed By: #### 2 [id number] #### [facility] [address] [place] [address] Lymphocytes (Bld) [#/Vol] 2.7 E9/L Normal 1.0-4.0 [facility] Comment on above: Performed By: #### 2 [id number] #### [facility] [address] [place] [address] Lymphocytes/100 WBC (Bld) 29.0 % Normal 14.0-50.0 [facility] Comment on above: Performed By: #### 2 [id number] #### [facility] [address] [place] [address] MCH (RBC) [Entitic mass] 30.9 pg Normal 27.0-34.0 [facility] Comment on above: Performed By: #### 2 [id number] #### [facility] [address] [place] [address] MCHC (RBC) [Mass/Vol] 34.6 g/dL Normal 31.4-36.0 Rem isol Heme Comment on above: Performed By: #### 2 [id number] #### [facility] [address] [place] [address] MCV (RBC) [Entitic vol] 89.1 fL Normal 80.0-100.0 [facility] Comment on above: Performed By: #### 2 [id number] #### [facility] [address] [place] [address] Monocytes (Bld) [#/Vol] 0.5 E9/L Normal 0.2-1.0 [facility] Comment on above: Performed By: #### 2 [id number] #### [facility] [address] [place] [address] Neutrophils (Bld) [#/Vol] 5.9 E9/L Normal 2.0-7.5 [facility] Comment on above: Performed By: #### 2 [id number] #### [facility] [address] [place] [address] Neutrophils/100 WBC (Bld) 63.3 % Normal 36.0-75.0 [facility] Comment on above: Performed By: #### 2 [id number] #### [facility] [address] [place] [address] Platelet 201.0 E9/L Normal 150.0-500.0 [facility] Comment on above: Performed By: #### 2 [id number] #### [facility] [address] [place] [address] Platelet mean volume (Bld) [Entitic vol] 9.3 fL Normal 6.4-10.8 [facility] Comment on above: Performed By: #### 2 [id number] #### [facility] [address] [place] [address] RBC (Bld) [#/Vol] 4.6 E12/L Normal 4.3-5.9 [facility] Comment on above: Performed By: #### 2 [id number] #### [facility] [address] [place] [address] WBC corrected for nucl RBC Auto (Bld) [#/Vol] 9.3 E9/L Normal 4.0-11.0 [facility] Comment on above: Performed By: #### 2 [id number] #### [facility] [address] [place] [address] CHEMISTRYOrdered By: SYSTEM SYSTEM on 10-10-2023 Troponin HS 2.30 pg/mL Low 10.10 - 27.10 pg/mL [facility] Chem Comment on above: Interpretive Data: T he 95% CI (Confidence Interval) PPV (Positive Predictive Value) for myocardial infarction in females is 38 pg/mL, in males 51 pg/mL. The results should be used in conjunction with clinical conditions of myocardial infarction. (Access High Sensitivity Troponin I Instructions For Use, [employer], December 2017) Albumin/Globulin [Mass ratio] 1.7 {ratio} Normal 1.1 - 2.2 Remisol Chem ALP [Catalytic activity/Vol] 42 [iU]/d Normal 21 - 98 Int._Unit/L Remisol Chem ALT No additional P-5'-P [Catalytic activity/Vol] 8 [iU]/d Normal 6 - 46 Int._Unit/L Remisol Chem AST [Catalytic activity/Vol] 10 [iU]/d Normal 5 - 43 Int._Unit/L Remisol Chem Troponin HS pg/mL Low 10.10 - 27.10 pg/mL [facility] Chem Comment on above: Interpretive Data: T he 95% CI (Confidence Interval) PPV (Positive Predictive Value) for myocardial infarction in females is 38 pg/mL, in males 51 pg/mL. The results should be used in conjunction with clinical conditions of myocardial infarction. (Access High Sensitivity Troponin I Instructions For Use, [employer], December 2017) Urea nitrogen/Creatinine [Mass ratio] 11 mg/mg Normal 10 - 20 Remisol Chem COAGULATIONOrdered By: Ananth Hall on 10-10-2023 aPTT Coag (PPP) [Time] 38.9 s High 25.1 - 36.5 second(s) [facility] Comment on above: Interpretive Data: P arameter 15 days - 4 weeks 1 - 5 months 6 - 11 months 1 - 5 years 6 - 10 years 11 - 17 years PTT Mean: 35.4 (27.6-45.6) Mean: 33.5 (24.8-40.7) Mean: 32.4 (25.1-40.7) Mean: 31.6 (24.0-39.2) Mean: 31.6 (26.9-38.7) Mean: 31.0 (24.6-38.4) Pediatric Reference ranges were obtained from a study by lisha Louis prepared from 1437 samples obtained at 7 different centers using the same coagulation reagent and instrumentation as [facility]. Currently there are no coagulation studies available worldwide for children to 14 days, and no normal ranges. Heparin therapeutic range (represented by Anti-Factor Xa activity of 0.2 - 0.4 U/mL) corresponds to PTT of 56.6 - 109.0 sec. PT Coag (PPP) [Time] 12.2 s Normal 9.4 - 1 2.5 second(s) [facility] Comment on above: Interpretive Data: 1 5 days - 4 weeks 1 - 5 months 6 -11 months 1-5 years 6-10 years 11 -17 years Mean: 11.2 (9.5-12.6) Mean: 11.0 (9.7-12.8) Mean: 11.0 (9.8-13.0) Mean: 11.3 (9.9-13.4) Mean: 11.7 (10.0-14.6) Mean: 11.8 (10.0 - 14.1) Pediatric Reference ranges were obtained from a study by lisha Louis prepared from 1437 samples obtained at 7 different centers using the same coagulation reagent and instrumentation as [facility]. Currently there are no coagulation studies available worldwide for children to 14 days, and no normal ranges. Consent for Treatmenton Consent for Treatment [id number] Normal [facility] ED Clinical Summaryon 2023 ED Clinical Summary (Inserted Image. Rosanna ble to display) [place] [id number] ED Clinical Summary Person Information Name: CHARLES BALDWIN [place] Age: 42 Years : 1980 Sex: Female Language: Turkish PCP: AIMEE ADAIR CNP Marital Status: Phone: [phone] Visit Id: Visit Reason: Medical problem - minor; DISCOLORATION IN RIGHT HAND Speciality: Acuity: 3 Enc Type: Emergency Med Service: Emergency Arrival: 10/10/2023 18:07:50 Discharge: 10/10/2023 23:36:21 LOS: 000 05:29 Checkin: 10/10/2023 18:07:50 Checkout: 10/10/2023 23:36:21 Dispo Type: Left Against Medical Advice EVENTS: Event Name Event Status Request Date/Time Start Date/Time Complete Date/Time Arrive Complete 10/10/2023 18:07:50 10/10/2023 18:07:50 10/10/2023 18:07:50 Document Home Meds Request 10/10/2023 18:07:50 Triage Complete 10/10/2023 18:07:50 10/10/2023 18:17:04 10/10/2023 18:17:04 Registration Complete 10/10/2023 18:10:13 10/10/2023 18:10:13 10/10/2023 18:10:13 Reg Complete Request 10/10/2023 18:10:13 Reg Bed Request Complete 10/10/2023 18:10:13 10/10/2023 18:10:13 10/10/2023 18:10:13 Isolation Screening Request 10/10/2023 18:17:05 Bed Assign Complete 10/10/2023 18:17:19 10/10/2023 18:17:19 10/10/2023 18:17:19 Dr Exam Complete 10/10/2023 18:17:19 10/10/2023 18:19:23 10/10/2023 18:19:23 RN Exam Complete 10/10/2023 18:17:19 10/10/2023 19:30:44 10/10/2023 19:30:44 Registration Request 10/10/2023 18:19:23 Dr Exam Complete 10/10/2023 18:20:03 10/10/2023 18:20:03 10/10/2023 18:20:03 EKG Complete 10/10/2023 18:47:13 10/10/2023 18:53:02 Meds Admin Complete 10/10/2023 18:47:13 10/10/2023 19:09:50 Pending Labs Inlab 10/10/2023 18:47:13 Lab Inlab 10/10/2023 18:47:13 Patient Care Request 10/10/2023 18:47:13 X-Ray Cancel 10/10/2023 18:47:13 10/10/2023 19:01:52 RT Request 10/10/2023 18:47:13 CT Complete 10/10/2023 18:47:13 10/10/2023 19:15:31 10/10/2023 20:01:51 Pending Labs Complete 10/10/2023 19:05:51 10/10/2023 19:05:51 10/10/2023 19:25:28 Lab Complete 10/10/2023 19:05:51 10/10/2023 19:05:51 10/10/2023 19:25:28 Pending Labs Cancel 10/10/2023 20:21:53 10/10/2023 20:33:00 Lab Cancel 10/10/2023 20:21:53 10/10/2023 20:33:00 Pending Labs Complete 10/10/2023 20:32:56 10/10/2023 20:32:56 10/10/2023 20:49:30 Lab Complete 10/10/2023 20:32:56 10/10/2023 20:32:56 10/10/2023 20:49:30 Discharge Complete 10/10/2023 23:36:42 10/10/2023 23:36:42 10/10/2023 23:36:42 Transfer Complete 10/10/2023 23:36:42 10/10/2023 23:36:42 10/10/2023 23:36:42 ADDRESS: [address] [place] [id number] PHYS DOC NOTES: MEDICAL INFORMATION: Prescriptions Given: Medications to Continue with No Changes Other Medications acetaminophen (Tylenol) 650 Milligram By Mouth every 6 hours as needed as needed for pain. albuterol (Proventil HFA 90 mcg/inh Aerosol) 2 Puffs Inhalation 4 times a day. Refills: 0. ibuprofen (ibuprofen 800 mg Tab) 1 Tablets By Mouth 3 times a day as needed as needed for pain. PATIENT EDUCATION INFORMATION: Instructions: Follow up: DIAGNOSIS: 1:Eloped from emergency department; 2:Tobacco abuse disorder Normal [facility] ED Note-Nursingon 10-10-2023 ED Note-Nursing Pt was not in room w hen provider went to discuss CT results. Registration stated she saw them leave approx 2300. Pt still had iv in left 20 gauge. [facility] contacted. Normal [facility] ED Patient Education Noteon 10-10-2023 ED Patient Education Note Normal [facility] ED Patient Summaryon 024 ED Patient Summary (Inserted Image. Rosanna ble to display) [address] [address] Patient Discharge Instructions Person Information Name: BRANDI BALDWINLLYadiel Friedman Age: 42 Years Arrival Date: 10/10/2023 18:07:50 Discharge Diagnosis: 1:Eloped from emergency department; 2:Tobacco abuse disorder Primary Care Physician: AIMEE ADAIR CNP Provider Information Primary Provider: Carlos Alberto Quiroz DO Advanced Outboard Motor Tester:None The exam and treatment you received in the Emergency Department were for an urgent problem and are not intended as complete care. It is important that you follow up with a doctor, nurse practitioner, or physician?s political science research assistant for ongoing care. If your symptoms become worse or you do not improve as expected and you are unable to reach your usual health care provider, you should return to the Emergency Department. We are available 24 hours a day. CHARLES BALDWIN has been given the following list of patient education materials, prescriptions and follow-up instructions: Follow-up Instructions: In the event that this physician does not participate in your insurance network, please consult with your insurance company to find a nearby participating provider. Patient Education Materials: A MESSAGE TO ALL PATIENTS REGARDING OPIOIDS PRESCRIPTION OPIOIDS: WHAT YOU NEED TO KNOW Prescription opioids can be used to help relieve atdjoomz-lt-mqooig pain and are often prescribed following a surgery or injury, or for certain health conditions. These medications can be an important part of the treatment but also come with serious risks. It is important to work with your healthcare provider to make sure you are getting the safest, most effective care. WHAT ARE THE RISKS AND SIDE EFFECTS OF OPIOID USE? Prescription opioids carry serious risks of addiction and overdose, especially with prolonged use. An opioid overdose, often marked by slowed breathing, can cause sudden . The use of prescription opioids can have a number of side effects as well, even when taken as directed: ? Tolerance?meaning you might need to take more of the medication for the same pain relief ? Physical dependence?meaning you have symptoms of withdrawal when a medication is stopped ? Increased sensitivity to pain ? Constipation ? Nausea, vomiting, and dry mouth ? Sleepiness and dizziness ? Confusion ? Depression ? Low levels of testosterone that can result in lower sex drive, energy, and strength ? Itching and sweating RISKS ARE GREATER WITH: ? History of drug misuse, substance use disorder, or overdose ? Mental health conditions (such as depression or anxiety) ? Sleep apnea ? Older age (65 years and older) ? Avoid alcohol while taking prescription opioids. Also, unless specifically advised by your health care provider, medications to avoid include: ? Benzodiazepines (such as Xanax or Valium) ? Muscle relaxants (such as Soma or Flexeril) ? Hypnotics (such as Ambien or Lunesta) ? Other prescription opioids KNOW YOUR OPTIONS Talk to your health care provider about ways to manage your pain that don?t involve prescription opioids. Some of these options may actually work better and have fewer risks and side effects. Options may include: ? Pain relievers such as acetaminophen, ibuprofen, and naproxen ? Some medication that are also used for depression or seizures ? Physical therapy and exercise ? Cognitive behavioral therapy, a psychological, goal-directed approach, in which patients learn how to modify physical, behavioral, and emotional triggers of pain and stress. IF YOU ARE PRESCRIBED OPIOIDS FOR PAIN: ? Never take opioids in greater amounts or more often than prescribed. ? Follow up with your primary health care provider. o Work together to create a plan on how to manage your pain. o Talk about ways to help manage your pain that don?t involve prescription opioids. o Talk about any and all concerns and side effects. ? Help prevent misuse and abuse o Never sell or share prescription opioids. o Never use another person?s prescription opioids. ? Store prescription opioids in a secure place and out of reach of others (this may include visitors, children, friends, and family). ? Safely dispose of unused prescription opioids: Find your community drug take-back program or your pharmacy mail-back program, or flush them down the toilet, following guidance from the Food and Drug Administration (www.fda.gov/Drugs/Resourc esForYou). ? Visit www.cdc.gov/drugoverdose to learn about the risks of opioids abuse and overdose. ? If you believe you may be struggling with addiction, tell your health home care giver and ask for guidance or call [facility]?S National Helpline at 2-659-590-ICCU. v Source: [place] Department of Health and Human Services/Center for Disease Control & Prevention [facility] Medicati (more content not included)... Normal [facility] HEMATOLOGYOrdered By: SYSTEM SYSTEM on 10-10-2023 Monocytes/100 WBC (Bld) 5.3 % Normal 4.0 - 14.0 % Remisol Heme Hep Func PanelOrdered By: [employer] SYSTEM on 10-10-2023 Albumin [Mass/Vol] 4.5 g/dL Normal 3.3-5.0 Remiso l Chem Comment on above: Performed By: #### 2 [id number] #### [facility] [address] [place] [address] Bilirubin [Mass/Vol] 0.4 mg/dL Normal 0.0-1.1 Cody luann Chem Comment on above: Performed By: #### 2 [id number] #### [facility] [address] [place] [address] Bilirubin.direct [Mass/Vol] 0.1 mg/dL Normal 0.0-0.4 Remisol Chem Comment on above: Performed By: #### 2 [id number] #### [facility] [address] [place] [address] Bilirubin.indirect [Mass or moles/Vol] 0.3 mg/dL Normal 0.1-0.9 Remisol Chem Comment on above: Performed By: #### 2 [id number] #### [facility] [address] [place] [address] Globulin (S) [Mass/Vol] 2.6 g/dL Normal 1.4-4.0 Remisol Chem Comment on above: Performed By: #### 2 [id number] #### [facility] [address] [place] [address] Protein [Mass/Vol] 7.1 g/dL Normal 6.0-7.8 Remiso l Chem Comment on above: Performed By: #### 2 [id number] #### [facility] [address] [place] [address] Hep Func Panelon 10-10-2023 Albumin/Globulin (S) [Mass conc ratio] 1.7 Normal 1.1-2.2 [facility] Comment on above: Performed By: #### 2 [id number] #### [facility] [address] [place] [address] ALP [Catalytic activity/Vol] 42 Int._Unit/L Normal 21-98 [facility] Comment on above: Performed By: #### 2 [id number] #### [facility] [address] [place] [address] ALT No additional P-5'-P [Catalytic activity/Vol] 8 Int._Unit/L Normal 6-46 [facility] Comment on above: Performed By: #### 2 [id number] #### [facility] [address] [place] [address] AST [Catalytic activity/Vol] 10 Int._Unit/L Normal 5-43 [facility] Comment on above: Performed By: #### 2 [id number] #### [facility] [address] [place] [address] Lactic AcidOrdered By: [employer] SYSTEM on 10-10-2023 Lactic Acid Lvl 1.2 mmol/L Normal 0.5-2.2 Remisol Chem Comment on above: Performed By: #### 2 [id number] #### [facility] [address] [place] [address] PT & PTTon 10-10-2023 aPTT Coag (PPP) [Time] 38.9 second(s) High 25.1-36.5 [facility] Comment on above: Result Comment: Para meter 15 days - 4 weeks 1 - 5 months 6 - 11 months 1 - 5 years 6 - 10 years 11 - 17 years PTT Mean: 35.4 (27.6-45.6) Mean: 33.5 (24.8-40.7) Mean: 32.4 (25.1-40.7) Mean: 31.6 (24.0-39.2) Mean: 31.6 (26.9-38.7) Mean: 31.0 (24.6-38.4) Pediatric Reference ranges were obtained from a study by maira Louis. prepared from 1437 samples obtained at 7 different centers using the same coagulation reagent and instrumentation as [facility]. Currently there are no coagulation studies available worldwide for children to 14 days, and no normal ranges. Heparin therapeutic range (represented by Anti-Factor Xa activity of 0.2 - 0.4 U/mL) corresponds to PTT of 56.6 - 109.0 sec. Performed By: #### 1 [id number] #### [facility] [address] [place] [address] PT Coag (PPP) [Time] 12.2 second(s) Normal 9.4-12.5 [facility] Comment on above: Result Comment: 15 d ays - 4 weeks 1 - 5 months 6 -11 months 1- 5 years 6-10 years 11 -17 years Mean: 11.2 (9.5-12.6) Mean: 11.0 (9.7-12.8) Mean: 11.0 (9.8-13.0) Mean: 11.3 (9.9-13.4) Mean: 11.7 (10.0-14.6) Mean: 11.8 (10.0 - 14.1) Pediatric Reference ranges were obtained from a study by Nas Sevilla et al. prepared from 1437 samples obtained at 7 different centers using the same coagulation reagent and instrumentation as [facility]. Currently there are no coagulation studies available worldwide for children to 14 days, and no normal ranges. Performed By: #### 1 [id number] #### [facility] [address] [place] [address] PT & PTTOrdered By: Sylvia Hall on 10-10-2023 INR Coag (PPP) [Relative time] 1.09 {INR} Invalid Interpretation Code [facility] Comment on above: Interpretive Data: I NR results are specifically intended to assess patients stabilized on long-term Anticoagulation therapy suggested INR s Less Intensive Anticoagulation 2.0 3.0 Conventional Range 3.0 4.5 Result Comment: INR results are specifically intended to assess patients stabilized on long-term Anticoagulation therapy suggested INR?s ?Less Intensive Anticoagulation? 2.0 ? 3.0 Conventional Range 3.0 ? 4.5 Performed By: #### 1 [id number] #### [facility] [address] [place] [address] RAD - Preliminary Cat Scan R eporton 10-10-2023 RAD - Preliminary Cat Scan Report [id number]#1.00TIFF Normal [facility] Troponin 0 Hr.on 10-10-2023 Troponin HS <2.30 Low 10.10-27.10 [facility] Comment on above: Result Comment: The 95% CI (Confidence Interval) PPV (Positive Predictive Value) for myocardial infarction in females is 38 pg/mL, in males 51 pg/mL. The results should be used in conjunction with clinical conditions of myocardial infarction. (Access High Sensitivity Troponin I Instructions For Use, [employer], December 2017) Performed By: #### 1 [id number] #### [facility] [address] [place] [address] Troponin 1 Hr.on 10-10-2023 Troponin HS 2.30 pg/mL Low 10.10-27.10 [facility] Comment on above: Result Comment: The 95% CI (Confidence Interval) PPV (Positive Predictive Value) for myocardial infarction in females is 38 pg/mL, in males 51 pg/mL. The results should be used in conjunction with clinical conditions of myocardial infarction. (Access High Sensitivity Troponin I Instructions For Use, [employer], December 2017) Performed By: #### 1 [id number] #### [facility] [address] [place] [address] eGFROrdered By: CHELSEA GlySureYadiel Microstaq on 10-10-2023 eGFR 94 mL/min/1.73 m2 Normal >=59 Remisol Chem Comment on above: Order Comment: Order added by Discern Expert. Performed By: #### 1 [id number] #### [facility] [address] [place] [address] US Pelvis Non-OB Completeon 10-02-2023 US Pelvis Non-OB Complete Exam Date/Time: 09/29/2023 17:00 EDT Reason for Exam: R10.2 Report IMPRESSION: Unremarkable ultrasound of the female pelvis. HISTORY: Intermittent mid pelvic pain for 2 months, heavy periods. COMPARISON: 08/02/2021. TECHNIQUE: Sonography of the pelvis was performed by transabdominal technique. Images were obtained and stored in a permanent archive. RESULT: Uterus: -Orientation: Anteverted -Size: Uterus Length: 8.6 cm x Uterus Width: 5.1 cm x Uterus Height: 3.8 cm. Uterus Volume: 86.2 cm3 -Myometrium: Homogeneous echotexture. -Endometrial echo complex: Endometrium Thickness: 0.9 cm -Cervix: Normal Right ovary: 1.4 cm simple appearing cyst/follicle. -Size: Right Ovary Length: 2.4 cm x Right Ovary Width: 1.9 cm x Right Ovary Height: 2.0 cm. Right Ovary Volume: 5.0 cm3 -Complex cyst: None. -Solid mass: None. -Vascular flow present. Left ovary: Normal sonographic appearance. -Size: Left Ovary Length: 1.9 cm x Left Ovary Width: 1.4 cm x Left Ovary Height: 1.2 cm. Left Ovary Volume: 1.7 cm3 -Complex cyst: None. -Solid mass: None. -Vascular flow present. Free fluid: None. Ordering Provider: Vida Guevara FINAL REPORT Dictated: 10/02/2023 2:35 pm Srikanth Adams MD Signed (Electronic Signature): 10/02/2023 2:35 pm Signed by: Srikanth Adams MD Transcribed by: TONE Technologist: ALEXUS Technical Comments Transabdominal Ultrasound Performed Normal [facility] PAP [id number] 09-25-2023 Cytology report Cyto stain Doc (Cvx/Vag) Note Invalid Interpretation Code [facility] Comment on above: Result Comment: TEST S RESULT FLAG UNITS REF RANGE LAB Clinician Provided Cytology Information Source.............Cervix LMP / Prev Treat...None No. of containers..01 ThinPrep Vial DIAGNOSIS: 01 NEGATIVE FOR INTRAEPITHELIAL LESION OR MALIGNANCY. Specimen adequacy: 01 Satisfactory for evaluation. Endocervical and/or squamous metaplastic cells (endocervical component) are present. Performed by: Kamila New, Visual Inspector (ASCP) . 01 Note: Note 01 The Pap smear is a screening test designed to aid in the detection of premalignant and malignant conditions of the uterine cervix. It is not a diagnostic procedure and should not be used as the sole means of detecting cervical cancer. Both false-positive and false-negative reports do occur. Test Methodology: Note 01 This liquid based ThinPrep(R) pap test was screened with the use of an image guided system. FLAG LEGEND: L-Low Normal,H-High Normal,LL-Alert Low,HH-Alert High <-Panic Low,>-Panic High,A-Abnormal,AA-Critical Abnormal Performed at: [address] [address] Neema Kent MD, Performed By: #### 3 [id number] #### [facility] [address] [place] [address] HPV 16+18+31+33+35+39+45+ 51+52+56+58+59+66+68 DNA Probe+sig amp Ql (Cvx) Negative Invalid Interpretation Code Negative [facility] Comment on above: Result Comment: This nucleic acid amplification test detects fourteen high-risk HPV types (16,18,31,33,35,39,45,51,52,56,58,59,66,68) without differentiation. Performed at: Lab[address] [id number] MD Donte Bethea Performed at: =[address] [id number] MD Donte Bethea Performed By: #### 3 [id number] #### [facility] [address] [place] [address] PAP [id number] 09-21-2023 Collection Technique BRUSH-SPATULA Normal [facility] Comment on above: Performed By: #### 3 [id number] #### [facility] [address] [place] [address] Gynecological Body Site CERVIX Normal [facility] Comment on above: Performed By: #### 3 [id number] #### [facility] [address] [place] [address] Previous Cytology Negative Normal [facility] Comment on above: Performed By: #### 3 [id number] #### [facility] [address] [place] [address] Previous Treatment NONE Normal [facility] Comment on above: Performed By: #### 3 [id number] #### [facility] [address] [place] [address] Physician Orderon 09-21-2023 Physician Order [id number]#1.00TIFF Normal [facility] Physician Order [id number]#1.00TIFF Normal [facility] Physician Orderon 09-18-2023 Physician Order [id number]#1.00TIFF Normal [facility] XR Spine Cervical 4 or 5 Vie wson 09-13-2023 XR Spine Cervical 4 or 5 Views Exam Date/Time: 09/10/2023 17:48 EDT Reason for Exam: M54.2 CERVICAL PAIN Report IMPRESSION: NO ACUTE OSSEOUS ABNORMALITY. EXAMINATION: XR Spine Cervical 4 or 5 Views TECHNIQUE: AP, lateral, bilateral oblique, and odontoid views HISTORY: Painful bump at the base of the neck on the left. Cervical pain. COMPARISONS: None available. FINDINGS: Slight straightening of the cervical lordosis. Cervical vertebral body heights are maintained. Intervertebral disc heights are maintained. The lateral masses of C1 articulate symmetrically with C2. Atlantodental interval is preserved. No fracture or spondylolisthesis. No high-grade osseous neuroforaminal stenosis. Prevertebral soft tissues have a normal appearance. Ordering Provider: , FINAL REPORT Dictated: 09/13/2023 1:30 pm Abisai German DO Signed (Electronic Signature): 09/13/2023 1:30 pm Signed by: Abisai German DO Transcribed by: TONE Technologist: LUCIO Technical Comments Radiation Dose: Ka,r in mGy = na DAP = na Normal [facility] CBC w/ Auto Diffon 4 Basophils/100 WBC (Bld) 0.4 % Normal 0.0-2.0 [facility] Comment on above: Performed By: #### 2 [id number], [id number], [id number], [id number], [id number], [id number] ####[facility] [id number] [place] [address] Basophils/Leukocytes Auto (Bld) [Pure # fraction] 0.0 E9/L Normal 0.0-0.2 [facility] Comment on above: Performed By: #### 2 [id number], [id number], [id number], [id number], [id number], [id number] ####[address] [address] Eosinophils (Bld) [#/Vol] 0.5 E9/L Normal 0.0-0.5 [facility] Comment on above: Performed By: #### 2 [id number], [id number], [id number], [id number], [id number], [id number] ####[address] [address] Eosinophils/100 WBC (Bld) 4.6 % Normal 0.0-8.0 [facility] Comment on above: Performed By: #### 2 477187, [id number], [id number], 1288126, [id number], [id number] ####[address] [address] Erythrocyte distribution width (RBC) [Ratio] 14.2 % Normal 10.9-14.2 [facility] Comment on above: Performed By: #### 2 186501, 1357578, 56207140, 5826288, 688405108, 53837335 ####[address] [address] Hematocrit (Bld) [Volume fraction] 41.4 % Normal 34.0-46.0 [facility] Comment on above: Performed By: #### 2 698082, 0805203, 54901438, 0142572, 139572825, 56053313 ####[address] [place] [address] Hemoglobin (Bld) [Mass/Vol] 13.9 g/dL Normal 12.0-16.0 [facility] Comment on above: Performed By: #### 2 079094, 8096647, 22016774, 6373008, 048977392, 56122447 ####[address] [address] Lymphocytes (Bld) [#/Vol] 3.5 E9/L Normal 1.0-4.0 [facility] Comment on above: Performed By: #### 2 960467, 6468787, 47228672, 8559832, 792862271, 66784081 ####[facility] [address] [place] [address] Lymphocytes/100 WBC (Bld) 35.7 % Normal 14.0-50.0 [facility] Comment on above: Performed By: #### 2 905396, 0167769, 33016079, 7028900, 981492864, 89031130 ####[address] [place] [address] MCH (RBC) [Entitic mass] 30.3 pg Normal 27.0-34.0 [facility] Comment on above: Performed By: #### 2 646496, 5781901, 41349294, 1296058, 944940013, 68525511 ####[address] [address] MCHC (RBC) [Mass/Vol] 33.7 g/dL Normal 31.4-36.0 [facility] Comment on above: Performed By: #### 2 323789, 2152074, 56938941, 3897745, 126168530, 52889322 ####[address] [address] MCV (RBC) [Entitic vol] 89.9 fL Normal 80.0-100.0 [facility] Comment on above: Performed By: #### 2 948605, 3269025, 48166124, 2674329, 419031267, 66706721 ####[address] [place] [address] Monocytes (Bld) [#/Vol] 0.8 E9/L Normal 0.2-1.0 [facility] Comment on above: Performed By: #### 2 793483, 4338503, 26565827, 5550096, 048581926, 41478442 ####[facility] [address] [place] [address] Neutrophils (Bld) [#/Vol] 5.0 E9/L Normal 2.0-7.5 [facility] Comment on above: Performed By: #### 2 831710, 8170597, 78802713, 8145776, 417072339, 89381156 ####[address] [place] [address] Neutrophils/100 WBC (Bld) 51.6 % Normal 36.0-75.0 [facility] Comment on above: Performed By: #### 2 189411, 3806358, 48123527, 4163230, 515087616, 68998039 ####[address] [address] Platelet mean volume (Bld) [Entitic vol] 9.9 fL Normal 6.4-10.8 [facility] Comment on above: Performed By: #### 2 370198, 8772687, 84292367, 2261796, 210601428, 08040194 ####[address] [address] Platelets (Bld) [#/Vol] 196.0 E9/L Normal 150.0-500.0 [facility] Comment on above: Performed By: #### 2 131405, 7307227, 21638247, 3102286, 861709098, 10559256 ####[address] [address] RBC (Bld) [#/Vol] 4.6 E12/L Normal 4.3-5.9 [facility] Comment on above: Performed By: #### 2 593674, 8746753, 75347589, 1933547, 196580354, 79247489 ####[address] [place] [address] WBC corrected for nucl RBC Auto (Bld) [#/Vol] 9.8 E9/L Normal 4.0-11.0 [facility] Comment on above: Performed By: #### 2 386382, 0759798, 54589787, 0429749, 967675884, 08079977 ####[facility] [address] [place] [address] CHEMISTRYOrdered By: SYSTEM SYSTEM on 09-10-2023 Albumin [Mass/Vol] 4.7 g/dL Normal 3.3 - 5.0 gm/dL Rem[facility] Chem Albumin/Globulin [Mass ratio] 2.0 {ratio} Normal 1.1 - 2.2 [facility] Chem ALP [Catalytic activity/Vol] 42 [iU]/d Normal 21 - 98 Int._Unit/L [facility] Chem ALT No additional P-5'-P [Catalytic activity/Vol] 12 [iU]/d Normal 6 - 46 Int._Unit/L [facility] Chem Anion gap [Moles/Vol] 12 mmol/L Normal 6 - 16 mEq/L R emisol Chem AST [Catalytic activity/Vol] 13 [iU]/d Normal 5 - 43 Int._Unit/L [facility] Chem Bilirubin [Mass/Vol] 0.2 mg/dL Normal 0.0 - 1 .1 mg/dL [facility] Calcium [Mass/Vol] 9.3 mg/dL Normal 8.9 - 11. 1 mg/dL [facility] Chloride [Moles/Vol] 104 mmol/L Normal 101 - 1 11 mmol/L [facility] Cholesterol [Mass/Vol] 184 mg/dL Normal 120 - 200 mg/dL [facility] Cholesterol in HDL [Mass/Vol] 51 mg/dL Invalid Interpretation Code [facility] Comment on above: Result Comment: '>= 60 LOW RISK' '<= 40 HIGH RISK' Cholesterol in LDL [Mass/Vol] 119 mg/dL Normal <=129mg/dL [facility] Cholesterol in VLDL [Mass/Vol] 35 mg/dL Normal 7 - 40 mg/dL [facility] CO2 [Moles/Vol] 27 mmol/L Normal 21 - 31 mmol/L [facility] Creatinine [Mass/Vol] 0.7 mg/dL Normal 0.5 - 1.3 mg/dL [facility] Chem eGFR 110 mL/min/1.73 m2 Normal >=59mL/mi n/1 .73 m2 [facility] Globulin (S) [Mass/Vol] 2.4 g/dL Normal 1.4 - 4.0 gm/dL [facility] Glucose [Mass/Vol] 89 mg/dL Normal 55 - 199 mg/dL [facility] Potassium [Moles/Vol] 3.9 mmol/L Normal 3.5 - 5.3 mmol/L [facility] Protein [Mass/Vol] 7.1 g/dL Normal 6.0 - 7.8 gm/dL [facility] Sodium [Moles/Vol] 139 mmol/L Normal 135 - 145 mmol/L [facility] Chem T4 [Mass/Vol] 7.9 ug/dL Normal 4.6 - 9.1 mcg/dL [facility] Triglyceride [Mass/Vol] 173 mg/dL High <=149mg/dL [facility] Chem TSH Qn 0.93 m[IU]/L Normal 0.34 - 5.60 mcIU/mL [facility] Urea nitrogen [Mass/Vol] 10 mg/dL Normal 5 - 21 mg/dL [facility] Urea nitrogen/Creatinine [Mass ratio] 14 mg/mg Normal 10 - 20 [facility] CHEMISTRYOrdered By: Keshav santana on 09-10-2023 HbA1c (Bld) [Mass fraction] 5.2 % Normal <=5.9% [facility] ChemAutoSS CMPon 09-10-2023 Albumin [Mass/Vol] 4.7 g/dL Normal 3.3-5.0 [facility] Comment on above: Performed By: #### 2 539497, 9074770, 48008153, 4342988, 526748091, 73257579 ####[facility] [address] [place] [address] Albumin/Globulin (S) [Mass conc ratio] 2.0 Normal 1.1-2.2 [facility] Comment on above: Performed By: #### 2 610989, 8880629, 96991410, 7109498, 825633950, 84035254 ####[facility] [address] [place] [address] ALP [Catalytic activity/Vol] 42 Int._Unit/L Normal 21-98 [facility] Comment on above: Performed By: #### 2 957475, 7663709, 42994039, 6159064, 910217805, 42521103 ####[facility] [address] [place] [address] ALT No additional P-5'-P [Catalytic activity/Vol] 12 Int._Unit/L Normal 6-46 [facility] Comment on above: Performed By: #### 2 223906, 2706020, 66790327, 6048044, 230522820, 52174246 ####[facility] [address] [place] [address] Anion gap [Moles/Vol] 12 mmol/L Normal 6-16 [facility] Comment on above: Performed By: #### 2 234860, 8822880, 45629663, 5220032, 380924595, 55441346 ####[facility] [address] [place] [address] AST [Catalytic activity/Vol] 13 Int._Unit/L Normal 5-43 [facility] Comment on above: Performed By: #### 2 845840, 0606311, 95583673, 9061870, 099782421, 07019822 ####[facility] [address] [place] [address] Bilirubin [Mass/Vol] 0.2 mg/dL Normal 0.0-1.[address] [facility] Comment on above: Performed By: #### 2 061961, 1215244, 97390775, 2059096, 988776875, 78240574 ####[facility] [address] [place] [address] Calcium [Mass/Vol] 9.3 mg/dL Normal 8.9-11.1 [facility] Comment on above: Performed By: #### 2 562093, 7312301, 17162643, 7733140, 228528533, 53906691 ####[facility] [address] [place] [address] Chloride [Moles/Vol] 104 mmol/L Normal 101-111 [facility] Comment on above: Performed By: #### 2 325155, 4338029, 24380079, 6826760, 435249626, 60446607 ####[facility] [address] [place] [address] CO2 [Moles/Vol] 27 mmol/L Normal 21-31 [facility] Comment on above: Performed By: #### 2 353260, 7380732, 95739988, 7953785, 512338176, 92457353 ####[facility] [address] [place] [address] Creatinine [Mass/Vol] 0.7 mg/dL Normal 0.5-1.3 [facility] Comment on above: Performed By: #### 2 273296, 3697825, 44182122, 0745407, 795045196, 26187113 ####[facility] [address] [place] [address] Globulin (S) [Mass/Vol] 2.4 g/dL Normal 1.4-4.0 [facility] Comment on above: Performed By: #### 2 750295, 0174089, 70936426, 9771806, 899328008, 41621154 ####[facility] [address] [place] [address] Glucose [Mass/Vol] 89 mg/dL Normal 55-199 [facility] Comment on above: Performed By: #### 2 138154, 5950320, 32103606, 0284345, 347512374, 09053199 ####[facility] [address] [place] [address] Potassium [Moles/Vol] 3.9 mmol/L Normal 3.5-5.3 [facility] Comment on above: Performed By: #### 2 037178, 0297499, 87780428, 4564237, 841783357, 17818271 ####[facility] [address] [place] [address] Protein [Mass/Vol] 7.1 g/dL Normal 6.0-7.8 [facility] Comment on above: Performed By: #### 2 895798, 8361843, 35231887, 1917123, 213346207, 13980423 ####[facility] [address] [place] [address] Sodium [Moles/Vol] 139 mmol/L Normal 135-145 [facility] Comment on above: Performed By: #### 2 777944, 4384957, 31316443, 8891796, 419218345, 27390140 ####[facility] [address] [place] [address] Urea nitrogen [Mass/Vol] 10 mg/dL Normal 5-21 [facility] Comment on above: Performed By: #### 2 740025, 6866694, 04133382, 4443743, 693255938, 49773405 ####[facility] [address] [place] [address] Urea nitrogen/Creatinine [Mass ratio] 14 No Units Normal 10-20 [facility] Comment on above: Performed By: #### 2 384223, 1656081, 54432013, 4050003, 260216188, 33523194 ####[facility] [address] [place] [address] Consent for Treatmenton Consent for Treatment [id number]#[id number] Normal [facility] HEMATOLOGYOrdered By: SYSTEM SYSTEM on 09-10-2023 Basophils/100 WBC (Bld) 0.4 % Normal 0.0 - 2.0 % [facility] Heme Basophils/Leukocytes Auto (Bld) [Pure # fraction] 0.0 E9/L Normal 0.0 - 0.2 E9/L [facility] Eosinophils (Bld) [#/Vol] 0.5 E9/L Normal 0.0 - 0.5 E9/L [facility] Eosinophils/100 WBC (Bld) 4.6 % Normal 0.0 - 8.0 % [facility] Erythrocyte distribution width (RBC) [Ratio] 14.2 % Normal 10.9 - 14.2 % [facility] Hematocrit (Bld) [Volume fraction] 41.4 % Normal 34.0 - 46.0 % [facility]e Hemoglobin (Bld) [Mass/Vol] 13.9 g/dL Normal 12.0 - 16.0 gm/dL [facility]e Lymphocytes (Bld) [#/Vol] 3.5 E9/L Normal 1.0 - 4.0 E9/L [facility]e Lymphocytes/100 WBC (Bld) 35.7 % Normal 14.0 - 50.0 % [facility]e MCH (RBC) [Entitic mass] 30.3 pg Normal 27.0 - 34.0 pg Rem[facility] Heme MCHC (RBC) [Mass/Vol] 33.7 g/dL Normal 31.4 - 36.0 gm/dL [facility]e MCV (RBC) [Entitic vol] 89.9 fL Normal 80.0 - 100.0 fL [facility]e Monocytes (Bld) [#/Vol] 0.8 E9/L Normal 0.2 - 1.0 E9/L [facility]e Monocytes/100 WBC (Bld) 7.7 % Normal 4.0 - 14.0 % [facility] Neutrophils (Bld) [#/Vol] 5.0 E9/L Normal 2.0 - 7.5 E9/L [facility] Neutrophils/100 WBC (Bld) 51.6 % Normal 36.0 - 75.0 % [facility] Platelet mean volume (Bld) [Entitic vol] 9.9 fL Normal 6.4 - 10.8 fL [facility] Platelets (Bld) [#/Vol] 196.0 E9/L Normal 150.0 - 500.0 E9/L [facility]e RBC (Bld) [#/Vol] 4.6 E12/L Normal 4.3 - 5.9 E12/L [facility] WBC corrected for nucl RBC Auto (Bld) [#/Vol] 9.8 E9/L Normal 4.0 - 11.0 E9/L [facility] Heme [id number] 09-10-2023 HbA1c (Bld) [Mass fraction] 5.2 % Normal <=5.9 [facility] Comment on above: Performed By: #### 2 552829, 9352777, 58043590, 8716659, 256815509, 40659557 ####[facility] [address] [place] [address] Lipid Panelon 09-10-2023 Cholesterol [Mass/Vol] 184 mg/dL Normal 120-200 [facility] Comment on above: Performed By: #### 2 536499, 0191311, 32676728, 6827349, 173262649, 04353519 ####[facility] [address] [place] [address] Cholesterol in HDL [Mass/Vol] 51 mg/dL Invalid Interpretation Code [facility] Comment on above: Result Comment: '>= 60 LOW RISK' '<= 40 HIGH RISK' Performed By: #### 2 521023, 3500518, 43607341, 2177632, 243599333, 09567430 ####[facility] [address] [place] [address] Cholesterol in LDL [Mass/Vol] 119 mg/dL Normal <=129 [facility] Comment on above: Performed By: #### 2 651164, 9848605, 94263708, 7218034, 926899563, 05912706 ####[facility] [address] [place] [address] Cholesterol in VLDL [Mass/Vol] 35 mg/dL Normal 7-40 [facility] Comment on above: Performed By: #### 2 086109, 0704299, 95281986, 3176092, 970767077, 43253531 ####[facility] [address] [place] [address] Triglyceride [Mass/Vol] 173 mg/dL High <=149 [facility] Comment on above: Performed By: #### 2 742025, 2083837, 99791118, 4318348, 138460615, 87798088 ####[facility] [address] [place] [address] Physician Orderon 09-10-2023 Physician Order [id number] Normal [facility] T4 & TSHon 09-10-2023 TSH Qn 0.93 m[IU]/L Normal 0.34-5.60 [facility] Comment on above: Performed By: #### 2 560399, 7397785, 14183713, 7163433, 333939431, 88460729 ####[facility] [address] [place] [address] T4 [Mass/Vol] 7.9 microgram/dL Normal 4.6-9.1 [facility] Comment on above: Performed By: #### 2 897669, 4072585, 80649340, 7300011, 039007063, 32079631 ####[facility] [address] [place] [address] eGFRon 09-10-2023 eGFR 110 mL/min/1.73 m2 Normal >=59 [facility] Comment on above: Order Comment: Order added by Discern Expert. Performed By: #### 2 550523, 8506984, 12326861, 2127527, 616742551, 36517313 ####[facility] [address] [place] [address] XR ABDOMEN (KUB) (SINGLE AP VIEW)on 12-10-2022 XR ABDOMEN (KUB) (SINGLE AP VIEW) EXAMINATION: ONE SUPINE XRAY VIEW(S) OF THE ABDOMEN 12/10/2022 4:04 am COMPARISON: None. HISTORY: ORDERING SYSTEM PROVIDED HISTORY: foreign body to urethra TECHNOLOGIST PROVIDED HISTORY: Reason for exam:->foreign body to urethra What reading provider will be dictating this exam?->CRC FINDINGS: 7.6 cm linear metallic foreign body overlying the central pelvis, region of the bladder with transverse orientation. Adnexal ligation clips. No ileus or obstruction. Osseous and body wall soft tissues unremarkable. IMPRESSION: 7.6 cm linear metallic foreign body overlying the central pelvis, region of the bladder with transverse orientation. RECOMMENDATION: Careful clinical correlation and follow up recommended. Interpreted by: Aixa Doherty MD Signed by: Aixa Doherty MD 12/10/22 Final result [facility] Consenton 11-28-2022 Consent [id number]#[id number]:127 [facility] Registrationon 11-28-2022 Registration [id number]#[id number]:127 [facility] C Urineon 10-30-2022 Bacteria identified Cx Nom (U) Microbiology PROCEDURE: Urine Culture [R1] SOURCE: U CleanCatch BODY SITE: COLLECTED DATE/TIME: 10/27/2022 18:50 EDT RECEIVED DATE/TIME: 10/28/2022 11:42 EDT START DATE/TIME: 10/28/2022 11:42 EDT FREE TEXT SOURCE: Gatito THAKKAR, Elpidio Mederos PA-C, Elpidio Tan FINAL REPORTS Final Report [] Verified Date/Time: 10/30/2022 09:14 EDT >100,000 cfu/ml Escherichia coli SUSCEPTIBILITY RESULTS _ LEGEND: S=Susceptible, N/R=Not Reported, Blank=Data not available, or drug not advisable or tested, I=Intermediate, ESBL=Extended spectrum beta-lactamase, R=Resistant, TFG=Thymidine-dependent strain, DAYRON=Beta-lactamase positive, PRISCILLA=mcg/m;(mg/L), S*=Predicted susceptible interp, R*=Predicted resistant interp EC Antibiotic PRISCILLA Dilutn PRISCILLA Interp Amikacin <=16 S Ampicillin <=8 S Ampicillin/ <=8/4 S Sulbactam Aztreonam <=4 S Cefazolin <=2 S Cefepime <=2 S Cefoxitin <=8 S Ceftazidime <=1 S Ceftazidime/ <=8 S Avibactam Ceftriaxone <=1 S Ciprofloxacin <=1 S Ertapenem <=0.5 S Gentamicin <=4 S Levofloxacin <=2 S Meropenem <=1 S Nitrofurantoin <=32 S Piperacillin/ <=16 S Tazobactam Tetracycline <=4 S Tigecycline <=2 S Tobramycin <=4 S Trimethoprim/ <=2/38 S Sulfa Performing Locations R1: This test was performed at: [facility], [address] [place] [address], [address]- , , Normal [facility] Comment on above: Performed By: #### 2 822559 #### [facility] [address] [place] [address] Family Medicine Office/Clini c Noteon 10-27-2022 Family Medicine Office/Clinic Note Chief Complaint EST middle back pain left side under ribs HPI Staff Pt 41 yo female presents with middle back left side under ribs Symptoms began: 2 days ago Injury?- none known Location-left side middle under ribs Characteristics- dull achy pain radiating around to the front under breast left side Aggravators- constant waking up at night Relief- no Severity- 3/10 Hx of back issues- no Numbness/Tingling- no Treatment- no History of Present Illness I have reviewed and verified the staff HPI to be accurate for this encounter. Portions of this record have been created with voice recognition software. Occasional wrong-word or ?vxllt-y-brdn? substitutions may have occurred due to the inherent limitations of voice recognition software. 41 yo female presents to CC today with cc of left mid back pain. Pt states onset of pain x 2 days ago. She denies any falls trauma or injuries to the back. Pt states pain is at the left middle portion of her back under her ribs. Rates the pain as a 3/10 dull, achy. States the pain radiated around her side, to the front under the left breast, but only twice. States the pain is constant, waking her up at night. She denies any cough, SOB, or CP. She denies any hx of back issues, or chronic pain. She has not tried any modifying factors. Denies fever, chills, rash. No pain with urination. No dysuria, hematuria. She states when she has to go the bathroom, she has to go now. Urgency. Denies frequency. States she believes she had small stone in the past. None recent. No abdominal pain, nausea, vomiting, or diarrhea. LMP 2 weeks ago. Denies chance of . 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 States she hasn't worked x 1 week due to having bronchitis. She states she was treated with antibiotic and steroid. Recently completed that treatment. Has not done any heavy lifting, does carry a blower at work on the left, she is right hand dominant. Is a daily smoker. Does not use BC pills, or implant. No hx of DVT or PE. No lower extremity swelling or tenderness. Review of Systems PHQ Score Initial Depression Screen Score: 0 Physical Exam Vitals & Measurements T: 36.8 ?C(Oral) HR: 85(Peripheral) BP: 114/76 SpO2: 100% HT: 66 in HT: 168 cm WT: 65.5 kg WT: 144.1 lb BMI: 23.21 General: Pt appears tired. No acute distress. Eyes: Pupils equal, round, and reactive to light. Conjunctivae and sclerae normal, and extraocular movements intact Ears: not assessed Nose: not addressed Mouth: not assessed Neck: Normal alignment of the cervical spine. No step-offs or deformities. No localized cervical spine or paraspinal tenderness. Patient is able to touch her chin to her chest. No focal deficits. Lungs: clear to auscultation throughout, no wheezing, no rales. No respiratory distress Cardio: regular rate and rhythm, no murmur Abdomen: not assessed Musculoskeletal: Normal alignment of spinal column no step-offs or deformities. No localized thoracic or lumbar spine tenderness. No paraspinal tenderness. No CVA tenderness. No rashes lacerations abrasions or lesions. No bruising. Patient has discomfort with palpation of the left mid back region does not radiate. Patient states it feels with deep. Bilateral straight leg raise is negative. Extremity: No clubbing, cyanosis, edema, or deformity, with normal ROM in both upper and lower bilateral extremities Strong radial and pedal pulses with brisk capillary refill bilaterally. Neurologic: not assessed Skin: No rashes, ulcerations, or suspicious lesions Mental Status: Alert and oriented x3. Normal mood and affect Assessment/Plan 1. Back pain (M54.9: Dorsalgia, unspecified) Please follow-up with your primary care provider in 3 to 5 days contact their office tomorrow morning to schedule a follow-up appointment. You were seen and evaluated in convenient care today in regards to left mid back pain. This seems to be musculoskeletal in nature however we checked a urine specimen which was negative for UTI at this time we will send this for culture given trace amount of blood and trace protein in the urine. Continue to drink plenty of water use Tylenol or ibuprofen as needed for pain ice or heating pad on the left mid back for comfort. He should go to the emergency department develop any fever chills weakness nausea vomiting severe back or abdominal pain back pain with shortness of breath chest pain or difficulty breathing. Ordered: Urine Culture Urnls Dip Stick Non-Auto w/o Micrscpy POC 27333 2. Hematuria (R31.9: Hematuria, unspecified) You will be notified in approximately 2 to 3 days in regards to urinalysis results. We will rule out urinary tract infection you have followed up with urology in the past in regards to microscopic hematuria in the urine you could not recall as to what that follow-up resulted in continue to monitor you may need to follow-up with urology again in the future. Follow-up With When Contact Information RED PETIT, FIFI Graham (more content not included)... Normal [facility] Comment on above: Result Comment: Elec tronically Signed By: Gatito THAKKAR, Elpidio Tan\.br\Date and Time Signed: 10/27/22 18:52 EDT Patient Educationon 10-28-19 Patient Education Orthopedics Musculoskeletal Pain Musculoskeletal pain refers to aches and pains in your bones, joints, muscles, and the tissues that surround them. This pain can occur in any part of the body. It can last for a short time (acute) or a long time (chronic). A physical exam, lab tests, and imaging studies may be done to find the cause of your musculoskeletal pain. Follow these instructions at home: Lifestyle ? Try to control or lower your stress levels. Stress increases muscle tension and can worsen musculoskeletal pain. It is important to recognize when you are anxious or stressed and learn ways to manage it. This may include: ? Meditation or yoga. ? Cognitive or behavioral therapy. ? Acupuncture or massage therapy. ? You may continue all activities unless the activities cause more pain. When the pain gets better, slowly resume your normal activities. Gradually increase the intensity and duration of your activities or exercise. Managing pain, stiffness, and swelling ? Treatment may include medicines for pain and inflammation that are taken by mouth or applied to the skin. Take bnqg-dhj-adwwizw and prescription medicines only as told by your health care provider. ? When your pain is severe, bed rest may be helpful. Lie or sit in any position that is comfortable, but get out of bed and walk around at least every couple of hours. ? If directed, apply heat to the affected area as often as told by your health care provider. Use the heat source that your health care provider recommends, such as a moist heat pack or a heating pad. ? Place a towel between your skin and the heat source. ? Leave the heat on for 20?30 minutes. ? Remove the heat if your skin turns bright red. This is especially important if you are unable to feel pain, heat, or cold. You may have a greater risk of getting burned. ? If directed, put ice on the painful area. To do this: ? Put ice in a plastic bag. ? Place a towel between your skin and the bag. ? Leave the ice on for 20 minutes, 2?3 times a day. ? Remove the ice if your skin turns bright red. This is very important. If you cannot feel pain, heat, or cold, you have a greater risk of damage to the area. General instructions ? Your health care provider may recommend that you see a physical therapist. This person can help you come up with a safe exercise program. ? If told by your health care provider, do physical therapy exercises to improve movement and strength in the affected area. ? Keep all follow-up visits. This is important. This includes any physical therapy visits. Contact a health care provider if: ? Your pain gets worse. ? Medicines do not help ease your pain. ? You cannot use the part of your body that hurts, such as your arm, leg, or neck. ? You have trouble sleeping. ? You have trouble doing your normal activities. Get help right away if: ? You have a new injury and your pain is worse or different. ? You feel numb or you have tingling in the painful area. Summary ? Musculoskeletal pain refers to aches and pains in your bones, joints, muscles, and the tissues that surround them. ? This pain can occur in any part of the body. ? Your health care provider may recommend that you see a physical therapist. This person can help you come up with a safe exercise program. Do any exercises as told by your physical therapist. ? Lower your stress level. Stress can worsen musculoskeletal pain. Ways to lower stress may include meditation, yoga, cognitive or behavioral therapy, acupuncture, and massage therapy. This information is not intended to replace advice given to you by your health care provider. Make sure you discuss any questions you have with your health care provider. Document Revised: 08/23/2020 Document Reviewed: 08/01/2020 [employer] Patient Education ? 2022 [employer]. Urology Hematuria, Adult Hematuria is blood in the urine. Blood may be visible in the urine, or it may be identified with a test. This condition can be caused by infections of the bladder, urethra, kidney, or prostate. Other possible causes include: ? Kidney stones. ? Cancer of the urinary tract. ? Too much calcium in the urine. ? Conditions that are passed from parent to child (inherited conditions). ? Exercise that requires a lot of energy. Infections can usually be treated with medicine, and a kidney stone usually will pass through your urine. If neither of these is the cause of your hematuria, more tests may be needed to identify the cause of your symptoms. It is very important to tell your health care provider about any blood in your urine, even if it is painless or the blood stops without treatment. Blood in the urine, when it happens and then stops and then happens again, can be a symptom of a very serious condition, including cancer. There is no pain in the initial stages of many urinary cancers (more content not included)... Normal [facility] CHEMISTRYOrdered By: SYSTEM SYSTEM on 06-30-2022 Albumin [Mass/Vol] 4.4 g/dL Normal 3.3 - 5.0 gm/dL [facility] Albumin/Globulin [Mass ratio] 1.4 {ratio} Normal 1.1 - 2.2 [facility] ALP [Catalytic activity/Vol] 45 [iU]/d Normal 21 - 98 Int._Unit/L [facility] ALT No additional P-5'-P [Catalytic activity/Vol] 10 [iU]/d Normal 6 - 46 Int._Unit/L [facility] Anion gap [Moles/Vol] 13 mmol/L Normal 6 - 16 mEq/L [facility] AST [Catalytic activity/Vol] 14 [iU]/d Normal 5 - 43 Int._Unit/L [facility] Bilirubin [Mass/Vol] 0.3 mg/dL Normal 0.0 - 1 .1 mg/dL [facility] Calcium [Mass/Vol] 9.6 mg/dL Normal 8.9 - 11. 1 mg/dL [facility] Chloride [Moles/Vol] 98 mmol/L Low 101 - 1 11 mmol/L [facility] Cholesterol [Mass/Vol] 176 mg/dL Normal 120 - 200 mg/dL [facility] Cholesterol in HDL [Mass/Vol] 50 mg/dL Invalid Interpretation Code [facility] Cholesterol in LDL [Mass/Vol] 102 mg/dL Normal <=129mg/dL [facility] Cholesterol in VLDL [Mass/Vol] 38 mg/dL Normal 7 - 40 mg/dL [facility] CO2 [Moles/Vol] 29 mmol/L Normal 21 - 31 mmol/L [facility] Creatinine [Mass/Vol] 0.9 mg/dL Normal 0.5 - 1.3 mg/dL [facility] GFR/1.73 sq M.predicted among blacks MDRD (S/P/Bld) [Vol rate/Area] mL/min/1.73 m2 Normal >=59mL/min/1 .73 m2 [facility] Chem S GFR/1.73 sq M.predicted among non-blacks MDRD (S/P/Bld) [Vol rate/Area] mL/min/1.73 m2 Normal >=59mL/min/1 .73 m2 [facility] Chem S Globulin (S) [Mass/Vol] 3.2 g/dL Normal 1.4 - 4.0 gm/dL [facility] Glucose [Mass/Vol] 77 mg/dL Normal 55 - 199 mg/dL [facility] Potassium [Moles/Vol] 3.2 mmol/L Low 3.5 - 5.3 mmol/L [facility] Protein [Mass/Vol] 7.6 g/dL Normal 6.0 - 7.8 gm/dL [facility] Sodium [Moles/Vol] 137 mmol/L Normal 135 - 145 mmol/L [facility] Triglyceride [Mass/Vol] 191 mg/dL High <=149mg/dL [facility] TSH Qn 1.07 m[IU]/L Normal 0.34 - 5.60 mcIU/mL [facility] Urea nitrogen [Mass/Vol] 15 mg/dL Normal 5 - 21 mg/dL [facility] Urea nitrogen/Creatinine [Mass ratio] 17 mg/mg Normal 10 - 20 [facility] HEMATOLOGYOrdered By: Johnson Alicea on 06-30-2022 Band form neutrophils/100 WBC (Bld) 1 % Normal 0 - 10 % [facility]SS Basophils/100 WBC (Bld) 0 % Normal 0 - 2 % [facility] Basophils/Leukocytes Manual cnt (Bld) [Pure # fraction] 0.0 E9/L Normal 0.0 - 0.2 E9/L [facility] Eosinophils/100 WBC (Bld) 1 % Normal 0 - 8 % [facility] Eosinophils/Leukocyte s Manual cnt (Bld) [Pure # fraction] 0.1 E9/L Normal 0.0 - 0.5 E9/L [facility] Erythrocyte distribution width (RBC) [Ratio] 14.8 % High 10.9 - 14.2 % [facility] Hematocrit (Bld) [Volume fraction] 46.7 % High 34.0 - 46.0 % [facility] Hemoglobin (Bld) [Mass/Vol] 15.3 g/dL Normal 12.0 - 16.0 gm/dL [facility] Lymphocytes/100 WBC (Bld) 33 % Normal 14 - 50 % [facility] Lymphocytes/Leukocyte s Manual cnt (Bld) [Pure # fraction] 6.5 E9/L High 1.0 - 4.0 E9/L [facility] MCH (RBC) [Entitic mass] 29.3 pg Normal 27.0 - 34.0 pg [facility] MCHC (RBC) [Mass/Vol] 32.8 g/dL Normal 31.4 - 36.0 gm/dL [facility] MCV (RBC) [Entitic vol] 89.4 fL Normal 80.0 - 100.0 fL [facility] Monocytes/100 WBC (Bld) 10 % Normal 4 - 14 % [facility] Monocytes/Leukocytes Manual cnt (Bld) [Pure # fraction] 1.4 E9/L High 0.2 - 1.0 E9/L [facility] Morphology Ignacio (Bld) [Interp] Normal (06/30/22 8:51 AM) Normal [facility] Neutrophils/Leukocyte s Auto (Bld) [Pure # fraction] 5.6 E9/L Normal 2.0 - 7.5 E9/L [facility] Platelet mean volume (Bld) [Entitic vol] 9.4 fL Normal 6.4 - 10.8 fL [facility] Platelets (Bld) [#/Vol] 246.0 E9/L Normal 150.0 - 500.0 E9/L [facility] RBC (Bld) [#/Vol] 5.2 E12/L Normal 4.3 - 5.9 E12/L [facility] Segmented neutrophils/100 WBC (Bld) 40 % Normal 36 - 75 % [facility] Variant lymphocytes LM Ql (Bld) 15 % Invalid Interpretation Code [facility]eManSS WBC corrected for nucl RBC Auto (Bld) [#/Vol] 13.6 E9/L High 4.0 - 11.0 E9/L [facility] CHEMISTRYOrdered By: SYSTEM SYSTEM on 10-28-2021 Albumin [Mass/Vol] 4.6 g/dL Normal 3.3 - 5.0 gm/dL [facility] Albumin/Globulin [Mass ratio] 1.5 {ratio} Normal 1.1 - 2.2 [facility] ALP [Catalytic activity/Vol] 43 [iU]/d Normal 21 - 98 Int._Unit/L [facility] ALT No additional P-5'-P [Catalytic activity/Vol] 14 [iU]/d Normal 6 - 46 Int._Unit/L [facility] Anion gap [Moles/Vol] 12 mmol/L Normal 6 - 16 mEq/L [facility] AST [Catalytic activity/Vol] 21 [iU]/d Normal 5 - 43 Int._Unit/L [facility] Bilirubin [Mass/Vol] 0.5 mg/dL Normal 0.0 - 1 .1 mg/dL [facility] Bilirubin.direct [Mass/Vol] 0.2 mg/dL Normal 0.1 - 0.4 mg/dL [facility] Bilirubin.indirect [Mass or moles/Vol] 0.3 mg/dL Normal 0.1 - 0.9 mg/dL [facility] Calcium [Mass/Vol] 9.6 mg/dL Normal 8.9 - 11. 1 mg/dL [facility] Chloride [Moles/Vol] 100 mmol/L Low 101 - 1 11 mmol/L [facility] CO2 [Moles/Vol] 28 mmol/L Normal 21 - 31 mmol/L [facility] Creatinine [Mass/Vol] 0.7 mg/dL Normal 0.5 - 1.3 mg/dL [facility] GFR/1.73 sq M.predicted among blacks MDRD (S/P/Bld) [Vol rate/Area] mL/min/1.73 m2 Normal >=59mL/min/1 .73 m2 [facility] Chem S GFR/1.73 sq M.predicted among non-blacks MDRD (S/P/Bld) [Vol rate/Area] mL/min/1.73 m2 Normal >=59mL/min/1 .73 m2 [facility] Chem S Globulin (S) [Mass/Vol] 3.0 g/dL Normal 1.4 - 4.0 gm/dL [facility] Glucose [Mass/Vol] 92 mg/dL Normal 55 - 199 mg/dL [facility] Lipase [Catalytic activity/Vol] 42 U/L Normal 13 - 58 unit/L [facility] Potassium [Moles/Vol] 3.5 mmol/L Normal 3.5 - 5.3 mmol/L [facility] Protein [Mass/Vol] 7.6 g/dL Normal 6.0 - 7.8 gm/dL [facility] Sodium [Moles/Vol] 136 mmol/L Normal 135 - 145 mmol/L [facility] Troponin I.cardiac [Mass/Vol] pg/mL Low 10.10 - 27.10 pg/mL [facility] Urea nitrogen [Mass/Vol] 12 mg/dL Normal 5 - 21 mg/dL [facility] Urea nitrogen/Creatinine [Mass ratio] 17 mg/mg Normal 10 - 20 [facility] COAGULATIONOrdered By: Corrina Ackerman on 10-28-2021 aPTT Coag (PPP) [Time] 37.2 s High 25.1 - 36.5 second(s) [facility] Auto [facility]ag INR Coag (PPP) [Relative time] 1.0 {INR} Invalid Interpretation Code [facility] Auto Coag PT Coag (PPP) [Time] 12.1 s Normal 10.2 - 12.9 second(s) [facility] Auto Coag HEMATOLOGYOrdered By: SYSTEM SYSTEM on 10-28-2021 Basophils/100 WBC (Bld) 0.4 % Normal 0.0 - 2.0 % [facility] Basophils/Leukocytes Auto (Bld) [Pure # fraction] 0.0 E9/L Normal 0.0 - 0.2 E9/L [facility] Eosinophils/100 WBC (Bld) 3.5 % Normal 0.0 - 8.0 % [facility] Eosinophils/Leukocyte s Auto (Bld) [Pure # fraction] 0.3 E9/L Normal 0.0 - 0.5 E9/L [facility] Lymphocytes/100 WBC (Bld) 29.5 % Normal 14.0 - 50.0 % [facility] Lymphocytes/Leukocyte s Auto (Bld) [Pure # fraction] 2.8 E9/L Normal 1.0 - 4.0 E9/L [facility] Monocytes/100 WBC (Bld) 6.6 % Normal 4.0 - 14.0 % [facility] Monocytes/Leukocytes Auto (Bld) [Pure # fraction] 0.6 E9/L Normal 0.2 - 1.0 E9/L [facility] Neutrophils/100 WBC (Bld) 60.0 % Normal 36.0 - 75.0 % [facility] Neutrophils/Leukocyte s Auto (Bld) [Pure # fraction] 5.6 E9/L Normal 2.0 - 7.5 E9/L [facility] HEMATOLOGYOrdered By: Zachariah Mcelroy on 10-28-2021 Erythrocyte distribution width (RBC) [Ratio] 15.5 % High 10.9 - 14.2 % [facility] Hematocrit (Bld) [Volume fraction] 40.6 % Normal 34.0 - 46.0 % [facility] Hemoglobin (Bld) [Mass/Vol] 14.0 g/dL Normal 12.0 - 16.0 gm/dL [facility] MCH (RBC) [Entitic mass] 29.9 pg Normal 27.0 - 34.0 pg [facility] MCHC (RBC) [Mass/Vol] 34.5 g/dL Normal 31.4 - 36.0 gm/dL [facility] MCV (RBC) [Entitic vol] 86.9 fL Normal 80.0 - 100.0 fL [facility] Platelet mean volume (Bld) [Entitic vol] 8.7 fL Normal 6.4 - 10.8 fL [facility] Platelets (Bld) [#/Vol] 227.0 E9/L Normal 150.0 - 500.0 E9/L [facility] RBC (Bld) [#/Vol] 4.7 E12/L Normal 4.3 - 5.9 E12/L [facility] WBC corrected for nucl RBC Auto (Bld) [#/Vol] 9.4 E9/L Normal 4.0 - 11.0 E9/L [facility] SEROLOGYOrdered By: Corrina guerrero on 10-28-2021 Beta hCG Ql Negative (10/28/21 1:48 PM) Normal [facility] URINALYSISOrdered By: Corrina sumner on 10-28-2021 Bacteria LM Ql (Urine sed) Trace /HPF Normal Trace/HPF [facility] Auto SS Bilirubin Ql (U) Negative (10/28/21 2:40 PM) Normal Negative [facility] UA Auto SS Clarity (U) Clear (10/28/21 2:40 PM) Normal Clear [facility]A Auto SS Color (U) Yellow (10/28/21 2:40 PM) Normal Yellow [facility] UA Auto SS Epithelial cells.squamous LM.HPF (Urine sed) [#/Area] 5-8 /HPF Normal 0-2/HPF [facility]A Auto SS Glucose Test strip (U) [Mass/Vol] Negative (10/28/21 2:40 PM) Normal Negative [facility]A Auto SS Hemoglobin Ql (U) Trace *ABN* (10/28/21 2:40 PM) Invalid Interpretation Code Negative [facility]A Auto SS Ketones (U) [Mass/Vol] Negative (10/28/21 2:40 PM) Normal Negative [facility] UA Auto SS [place].plasma/Lith[place] m.RBC (Bld) [Mass ratio] 0-3 /HPF Normal 0-3/HPF [facility] UA Auto SS Nitrite Ql (U) Negative (10/28/21 2:40 PM) Normal Negative [facility] Auto SS pH (U) 7.0 *NA* (10/28/21 2:40 PM) Invalid Interpretation Code 5.0 - 9.0 [facility] Auto SS Protein (U) [Mass/Vol] Negative (10/28/21 2:40 PM) Normal Negative [facility]A Auto SS Specific gravity (U) [Rel density] 1.010 *NA* (10/28/21 2:40 PM) Invalid Interpretation Code 1.005 - 1.030 [facility] UA Spec Desc Clean Catch (10/28/21 2:40 PM) Normal [facility] Auto SS Urobilinogen Qn (U) 0.3791232 {Ebony'U}/dL Normal 0.0 - 1.0 EU/dL [facility]A Auto SS WBC Auto Ql (U) Negative (10/28/21 2:40 PM) Normal Negative [facility] UA Auto SS WBC LM.HPF (Urine sed) [#/Area] 0-5 /HPF Normal 0-5/HPF [facility] UA Auto SS HCV RNA,Quant,PCRon 02-17-20 19 HCV RNA,Quant,PCR Specimen Description .PLASMA Special Requests QUALITIATIVE Direct Exam HCV RNA DETECTED [id number] IU/ML (5.83 LOG IU/ML) This test is a sensitive method for quantitating HCV RNA viral loads in plasma. It utilizes RT-PCR in the FDA approved [employer] Ampliprep/Taqman 48 System. This test is intended for detecting and quantifying HCV RNA viral loads in the range of 15 IU/mL to 100,000,000 IU/mL (1.18 log IU/mL to 8.00 log IU/mL). Patients should have confirmed HCV infection prior to RNA quantification. This test has been developed to monitor disease progression and efficacy of anti-HCV drug therapy. This test has been optimized for HCV genotypes 1-6. Results reported to the appropriate Health Department Report Status FINAL 02/16/2019 Normal [facility] Comment on above: Performed By: #### H IVCMB, PHEP #### [address] [address] Dismantler: Jus Staton MD #### HCG, CBC, CP #### [address] [place] [address] Dismantler: August Mcmanus MD Hepatitis Be Abon 02-16-2019 Hepatitis Be Ab Negative Normal Negative [facility] Comment on above: Result Comment: (NOT E) Performed by [employer], [address] [facility],[place] [id number] [email or web address], Gavin Galdamez MD, Lab. Director Performed By: #### H IVCMB, PHEP #### [address] [address] Dismantler: Jus Staton MD #### HCG, CBC, CP #### [address] [place] [address] Dismantler: August Mcmanus MD Hepatitis Be Agon 02-16-2019 Hepatitis Be Ag Negative Normal Negative [facility] Comment on above: Result Comment: (NOT E) Performed by [employer], [address] [facility],[place] [id number] [email or web address], Gavin Galdamez MD, Lab. Director Performed By: #### H IVCMB, PHEP #### [address] [address] Dismantler: Jus Staton MD #### HCG, CBC, CP #### [facility] [address] [place] [address] [place] [address] Dismantler: August Mcmanus MD Hep B Surf Abon 02-14-2019 Hep B Surf Ab 174.00 mIU/mL High <10 [facility] Comment on above: Result Comment: REFERENCE RANGE: <10.0 NON-REACTIVE/NOT IMMUNE >=10.0 REACTIVE/IMMUNE The presence of Anti-HBs usually indicates recovery from acute or chronic HBV infection or acquired immunity from HBV vaccination. Positive results (quantitative levels of equal to or greater than 10.0 mIU/mL) indicate an adequate immunity from previous infection, vaccination or immune globulin adminstration. Anti-HBc would help define positivity due to Hepatitis B infection. Performed By: #### H IVCMB, PHEP #### [address] [address] Dismantler: Jus Staton MD #### HCG, CBC, CP #### [facility] [address] [place] [address] [place] [address] Dismantler: August Mcmanus MD Hep B Surf Agon 02-14-2019 Hep B Surf Ag NONREACTIVE Normal NR [facility] Comment on above: Performed By: #### H IVCMB, PHEP #### [address] [id number] Dismantler: Jus Staton MD #### HCG, CBC, CP #### [facility] [address] [place] [address] [place] [address] Dismantler: August Mcmanus MD Hepatitis B Surface Antibody on 02-14-2019 HBV surface Ab (S) [Titer] 174 High <10 mIU/mL [facility] [place] Comment on above: REFERENCE RANGE: <10.0 NON-REACTIVE/NOT IMMUNE >=10.0 REACTIVE/IMMUNE The presence of Anti-HBs usually indicates recovery from acute or chronic HBV infection or acquired immunity from HBV vaccination. Positive results (quantitative levels of equal to or greater than 10.0 mIU/mL) indicate an adequate immunity from previous infection, vaccination or immune globulin adminstration. Anti-HBc would help define positivity due to Hepatitis B infection. Interpretation and review of laboratory results Abnormal [place], [place] Hepatitis B Surface Antigeno n 02-14-2019 Hepatitis B Surface Ag NONREACTIVE NONREACTIVE [place], [place] CBCon 02-09-2019 Erythrocyte distribution width (RBC) [Ratio] 14.7 % High 11.8-14.4 [facility] Comment on above: Performed By: #### H CG, CP, CBC #### [facility] [address] [place] [address] Dismantler: August Mcmanus MD #### PHEJesús, HIVCMB #### [address] [id number] Dismantler: Jus Staton MD Hematocrit (Bld) [Volume fraction] 43.9 % Normal 36.3-47.1 [facility] Comment on above: Performed By: #### H CG, CP, CBC #### [facility] [address] [place] [address] [place] [address] Dismantler: August Mcmanus MD #### PHEJesús, HIVCMB #### [address] [id number] Dismantler: Jus Staton MD Hemoglobin (Bld) [Mass/Vol] 13.9 g/dL Normal 11.9-15.1 [facility] Comment on above: Performed By: #### H CG, CP, CBC #### [facility] [address] [place] [address] [place] [address] Dismantler: August Mcmanus MD #### PHEJesús, HIVCMB #### [address] [id number] Dismantler: Jus Staton MD MCH (RBC) [Entitic mass] 27.5 pg Normal 25.2-33.5 [facility] Comment on above: Performed By: #### H CG, CP, CBC #### [address] [place] [id number] Dismantler: August Mcmanus MD #### PHEP, HIVCMB #### [address] [id number] Dismantler: Jus Staton MD MCHC (RBC) [Mass/Vol] 31.7 g/dL Normal 28.4-34.8 [facility] Comment on above: Performed By: #### H CG, CP, CBC #### [address] [place] [id number] Dismantler: August Mcmanus MD #### PHEP, HIVCMB #### [address] [id number] Dismantler: Jus Staton MD MCV (RBC) [Entitic vol] 86.8 fL Normal 82.6-102.9 [facility] Comment on above: Performed By: #### H CG, CP, CBC #### [address] [place] [id number] Dismantler: August Mcmanus MD #### PHEP, HIVCMB #### [address] [id number] Dismantler: Jus Staton MD NRBC Automated 0.0 per 100 WBC Normal 0.0 [facility] Comment on above: Performed By: #### H CG, CP, CBC #### [address] [place] [address] Dismantler: August Mcmanus MD #### PHEP, HIVCMB #### [address] [id number] Dismantler: Jus Staton MD Platelet mean volume (Bld) [Entitic vol] 12.0 fL Normal 8.1-13.5 [facility] Comment on above: Performed By: #### H CG, CP, CBC #### [facility] [address] [place], [place] [id number] Dismantler: August Mcmanus MD #### PHEP, HIVCMB #### [address] [address] Dismantler: Jus Staton MD Platelets (Bld) [#/Vol] 231 10*3/uL Normal 138-453 [facility] Comment on above: Performed By: #### H CG, CP, CBC #### [facility] [address] [place], [place] [address] Dismantler: August Mcmanus MD #### PHEP, HIVCMB #### [address] [address] Dismantler: Jus Staton MD RBC (Bld) [#/Vol] 5.06 10*6/uL Normal 3.95-5.11 [facility] Comment on above: Performed By: #### H CG, CP, CBC #### [address] [place], [place] [id number] Dismantler: August Mcmanus MD #### PHEP, HIVCMB #### [address] [address] Dismantler: Jus Staton MD WBC (Bld) [#/Vol] 8.0 10*3/uL Normal 3.5-11.3 [facility] Comment on above: Performed By: #### H CG, CP, CBC #### [facility] [address] [place], [place] [phone] Dismantler: August Mcmanus MD #### PHEP, HIVCMB #### [address] [address] Dismantler: Jus Staton MD Erythrocyte distribution width (RBC) [Ratio] 14.7 % High 11.8 - 14.4 % [place] Hematocrit (Bld) [Volume fraction] 43.9 % 36.3 - 47.1 % [place] Hemoglobin (Bld) [Mass/Vol] 13.9 g/dL 11.9 - 15.1 g/dL [place] Interpretation and review of laboratory results Abnormal [place] MCH (RBC) [Entitic mass] 27.5 pg 25.2 - 33.5 pg [place] MCHC (RBC) [Mass/Vol] 31.7 g/dL 28.4 - 34.8 g/dL [place] MCV (RBC) [Entitic vol] 86.8 fL 82.6 - 102.9 fL [place] Platelet mean volume (Bld) [Entitic vol] 12.0 fL 8.1 - 13.5 fL [place] Platelets (Bld) [#/Vol] 231 10*3/uL [place] RBC (Bld) [#/Vol] 5.06 10*6/uL 3.95 - 5.1 1 m/uL [place] WBC (Bld) [#/Vol] 8.0 10*3/uL [place] WBC (Bld) [#/Vol] 0.0 10*3/uL 0.0 per 10 0 WBC [place], [place] Comp Metabolic Profon 2018 AST [Catalytic activity/Vol] 22 U/L Normal <32 [facility] Comment on above: Performed By: #### H CG, CP, CBC #### [facility] [address] [place] [address] Dismantler: August Mcmanus MD #### PHEP, HIVCMB #### [address] [address] Dismantler: Jus Staton MD BUN/CRE Ratio 13 Normal 9-20 [facility] Comment on above: Performed By: #### H CG, CP, CBC #### [address] [place], [place] [phone] Dismantler: August Mcmanus MD #### PHEP, HIVCMB #### [address] [id number] Dismantler: Jus Staton MD Creatinine [Mass/Vol] 0.72 mg/dL Normal 0.50-0.90 [facility] Comment on above: Performed By: #### H CG, CP, CBC #### [address] [place] [address] Dismantler: August Mcmanus MD #### PHEP, HIVCMB #### [address] [id number] Dismantler: Jus Staton MD GFR, Amer >60 Normal >60 [facility] Comment on above: Performed By: #### H CG, CP, CBC #### [address] [place] [id number] Dismantler: August Mcmanus MD #### PHEP, HIVCMB #### [address] [phone] Dismantler: Jus Staton MD GFR,non Amer >60 Normal >60 [facility] Comment on above: Performed By: #### H CG, CP, CBC #### [address] [place] [phone] Dismantler: August Mcmanus MD #### PHEP, HIVCMB #### [address] [id number] Dismantler: Jus Staton MD Staging: Normal [facility] Comment on above: Result Comment: Stag e 1: Some kidney damage normal GFR Stage 2: Mild kidney damage GFR 60-89 Stage 3: Moderate kidney damage GFR 30-59 Stage 4: Severe kidney damage GFR 15-29 Stage 5: Severe kidney damage GFR <15 ESRD - chronic treatment by dialysis or transplant Performed By: #### H KALYANI DAY, CBC #### [address] [place] [address] Dismantler: August Mcmanus MD #### VICK, HIVCMB #### [id number] [place], [place] [id number] Dismantler: Jus Staton MD (cont.) [facility] Comment on above: Result Comment: Aver age GFR for 30-39 years old: 107 mL/min/1.73sq m Chronic Kidney Disease: <60 mL/min/1.73sq m Kidney failure: <15 mL/min/1.73sq m eGFR calculated using average adult body mass. Additional eGFR calculator available at: http://[email or web address]/multiple_crcl_2011.htm Performed By: #### H KALYANI DAY, CBC #### [address] [place] [address] Dismantler: August Mcmanus MD #### PHEJesús, HIVCMB #### [address] [address] [place], [place] [phone] Dismantler: Jus Staton MD Albumin [Mass/Vol] 4.0 g/dL Normal 3.5-5.2 [facility] Comment on above: Performed By: #### H KALYANI DAY, CBC #### [address] [place] [address] Dismantler: August Mcmanus MD #### PHEP, HIVCMB #### [facility] [address] [place], [place] [phone] Dismantler: Jus Staton MD Albumin/Globulin [Mass ratio] 1.2 {ratio} Normal 1.0-2.5 [facility] Comment on above: Performed By: #### H SHAY CP, CBC #### [address] [place] [address] Dismantler: August Mcmanus MD #### PHEP, HIVCMB #### [address] [id number] Dismantler: Jus Staton MD Alkaline Phos 62 U/L Normal 35-104 [facility] Comment on above: Performed By: #### H CG, CP, CBC #### [facility] [address] [place] [id number] Dismantler: August Mcmanus MD #### PHEP, HIVCMB #### [address] [id number] Dismantler: Jus Staton MD ALT [Catalytic activity/Vol] 25 U/L Normal 5-33 [facility] Comment on above: Performed By: #### H CG, CP, CBC #### [address] [place] [id number] Dismantler: August Mcmanus MD #### PHEP, HIVCMB #### [address] [id number] Dismantler: Jus Staton MD Anion gap [Moles/Vol] 15 mmol/L Normal 9-17 [facility] Comment on above: Performed By: #### H CG, CP, CBC #### [address] [place] [id number] Dismantler: August Mcmanus MD #### PHEP, HIVCMB #### [address] [id number] Dismantler: Jus Staton MD Bilirubin Ql (U) 0.25 mg/dL Low 0.3-1.2 [facility] Comment on above: Performed By: #### H CG, CP, CBC #### [address] [place], [place] [id number] Dismantler: August Mcmanus MD #### PHEP, HIVCMB #### [address] [place], [place] 2955608 Dismantler: Jus Staton MD Calcium [Mass/Vol] 9.7 mg/dL Normal 8.6-10.4 [facility] Comment on above: Performed By: #### H CG, CP, CBC #### [facility] [address] [place], [place] [id number] Dismantler: August Mcmanus MD #### PHEP, HIVCMB #### [address] [id number] Dismantler: Jus Staton MD Chloride [Moles/Vol] 103 mmol/L Normal 98-107 [facility] Comment on above: Performed By: #### H CG, CP, CBC #### [facility] [address] [place] [id number] Dismantler: August Mcmanus MD #### PHEP, HIVCMB #### [address] [phone] Dismantler: Jus Staton MD CO2 [Moles/Vol] 24 mmol/L Normal 20-31 [facility] Comment on above: Performed By: #### H CG, CP, CBC #### [facility] [address] [place], [place] [id number] Dismantler: August Mcmanus MD #### PHEP, HIVCMB #### [address] [address] Dismantler: Jus Staton MD Glucose [Mass/Vol] 87 mg/dL Normal 70-99 [facility] Comment on above: Performed By: #### H CG, CP, CBC #### [facility] [address] [place], [place] [id number] Dismantler: August Mcmanus MD #### PHEP, HIVCMB #### [address] [address] Dismantler: Jus Staton MD Potassium [Moles/Vol] 4.4 mmol/L Normal 3.7-5.3 [facility] Comment on above: Performed By: #### H CG, CP, CBC #### [facility] [address] [place] [address] Dr. [place], [place] [id number] Dismantler: August Mcmanus MD #### PHEP, HIVCMB #### [address] [address] Dismantler: Jus Staton MD Protein [Mass/Vol] 7.3 g/dL Normal 6.4-8.3 [facility] Comment on above: Performed By: #### H CG, CP, CBC #### [address] [place] [id number] Dismantler: August Mcmanus MD #### PHEP, HIVCMB #### [address] [address] Dismantler: Jus Staton MD Sodium [Moles/Vol] 142 mmol/L Normal 135-144 [facility] Comment on above: Performed By: #### H CG, CP, CBC #### [address] [place], [place] [id number] Dismantler: August Mcmanus MD #### PHEP, HIVCMB #### [address] [address] Dismantler: Jus Staton MD Urea nitrogen [Mass/Vol] 9 mg/dL Normal 6-20 [facility] Comment on above: Performed By: #### H CG, CP, CBC #### [address] [place], [place] [id number] Dismantler: August Mcmanus MD #### PHEP, HIVCMB #### [address] [place] [address] Dismantler: Jus Staton MD Comprehensive Metabolic Pane ben 02-09-2019 Albumin [Mass/Vol] 4 g/dL 3.5 - 5.2 g/dL [place], [place] Albumin/Globulin [Mass ratio] 1.2 {ratio} [place] ALP [Catalytic activity/Vol] 62 U/L 35 - 104 U/L [place] ALT [Catalytic activity/Vol] 25 U/L 5 - 33 U/L [place] Anion gap [Moles/Vol] 15 mmol/L 9 - 17 mmol/L [place] AST [Catalytic activity/Vol] 22 U/L <32 [place] Bilirubin Ql (U) 0.25 mg/dL Low 0.3 - 1.2 mg/dL [place] Bun/Cre Ratio 13 [place] Calcium [Mass/Vol] 9.7 mg/dL 8.6 - 10. 4 mg/dL [place] Chloride [Moles/Vol] 103 mmol/L 98 - 10 7 mmol/L [place] CO2 [Moles/Vol] 24 mmol/L 20 - 31 mmol/L [place] Creatinine [Mass/Vol] 0.72 mg/dL 0.5 - 0.9 mg/dL [place] GFR >60 >60 mL/min [place] GFR Non- >60 >60 mL/min [place] Glucose [Mass/Vol] 87 mg/dL 70 - 99 mg/dL [place] Interpretation and review of laboratory results Abnormal [place] Potassium [Moles/Vol] 4.4 mmol/L 3.7 - 5.3 mmol/L [place] Protein [Mass/Vol] 7.3 g/dL 6.4 - 8.3 g/dL [place] Sodium [Moles/Vol] 142 mmol/L 135 - 144 mmol/L [place] Urea nitrogen [Mass/Vol] 9 mg/dL 6 - 20 mg/dL [place] HCG Qualitative, Serumon hCG Qual Negative NEGATIVE [place] Comment on above: Specimens with hCG l evels near the threshold of the test (25 mIU/mL) may give a negative or indeterminate result. In such cases, another test should be performed with a new specimen in 48-72 hours. If early is suspected clinically in this setting, correlation with quantitative serum b-hCG level is suggested. [facility] has confirmed the use of plasma for this test. This has not been cleared or approved by the U.S. Food and Drug Administration. The FDA has determined that such clearance is not necessary. HCG Screen, Bloodon 02-10-20 19 HCG Qn Negative Normal NEG [facility] Comment on above: Result Comment: Spec imens with hCG levels near the threshold of the test (25 mIU/mL) may give a negative or indeterminate result. In such cases, another test should be performed with a new specimen in 48-72 hours. If early is suspected clinically in this setting, correlation with quantitative serum b-hCG level is suggested. [facility] has confirmed the use of plasma for this test. This has not been cleared or approved by the U.S. Food and Drug Administration. The FDA has determined that such clearance is not necessary. Performed By: #### H KALYANI DAY, CBC #### [facility] [address] [place] [address] [place] [address] Dismantler: August Mcmanus MD #### VICK, HIVCMB #### [address] [place], [place] [phone] Dismantler: Jus Staton MD HIV Ag/Abon 02-09-2019 HIV Ag/Ab NONREACTIVE Normal NR [facility] Comment on above: Result Comment: No l aboratory evidence of HIV infection. If acute HIV infection is suspected, consider testing for HIV-1 RNA. Performed By: #### H SHAY CP, CBC #### [facility] [address] [place] [address] Dismantler: August Mcmanus MD #### PHEJesús, HIVCMB #### [address] [place] [address] Dismantler: Jus Staton MD HIV Screenon 02-09-2019 HIV Ag/Ab NONREACTIVE NONREACTIVE [place] Comment on above: No laboratory eviden ce of HIV infection. If acute HIV infection is suspected, consider testing for HIV-1 RNA. Hepatitis Acute Krishan 02-09 Hep B Core Ab,IgM EQUIVOCAL Abnormal [facility] Comment on above: Result Comment: EQUI VOCAL IS A BORDERLINE POSITIVE RESULT. IT IS RECOMMENDED THAT PATIENTS EXHIBITING THIS RESULT HAVE TESTING REPEATED IN 10 TO 14 DAYS. Performed By: #### H CG, CP, CBC #### [facility] [address] [place] [address] [place], [place] [phone] Dismantler: August Mcmanus MD #### PHEP, HIVCMB #### [address] [address] Dismantler: Jus Staton MD Hep A Ab,IgM NONREACTIVE Normal [facility] Comment on above: Performed By: #### H CG, CP, CBC #### [facility] [address] [place] [address] [place], [place] [phone] Dismantler: August Mcmanus MD #### PHEP, HIVCMB #### [address] [address] Dismantler: Jus Staton MD Hep B Surf Ag NONREACTIVE Normal [facility] Comment on above: Performed By: #### H CG, CP, CBC #### [facility] [address] [place] [address] [place] [address] Dismantler: August Mcmanus MD #### PHEP, HIVCMB #### [address] [place] [address] Dismantler: Jus Staton MD Hep C Ab REACTIVE Abnormal [facility] Comment on above: Result Comment: The hepatitis C procedure used in our laboratory is a Chemiluminescent test specific for three recombinant HCV antigens. A negative anti-HCV result indicates that the antibodies to hepatitis C virus are not present at this time. Individuals with reactive anti-HCV should be considered infected and infectious until proven otherwise. Confirmation of all equivocal or reactive results is recommended by ordering HCV RNA by PCR. Results reported to the appropriate Health Department Performed By: #### H CG, CP, CBC #### [facility] [address] [place] [address] Dismantler: August Mcmanus MD #### PHEP, HIVCMB #### [facility] [address] [place], [place] [phone] Dismantler: Jus Staton MD Hepatitis Panel, Acuteon HAV IgM IA Qn (S) NONREACTIVE NONREACTIVE [place] Hep B Core Ab, IgM EQUIVOCAL Abnormal NONREACTIVE [place] Comment on above: EQUIVOCAL IS A BORDE RLINE POSITIVE RESULT. IT IS RECOMMENDED THAT PATIENTS EXHIBITING THIS RESULT HAVE TESTING REPEATED IN 10 TO 14 DAYS. Hepatitis B Surface Ag NONREACTIVE NONREACTIVE [place] Hepatitis C Ab REACTIVE Abnormal NONREACTIVE [place] Comment on above: The hepatitis C procedure used in our laboratory is a Chemiluminescent test specific for three recombinant HCV antigens. A negative anti-HCV result indicates that the antibodies to hepatitis C virus are not present at this time. Individuals with reactive anti-HCV should be considered infected and infectious until proven otherwise. Confirmation of all equivocal or reactive results is recommended by ordering HCV RNA by PCR. Results reported to the appropriate Health Department Interpretation and review of laboratory results Abnormal [place] Metabolic Panelon 02-09-2019 GFR/1.73 sq M predicted among non-blacks MDRD (S/P/Bld) [Vol rate/Area] [place] Comment on above: Stage 1: Some kidney damage normal GFR Stage 2: Mild kidney damage GFR 60-89 Stage 3: Moderate kidney damage GFR 30-59 Stage 4: Severe kidney damage GFR 15-29 Stage 5: Severe kidney damage GFR <15 ESRD - chronic treatment by dialysis or transplant Average GFR for 30-3 9 years old: 107 mL/min/1.73sq m Chronic Kidney Disease: <60 mL/min/1.73sq m Kidney failure: <15 mL/min/1.73sq m eGFR calculated using average adult body mass. Additional eGFR calculator available at: http://www.bettermarks.com/multiple_crcl_2012.htm CBCon 07-27-2018 Erythrocyte distribution width (RBC) [Ratio] 15.7 % High 11.8-14.4 [facility] Comment on above: Performed By: #### H IVCMB, PHEP #### [address] [address] Dismantler: Jus Staton MD #### HCG, CBC, CP #### [facility] [address] [place] [address] Dismantler: August Mcmanus MD Hematocrit (Bld) [Volume fraction] 43.9 % Normal 36.3-47.1 [facility] Comment on above: Performed By: #### H IVCMB, PHEP #### [address] [address] Dismantler: Jus Staton MD #### HCG, CBC, CP #### [facility] [address] [place] [address] Dismantler: August Mcmanus MD Hemoglobin (Bld) [Mass/Vol] 13.7 g/dL Normal 11.9-15.1 [facility] Comment on above: Performed By: #### H IVCMB, PHEP #### [address] [id number] Dismantler: Jus Staton MD #### HCG, CBC, CP #### [facility] [address] [place] [address] Dismantler: August Mcmanus MD MCH (RBC) [Entitic mass] 24.8 pg Low 25.2-33.5 [facility] Comment on above: Performed By: #### H IVCMB, PHEP #### [address] [id number] Dismantler: Jus Staton MD #### HCG, CBC, CP #### [address] [place] [phone] Dismantler: August Mcmanus MD MCHC (RBC) [Mass/Vol] 31.2 g/dL Normal 28.4-34.8 [facility] Comment on above: Performed By: #### H IVCMB, PHEP #### [address] [phone] Dismantler: Jus Staton MD #### HCG, CBC, CP #### [address] [place] [phone] Dismantler: August Mcmanus MD MCV (RBC) [Entitic vol] 79.5 fL Low 82.6-102.9 [facility] Comment on above: Performed By: #### H IVCMB, PHEP #### [address] [phone] Dismantler: Jus Staton MD #### HCG, CBC, CP #### [address] [place] [phone] Dismantler: August Mcmanus MD NRBC Automated 0.0 per 100 WBC Normal 0.0 [facility] Comment on above: Performed By: #### H IVCMB, PHEP #### [address] [phone] Dismantler: Jus Staton MD #### HCG, CBC, CP #### [address] [place] [address] Dismantler: August Mcmanus MD Platelet mean volume (Bld) [Entitic vol] 10.8 fL Normal 8.1-13.5 [facility] Comment on above: Performed By: #### H IVCMB, PHEP #### [address] [id number] Dismantler: Jus Staton MD #### HCG, CBC, CP #### [facility] [address] [place] [address] Dismantler: August Mcmanus MD Platelets (Bld) [#/Vol] 308 10*3/uL Normal 138-453 [facility] Comment on above: Performed By: #### H IVCMB, PHEP #### [address] [address] Dismantler: Jus Staton MD #### HCG, CBC, CP #### [facility] [address] [place] [id number] Dismantler: August Mcmanus MD RBC (Bld) [#/Vol] 5.52 10*6/uL High 3.95-5.11 [facility] Comment on above: Performed By: #### H IVCMB, PHEP #### [address] [address] Dismantler: Jus Staton MD #### HCG, CBC, CP #### [facility] [address] [place] [address] Dismantler: August Mcmanus MD WBC (Bld) [#/Vol] 7.8 10*3/uL Normal 3.5-11.3 [facility] Comment on above: Performed By: #### H IVCMB, PHEP #### [address] [address] Dismantler: Jus Staton MD #### HCG, CBC, CP #### [facility] [address] [place] [address] Dismantler: August Mcmanus MD Comp Metabolic Profon 2018 Bilirubin Ql (U) <0.10 Low 0.3-1.2 [facility] Comment on above: Performed By: #### H IVCMB, PHEP #### [address] [phone] Dismantler: Jus Staton MD #### HCG, CBC, CP #### [address] [place] [address] Dismantler: August Mcmanus MD (cont.) [facility] Comment on above: Result Comment: Aver age GFR for 30-39 years old: 107 mL/min/1.73sq m Chronic Kidney Disease: <60 mL/min/1.73sq m Kidney failure: <15 mL/min/1.73sq m eGFR calculated using average adult body mass. Additional eGFR calculator available at: http://www.[employer]/multiple_crcl_2012.htm Performed By: #### H IVCMB, PHEP #### [address] [address] Dismantler: Jus Staton MD #### HCG, CBC, CP #### [address] [place] [address] Dismantler: August Mcmanus MD Albumin [Mass/Vol] 3.6 g/dL Normal 3.5-5.2 [facility] Comment on above: Performed By: #### H IVCMB, PHEP #### [address] [address] Dismantler: Jus Staton MD #### HCG, CBC, CP #### [address] [place] [address] Dismantler: August Mcmanus MD Albumin/Globulin [Mass ratio] 0.9 {ratio} Low 1.0-2.5 [facility] Comment on above: Performed By: #### H IVCMB, PHEP #### [address] [address] Dismantler: Jus Staton MD #### HCG, CBC, CP #### [address] [place], [place] [id number] Dismantler: August Mcmanus MD Alkaline Phos 62 U/L Normal 35-104 [facility] Comment on above: Performed By: #### H IVCMB, PHEP #### [address] [address] Dismantler: Jus Staton MD #### HCG, CBC, CP #### [address] [place], [place] [phone] Dismantler: August Mcmanus MD ALT [Catalytic activity/Vol] 14 U/L Normal 5-33 [facility] Comment on above: Performed By: #### H IVCMB, PHEP #### [address] [address] Dismantler: Jus Staton MD #### HCG, CBC, CP #### [address] [place], [place] 4785483 Dismantler: August Mcmanus MD Anion gap [Moles/Vol] 12 mmol/L Normal 9-17 [facility] Comment on above: Performed By: #### H IVCMB, PHEP #### [address] [address] Dismantler: Jus Staton MD #### HCG, CBC, CP #### [address] [place], [place] 9647983 Dismantler: August Mcmanus MD AST [Catalytic activity/Vol] 15 U/L Normal <32 [facility] Comment on above: Performed By: #### H IVCMB, PHEP #### [address] [address] Dismantler: Jus Staton MD #### HCG, CBC, CP #### [address] [place], [place] [phone] Dismantler: August Mcmanus MD BUN/CRE Ratio 13 Normal 9-20 [facility] Comment on above: Performed By: #### H IVCMB, PHEP #### [facility] [address] [place] [address] Dismantler: Jus Staton MD #### HCG, CBC, CP #### [facility] [address] [place], [place] [id number] Dismantler: August Mcmanus MD Calcium [Mass/Vol] 9.8 mg/dL Normal 8.6-10.4 [facility] Comment on above: Performed By: #### H IVCMB, PHEP #### [address] [address] Dismantler: Jus Staton MD #### HCG, CBC, CP #### [facility] [address] [place] [id number] Dismantler: August Mcmanus MD Chloride [Moles/Vol] 102 mmol/L Normal 98-107 [facility] Comment on above: Performed By: #### H IVCMB, PHEP #### [address] [address] Dismantler: Jus Staton MD #### HCG, CBC, CP #### [facility] [address] [place], [place] 0368583 Dismantler: August Mcmanus MD CO2 [Moles/Vol] 26 mmol/L Normal 20-31 [facility] Comment on above: Performed By: #### H IVCMB, PHEP #### [facility] [address] [place] [address] Dismantler: Jus Staton MD #### HCG, CBC, CP #### [facility] [address] [place] [address] Dismantler: August Mcmanus MD Creatinine [Mass/Vol] 0.99 mg/dL High 0.50-0.90 [facility] Comment on above: Performed By: #### H IVCMB, PHEP #### [address] [address] Dismantler: Jus Staton MD #### HCG, CBC, CP #### [facility] [address] [place], [place] [id number] Dismantler: August Mcmanus MD GFR, Amer >60 Normal >60 [facility] Comment on above: Performed By: #### H IVCMB, PHEP #### [address] [address] Dismantler: Jus Staton MD #### HCG, CBC, CP #### [address] [place] [phone] Dismantler: August Mcmanus MD GFR,non Amer >60 Normal >60 [facility] Comment on above: Performed By: #### H IVCMB, PHEP #### [address] [address] Dismantler: Jus Staton MD #### HCG, CBC, CP #### [address] [place], [place] [phone] Dismantler: August Mcmanus MD Glucose [Mass/Vol] 124 mg/dL High 70-99 [facility] Comment on above: Performed By: #### H IVCMB, PHEP #### [address] [address] Dismantler: Jus Staton MD #### HCG, CBC, CP #### [address] [place] [address] Dismantler: August Mcmanus MD Potassium [Moles/Vol] 4.1 mmol/L Normal 3.7-5.3 [facility] Comment on above: Performed By: #### H IVCMB, PHEP #### [address] [address] Dismantler: Jus Satton MD #### HCG, CBC, CP #### [address] [place], [place] 5752483 Dismantler: August Mcmanus MD Protein [Mass/Vol] 7.4 g/dL Normal 6.4-8.3 [facility] Comment on above: Performed By: #### H IVCMB, PHEP #### [address] [address] Dismantler: Jus Staton MD #### HCG, CBC, CP #### [address] [place] [address] Dismantler: August Mcmanus MD Sodium [Moles/Vol] 140 mmol/L Normal 135-144 [facility] Comment on above: Performed By: #### H IVCMB, PHEP #### [address] [address] Dismantler: Jus Staton MD #### HCG, CBC, CP #### [address] [place] [address] Dismantler: August Mcmanus MD Staging: Normal [facility] Comment on above: Result Comment: Stag e 1: Some kidney damage normal GFR Stage 2: Mild kidney damage GFR 60-89 Stage 3: Moderate kidney damage GFR 30-59 Stage 4: Severe kidney damage GFR 15-29 Stage 5: Severe kidney damage GFR <15 ESRD - chronic treatment by dialysis or transplant Performed By: #### H IVCMB, PHEP #### [address] [address] Dismantler: Jus Staton MD #### HCG, CBC, CP #### [address] [place] [address] Dismantler: August Mcmanus MD Urea nitrogen [Mass/Vol] 13 mg/dL Normal 6-20 [facility] Comment on above: Performed By: #### H IVCMB, PHEP #### [address] [place] [address] Dismantler: Jus Staton MD #### HCG, CBC, CP #### [facility] [address] [place] [address] Dismantler: August Mcmanus MD HCG Screen, Bloodon 07-28-19 19 HCG Qn Negative Normal NEG [facility] Comment on above: Result Comment: Spec imens with hCG levels near the threshold of the test (25 mIU/mL) may give a negative or indeterminate result. In such cases, another test should be performed with a new specimen in 48-72 hours. If early is suspected clinically in this setting, correlation with quantitative serum b-hCG level is suggested. [facility] has confirmed the use of plasma for this test. This has not been cleared or approved by the U.S. Food and Drug Administration. The FDA has determined that such clearance is not necessary. Performed By: #### H IVCMB, PHEP #### [address] [address] Dismantler: Jus Staton MD #### HCG, CBC, CP #### [address] [place] [address] Dismantler: August Mcmanus MD HIV Ag/Abon 07-27-2018 HIV Ag/Ab NONREACTIVE Normal NR [facility] Comment on above: Result Comment: No l aboratory evidence of HIV infection. If acute HIV infection is suspected, consider testing for HIV-1 RNA. Performed By: #### H IVCMB, PHEP #### [address] [id number] Dismantler: Jus Staton MD #### HCG, CBC, CP #### [facility] [address] [place] [address] [place] [address] Dismantler: August Mcmanus MD Hepatitis Acute [facility] 07-27 Hep A Ab,IgM NONREACTIVE Normal [facility] Comment on above: Performed By: #### H IVCMB, PHEP #### [address] [address] Dismantler: Jus Staton MD #### HCG, CBC, CP #### [facility] [address] [place] [address] [place] [address] Dismantler: August Mcmanus MD Hep B Core Ab,IgM REACTIVE Abnormal [facility] Comment on above: Result Comment: THE PRESENCE OF ANTI-HBc IgM TYPICALLY INDICATES AN ACUTE OR RECENT INFECTION WITH HEPATITIS B. THE PATIENT MAY EITHER BE IN THE EARLY STAGES OF INFECTION AND HIGHLY INFECTIOUS OR IN EARLY CONVALESCENCE AND LESS LIKELY TO TRANSMIT THE DISEASE TO CLOSE CONTACTS. HBeAg AND ANTI-HBe WOULD HELP DEFINE THE STAGE OF INFECTION. Results reported to the appropriate Health Department Performed By: #### H IVCMB, PHEP #### [address] [address] Dismantler: Jus Staton MD #### HCG, CBC, CP #### [facility] [address] [place] [address] [place] [address] Dismantler: August Mcmanus MD Hep B Surf Ag NONREACTIVE Normal [facility] Comment on above: Performed By: #### H IVCMB, PHEP #### [address] [address] Dismantler: Jus Staton MD #### HCG, CBC, CP #### [facility] [address] [place] [address] [place] [address] Dismantler: August Mcmanus MD Hep C Ab REACTIVE Abnormal [facility] Comment on above: Result Comment: The hepatitis C procedure used in our laboratory is a Chemiluminescent test specific for three recombinant HCV antigens. A negative anti-HCV result indicates that the antibodies to hepatitis C virus are not present at this time. Individuals with reactive anti-HCV should be considered infected and infectious until proven otherwise. Confirmation of all equivocal or reactive results is recommended by ordering HCV RNA by PCR. Results reported to the appropriate Health Department Performed By: #### H IVCMB, PHEP #### [facility] [address] [place] [address] Dismantler: Jus Staton MD #### HCG, CBC, CP #### [facility] [address] [place] [address] Dismantler: August Mcmanus MD C.trachomatis N.gonorrhoeae DNAon 03-16-2018 C. trachomatis DNA TE+probe Ql (Unsp spec) Negative Normal Negative [facility] [place] N. gonorrhoeae DNA TE+probe Ql (Unsp spec) Negative Normal Negative [facility] [place]) Trichmonas Vaginalis Screen (EIA)on 03-12-2018 Trichomonas Vaginalis Screen (EIA) Negative Normal [facility] ([place], [place]) Wet Prep-Medical Purposes On cortez 03-12-2018 Wet Prep Clue [facility] None Seen Normal [facility] Wet Prep Trichomonas See EIA Normal [facility] Wet Prep Yeast 4+ Abnormal [facility] ([place], [place]) Comment on above: Result Comment: Budd ing Yeast with Hyphae Culture, Genitalon 8 Culture, Genital OR DERED BY: KARRI DUKE: Vagina COLLECTED: 03/11/18 14:54ANTIBIOTICS AT [facility]SH[facility].: RECEIVED : 03/11/18 15:30Culture, Genital FINAL 03/13/18 10:38 No Neisseria species or GP B Beta Streptococci in 48 hours Moderate growth Yeast No further workup Normal [facility] ([place], [place]) Trichomonas vaginalis by AMD on 03-11-2018 Specimen source Nom (Unsp spec) Vaginal swab Normal [facility] ([place], [place]) GC + CHLAMYDIA BY AMPLIFIED DETECTIONon 08-16-2017 CHLAMYDIA TRACH.,AMPLIFIED Negative Normal NEGATIVE [facility] Comment on above: Performed By: #### [facility] ####[facility] [place] [address] N.GONORRHEA,AMPLIFIED Negative Normal NEGATIVE [facility] Comment on above: Performed By: #### [facility] ####[facility] [place] [address] BASIC METABOLIC PANELon - Anion gap 12 mmol/L Normal 10 - 20 [facility] Comment on above: Performed By: #### B MP ####[facility] [place] [address] Bicarbonate (HCO3) 28 mmol/L Normal 21 - 32 [facility] Comment on above: Performed By: #### B MP ####[facility] [place] [address] Calcium 9.7 mg/dL Normal 8.6 - 10.6 [facility] Comment on above: Performed By: #### B MP ####[facility] [place] [address] Chloride 100 mmol/L Normal 98 - 107 [facility] Comment on above: Performed By: #### B MP ####[facility] [place] [address] Creatinine 0.66 mg/dL Normal 0.50 - 1.05 [facility] Comment on above: Performed By: #### B MP ####[facility] [place] [address] eGFR (non-black) mL/min/{1.73_m2} Normal >60 [facility] Comment on above: Performed By: #### B MP ####[facility] [place] [address] Result Comment: CALC ULATIONS OF ESTIMATED GFR ARE PERFORMED USING THE MDRD STUDY EQUATION FOR THE IDMS-TRACEABLE CREATININE METHODS. CLIN CHEM 2007;53:766-72 Glucose mass conc 89 mg/dL Normal 74 - 99 [facility] Comment on above: Performed By: #### B MP ####[facility] [place] [address] Potassium molar conc 3.9 mmol/L Normal 3.5 - 5.3 [facility] Comment on above: Performed By: #### B MP ####[facility] [place] [address] Sodium 136 mmol/L Normal 136 - 145 [facility] Comment on above: Performed By: #### B MP ####[facility] [place] [address] Urea nitrogen 14 mg/dL Normal 6 - 23 [facility] Comment on above: Performed By: #### B MP ####[facility] [place] [address] ABDOMEN AND PELVIS WIT H CONTRASTon 08-14-[address] ABDOMEN AND PELVIS WITH CONTRAST Name: LETICIA RODRIGUEZ STUDY:BD CT ABDOMEN AND PELVIS WITH CONTRAST; 08/14/2017 1:29 pm INDICATION:Signs/Symptoms: RLQ pain, concern for appy. COMPARISON:None. ORDERING CLINICIAN:SASCHA MONTERO TECHNIQUE:CT of the abdomen and pelvis was performed. Standard contiguous axialimages were obtained at 3 mm slice thickness through the abdomen andpelvis. Coronal and sagittal reconstructions at 3 mm slice thicknesswere performed. 87 ml of contrast Optiray 350 were administered intravenously withoutimmediate complication. FINDINGS:LOWER CHEST:There is a 9 mm calcified granuloma within the left lung base. Theremaining lung parenchyma is otherwise unremarkable. The heart isnormal size without pericardial effusion. The distal esophagus isunremarkable. ABDOMEN: LIVER:The liver is normal in size without evidence of focal liver lesions. BILE DUCTS:The intrahepatic and extrahepatic ducts are not dilated. GALLBLADDER:The gallbladder is nondistended and without evidence of radiopaquestones. PANCREAS:The pancreas appears unremarkable without evidence of ductaldilatation or masses. SPLEEN:The spleen is normal in size. There are few punctate calcificationsthroughout the spleen likely representing sequela of priorgranulomatous disease. ADRENAL GLANDS:Bilateral adrenal glands appear normal. KIDNEYS AND URETERS:The kidneys are normal in size and enhance symmetrically. Nohydroureteronephrosis or nephroureterolithiasis is identified. PELVIS: BLADDER:The urinary bladder is decompressed, limited for evaluation. REPRODUCTIVE ORGANS:The uterus is present. There are bilateral Essure devices present. BOWEL:The stomach is unremarkable. The small and large bowel are normal incaliber and demonstrate no wall thickening. The appendix appearsnormal. VESSELS:There is no aneurysmal dilatation of the abdominal aorta. The IVCappears normal. PERITONEUM/RETROPERITONEUM /LYMPH NODES:No free air, no loculated fluid collections. Trace amount of freeintraperitoneal fluid within the pelvis, which is likelyphysiological in nature. There are nonspecific, scatteredsubcentimeter retroperitoneal and mesenteric lymph nodes which arelikely reactive in etiology BONES AND ABDOMINAL WALL:No suspicious osseous lesions are identified. The abdominal wall softtissues appear normal. IMPRESSION:1. No acute abdominopelvic process.2. Nonspecific, subcentimeter mesenteric and retroperitoneal lymphnodes which are felt to be reactive in etiology.3. Bilateral Essure devices for tuboligation are present.4. Left lung base calcified nodule and few punctate calcificationswithin the spleen most consistent with sequelae of priorgranulomatous disease.I personally reviewed the images/study and resident interpretationand I agree with the findings as stated. This study was performed,analyzed, and interpreted at [place], [place].Electronically signed by: EZEKIEL RONDON MD, PHD Normal [facility] CBC AND DIFFERENTIALon 08-14 % AUTOMATED IMMATURE GRAN 0.3 % Normal 0.0 - 0.9 [facility] Comment on above: Result Comment: Perc ent differential counts (%) should be interpreted in the context of the absolute cell counts (cells/L). Performed By: #### C BCDF ####[facility] [place] [address] % NEUTROPHIL 76.8 % Normal 40.0 - 80.0 [facility] Comment on above: Performed By: #### C BCDF ####[facility] [place] [address] Basophils/100 WBC Auto (Bld) 0.2 % Normal 0.0 - 2.0 [facility] Comment on above: Performed By: #### C BCDF ####[facility] [place] [address] Basophils/100 WBC Auto (Bld) 0.02 x10E9/L Normal 0.00 - 0.10 [facility] Comment on above: Performed By: #### C BCDF ####[facility] [place] [address] Eosinophils 0.10 10*3/uL Normal 0.00 - 0.70 [facility] Comment on above: Performed By: #### C BCDF ####[facility] [place] [address] Eosinophils/100 leukocytes 0.9 % Normal 0.0 - 6.0 [facility] Comment on above: Performed By: #### C BCDF ####[facility] [place] [address] Erythrocyte distribution width Auto Ratio (RBC) 14.9 % High 11.5 - 14.5 [facility] Comment on above: Performed By: #### C BCDF ####[facility] [place] [address] Erythrocytes (RBC) 5.17 x10E12/L Normal 4.00 - 5.20 [facility] Comment on above: Performed By: #### C BCDF ####[facility] [place] [address] Hematocrit (HCT) 43.8 % Normal 36.0 - 46.0 [facility] Comment on above: Performed By: #### C BCDF ####[facility] [place] [address] Hemoglobin mass conc (Bld) 15.0 g/dL Normal 12.0 - 16.0 [facility] Comment on above: Performed By: #### C BCDF ####[facility] [place] [address] Lymphocytes 1.84 10*3/uL Normal 1.20 - 4.80 [facility] Comment on above: Performed By: #### C BCDF ####[facility] [place] [address] Lymphocytes/100 leukocytes 15.9 % Normal 13.0 - 44.0 [facility] Comment on above: Performed By: #### C BCDF ####[facility] [place] [address] MCHC mass conc (RBC) 34.2 g/dL Normal 32.0 - 36.0 [facility] Comment on above: Performed By: #### C BCDF ####[facility] [place] [address] MCV 85 fL Normal 80 - 100 [facility] Comment on above: Performed By: #### C BCDF ####[facility] [place] [address] Monocytes 0.68 10*3/uL Normal 0.10 - 1.00 [facility] Comment on above: Performed By: #### C BCDF ####[facility] [place] [address] Monocytes/100 leukocytes 5.9 % Normal 2.0 - 10.0 [facility] Comment on above: Performed By: #### C BCDF ####[facility] [place] [address] Neutrophils 8.90 10*3/uL High 1.20 - 7.70 [facility] Comment on above: Performed By: #### C BCDF ####[facility] [place] [address] Nucleated erythrocytes 0.0 /100 WBC Normal 0.0-0.0 [facility] Comment on above: Performed By: #### C BCDF ####[facility] [place] [address] Platelets 216 10*3/uL Normal 150 - 450 [facility] Comment on above: Performed By: #### C BCDF ####[facility] [place] [address] WBC (Leukocytes) 11.6 10*3/uL High 4.4 - 11.3 [facility] Comment on above: Performed By: #### C BCDF ####[facility] [place] [address] GC + CHLAMYDIA BY AMPLIFIED DETECTIONon 08-14-2017 Lab Specimen Source Genital vaginal Normal [facility] Comment on above: Performed By: #### G CCHA ####[facility] [place] [address] HEPATIC FUNCTION PANELon Alanine aminotransferase (ALT) 48 U/L High 7 - 45 [facility] Comment on above: Result Comment: Carmen ents treated with Sulfasalazine may generate falsely decreased results for ALT. Performed By: #### H EPFP ####[facility] [place] [address] Albumin 4.8 g/dL Normal 3.4 - 5.0 [facility] Comment on above: Performed By: #### H EPFP ####[facility] [place] [address] Alkaline phosphatase (ALP) 69 U/L Normal 33 - 110 [facility] Comment on above: Performed By: #### H EPFP ####[facility] [place] [address] Aspartate aminotransferase (AST) 23 U/L Normal 9 - 39 [facility] Comment on above: Performed By: #### H EPFP ####[facility] [place] [address] Bilirubin (direct) 0.1 mg/dL Normal 0.0 - 0.3 [facility] Comment on above: Performed By: #### H EPFP ####[facility] [place] [address] Bilirubin (total) 0.7 mg/dL Normal 0.0 - 1.2 [facility] Comment on above: Performed By: #### H EPFP ####[facility] [place] [address] Protein 7.8 g/dL Normal 6.4 - 8.2 [facility] Comment on above: Performed By: #### H EPFP ####[facility] [place] [address] LIPASEon 08-14-2017 Lipase 25 U/L Normal 9 - 82 [facility] Comment on above: Result Comment: Nelsy puncture immediately after or during the administration of Metamizole may lead to falsely low results. Testing should be performed immediately prior to Metamizole dosing. Performed By: #### L IPAS ####[facility] [place] [address] Provider Note - EDon 018 Provider Note - ED Time Seen:? Time See n 14-Aug-2017 10:46Triage Vital Signs:? Triage Information Most recent Vital Sign Value Date Temp (F): 97.7 08-14-2017 09:25 Temp (C): 36.5 08-14-2017 09:25 Heart Rate (beats/min): 99 08-14-2017 09:25 Respirations (breaths/min): 16 08-14-2017 09:25 SpO2 (%): 98 08-14-2017 09:25 BP Systolic (mm Hg): 114 08-14-2017 09:25 BP Diastolic (mm Hg): 72 08-14-2017 09:25History of Present Illness:This 36 year old Female presents with complaint(s) of nausea, vomiting,diarrhea(1)pt. presents with suprapubic pain, N/V, and diarrhea that startedaround 1800. unable to hold anything down. additionally c/o chills.(1)History of Presenting Illness - Additional:? Complaint Patient is a 36-year-old female presenting to the ED with rightlower quadrant abdominal pain as well as one episode of vomiting and 1 episodeof nonbloody diarrhea. She states that she does currently feel nauseous. Shestates her symptoms started last night. She describes abdominal pain as asharp pain that comes and goes. She has not been able to tolerate anything bymouth due to her nausea. She denies ever feeling this way before. She deniesany sick contacts or new foods. She denies any recent travel, drinkinguntreated water, eating undercooked foods. She denies any dysuria, hematuria,urinary frequency. Patient does endorse having white vaginal discharge for thepast 2 weeks. She is sexually active with 2 partners and does not always useprotection. She is . Patient is concerned about STDs today and statesthat one of her partners told her that they had either gonorrhea or chlamydia.She is unsure which one and a half. Patient wanted empiric treatment today forSTDs. She does not want HIV and syphilis testing, stating that she's hadnegative tests in the past. Patient does have a past medical history of herpeswhich she takes Valtrex daily and does not have any outbreaks anymore. Patientdoes have a history of chlamydia several years ago which was successfullytreated. She endorses subjective chills at home she denies any fevers. Shedenies any chest pain, shortness of breath, headache, lightheadedness,generalize d fatigue, paresthesias, weakness.PMH: genital herpesPSH: uterine cryotherapy for CAmeds: valtrexAllergy, Intolerance, Adverse Event: Allergies:? Nubain: Drug, Other, ActiveOutpatient Medication, Review/Add Medications:* Outpatient Medication Status not yet specifiedSmoking Status: current every day smokerAlcohol Use: deniesDrug Use: deniesHISTORY ATTESTATION:? Attestation I have reviewed and confirmed nurse's/medic's notes forpatient'smedications, allergies, medical history, and surgical historyReview of Systems:? All Other Systems all other systems reviewed and are negativeVital Signs:? Objective Information T P R BP SpO2 O2(LPM) %FiO2 [id number] 09:25:00- 36.5 99 16 114/72 98room air, no respiratorysupportPHYSICAL EXAM:? Physical Examination:General: Vitals noted, no distress. Afebrile.EENT: PERRLA, EOM's intact. Eyes unremarkable. Posterior oropharynxunremarkable.Car diac: Regular, rate, rhythm, no murmur.Pulmonary: Lungs clear bilaterally with good aeration. No adventitious breathsounds.Abdomen: TTP RLQ, soft, nonsurgical. No peritoneal signs. Normoactive bowelsounds.Pelvic Exam: Speculum exam shows no lesions on the cervix. Moderate amount ofthin white vaginal discharge. No bleeding. Closed cervical os. Bimanual examshows no adnexal pain or mass. No cervical motion tenderness.Extremities: No peripheral edema. Negative Homans bilaterally, no cords.Skin: No rash.Neuro: No focal neurologic deficits noted. Pt is A&O x3, speech is clear,moves all extremities independently sensation is intact.CURRENT ORDERS/TRUST MANAGER ASSISTANT:? Dicyclomine, Capsule (BENTYL) DOSE = 20 mg Oral Once, Completed, 14-Aug-2017, 14-Aug-2017, Standard? Ondansetron Injectable, (ZOFRAN) DOSE = 4 mg IntraVenous Push Once, Completed, 14-Aug-2017, 14-Aug-2017,Standard? Azithromycin, Tablet (ZITHROMAX) DOSE = 1,000 mg Oral Once, Completed, 14-Aug-2017, 14-Aug-2017, Standard? cefTRIAXone Injectable, (ROCEPHIN) DOSE = 250 mg IntraMuscular Once, Completed, 14-Aug-2017, 14-Aug-2017,Standard? metroNIDAZOLE, Tablet (FLAGYL) DOSE = 2,000 mg Oral Once, Completed, 14-Aug-2017, 14-Aug-2017, Standard? Sodium Chloride 0.9% IV Bolus, DOSE = 1,000 mL Once Infuse over 1 hour(s), Active, 14-Aug-2017, 14-Aug-2018, Standard? Urinalysis, Floor to Collect - STAT Urine Container-Refrigerate, Final Results, 14-Aug-2017, Standard? Gonorrhea + Chlamydia, Nucleic Acid Det., Vaginal (GENV) - Floor toCollect-Routine -Collect in Aptima tube or Thin Prep. Urine stable in clean catch vial for 24hours., Received/Pending Result, 14-Aug-2017, Standard? Wet Prep. w/Reflex to Trich. by Amp Det., Floor to Collect -vaginal- STAT -Collect both the wet prep swab and the Aptima Swab/Urine collection kit,Final Results, 14-Aug-2017, Standard? Basic Metabolic Panel, Floor to Collect - STAT SST (Serum Separator) Tube, Received/Pending Result, 14-Aug-2017, Standard? Complete Blood Count + Differential, Floor to Collect - STAT Lavender Top Tube, Received/Pending Result, 14-Aug-2017, Standard? Hepatic Function Panel, Floor to Collect - STAT SST (Serum Separator) Tube, Received/Pending Result, 14-Aug-2017, Standard? Lipase, Serum, Floor to Collect - STAT SST (Serum Separator) Tube, Received/Pending Result, 14-Aug-2017, Standard? CT Abdomen and Pelvis with Contrast, Intravenous; Critical/STAT (within1-3hrs) Special Instructions: IV Contrast Only, Pending, 14-Aug-2017, Standard? IV, Insert, Once, Active, 14-Aug-2017, Standard? Urine Test POCT, Once, Active, 14-Aug-2017, Standard? Communication Order for CT Exam, Please have the patient in a gown free ofall exterior clothing and bra. As well as jewelry, piercings,hair pins,wigs,and hearing aids removed, Active, 14-Aug-2017, StandardMedical Decision Making:? ED Course/Treatment PlanPatient is a 36-year-old female presenting to the ED with suprapubic abdominalpain as well as nausea vomiting diarrhea. She was given IV fluids as well asZofran. Pelvic examination was performed and the patient was found to havevaginal discharge. Wet prep was positive for Trichomonas. Patient wasempirically treated today with Flagyl, Rocephin, and azithromycin for STDs.Patient was told that she would get the results of her gonorrhea and chlamydiain 2-3 days. Phone calls anything is positive. She was advised to remainsexually active for one week after both her and her partner have beensuccessfully treated. She voiced her understanding of this. She was told tofollow-up with the women's health clinic. Patient was able to tolerate bymouth intake here in the emergency department. She'll be discharged home witha prescription for Zofran. Patient was told to return to the emergencydepartment with a new or worsening symptoms. She was in agreement with thisplan. She'll be discharged home in stable condition. She'll have any furtherquestions or concerns at this time.Diagnoses/Visit Problems:? Gastroenteritis:? Vaginal trichomoniasis:DISCHARGE DISPOSITION:? Disposition: discharged? Discharge Type: homeCONDITION ON DISPO:? Condition on Disposition improvedMEDICATION RECONCILIATION/DISCHARGE MEDS:* Outpatient Medication Status not yet specified IBU 600 mg oral tablet: 1 tab(s) orally 4 times a day PRN pain , Start Date:14-Aug-2017, Stop Date: 18-Aug-2017, Quantity: 20, Refills: None, Submitted By:Sascha Montero Zofran ODT 4 mg oral tablet, disintegratin tab(s) orally 3 times a day ,Start Date: 14-Aug-2017, Stop Date: 17-Aug-2017, Quantity: 12, Refills: None,Submitted By: Sascha Montero EAttestation:CRITICAL CARE:? Is This a Critically Ill Patient noCo-Sign/Attestation:Atte station: Supervising physician on site, available for consultation,non-participa debra in the evaluation of the care of this patient.Electronic Signatures:Sascha Montero (PAC) (Signed 14-Aug-2017 17:26) Authored: Time Seen / ED Notes, Triage Vital Signs, History of PresentIllness, Patient History, History Attestation, ROS, Vital Signs, Physical Exam,Current Orders/Apprentice Cosmetologist, Medical Decision Making, ED Disposition(REQUIRED), AttestationLast Updated: 14-Aug-2017 17:26 by Sascha Montero (PAC)References:1. Data Referenced From Triage - ED 08/14/2017 9:25 AM Normal [facility] Triage - EDon 08-14-2017 Triage - ED Pain:Pain Rating (0- 10): Rest 2Chart Review:CHIEF COMPLAINTLETICIA RODRIGUEZ is a Female patient with a chief complaint of nausea, vomiting,diarrhea.Other Complaints: pt. presents with suprapubic pain, N/V, and diarrhea thatstarted around 1800. unable to hold anything down. additionally c/o chills.Triage Date/Time: 14-Aug-2017 09:25Pain Rating (0-10): Rest: 2Vital Signs:Temperature: 97.7F ( 36.5C) taken temporalBlood Pressure: 114/72 Mean:Heart Rate: 99Respiratory Rate: 16Pulse Oximetry: 98% on room air, no respiratory support. Height: 5 feet 6.00inches. 167.6 CMWeight: 128.0 pounds. Calculated 58.0 kg. (stated)Calculated BMI (kg/m2): 20.648 Calculated BSA (m2) 1.64Cough lasting greater than 3 weeks: noTravel outside of [place]: noPatient has suicidal thoughts: noPatient has homicidal thoughts: noESI: 3VPAINPain Scale Used: WILDAPast Medical History:? Past Medical History Reviewed yesElectronic Signatures:Vaishnavi Soriano) (Signed 14-Aug-2017 09:29) Authored: Triage, Past Medical HistoryLast Updated: 14-Aug-2017 09:29 by Vaishnavi Soriano) Normal [facility] URINALYSISon 08-14-2017 Bilirubin (total) Negative Normal NEGATIVE [facility] Comment on above: Performed By: #### U A ####[facility] [place] [address] BLOOD Negative Normal NEGATIVE [facility] Comment on above: Performed By: #### U A ####[facility] [place] [address] Glucose mass conc Negative Normal NEGATIVE [facility] Comment on above: Performed By: #### U A ####[facility] [place] [address] pH of blood 7.0 [pH] Normal 5.0 - 8.0 [facility] Comment on above: Performed By: #### U A ####[facility] [place] [address] Protein Negative Normal NEGATIVE [facility] Comment on above: Performed By: #### U A ####[facility] [place] [address] Urine, appearance HAZY Normal CLEAR [facility] Comment on above: Performed By: #### U A ####[facility] [place] [address] Urine, color YELLOW Normal STRAW,YELLOW [facility] Comment on above: Performed By: #### U A ####[facility] [place] [address] Urine, ketones presence Negative Normal NEGATIVE [facility] Comment on above: Performed By: #### U A ####[facility] [place] [address] Urine, leukocyte esterase presence Negative Normal NEGATIVE [facility] Comment on above: Performed By: #### U A ####[facility] [place] [address] Urine, nitrite presence Negative Normal NEGATIVE [facility] Comment on above: Performed By: #### U A ####[facility] [place] [address] Urine, specific gravity 1.024 Normal 1.005 - 1.035 [facility] Comment on above: Performed By: #### U A ####[facility] [place] [address] Urine, urobilinogen <2.0 Normal 0.0 - 1.9 [facility] Comment on above: Performed By: #### U A ####[facility] [place] [address] WET PREP W/ TRICHOMONAS REFL EX IF NEGon 08-14-2017 CLUE CELLS NONE SEEN Normal [facility] Comment on above: Performed By: #### W ETPX ####[facility] [place] [address] TRICHOMONAS PRESENT Abnormal Negative [facility] Comment on above: Performed By: #### W ETPX ####[facility] [place] [address] Urine, yeast presence in sediment NONE SEEN Normal [facility] Comment on above: Performed By: #### W ETPX ####[facility] [place] [address] WBC (Leukocytes) 9-20 Normal [facility] Comment on above: Performed By: #### W ETPX ####[facility] [place] [address] Lab Specimen Source Normal [facility] Comment on above: Performed By: #### W ETPX ####[facility] [place] [address] Vital Signs Date Time Vital Sign Value Performing Clinician Facility 12-13-2024 00:12-0400 Diastolic blood pressure 94 mm[Hg] Ankit Parker DO Work Phone: [facility] 12-13-2024 00:12-0400 Heart rate 80 /min Ankit Parker DO Work Phone: [facility] 12-13-2024 00:12-0400 Respiratory rate 16 /min Ankit Parker DO Work Phone: [facility] 12-13-2024 00:12-0400 SaO2% (BldA) [Mass fraction] 97 % Ankit Keister DO Work Phone: [facility] 12-13-2024 00:12-0400 Systolic blood pressure 145 mm[Hg] Ankit Keister DO Work Phone: [facility] 12-12-2024 19:50-0400 Body height 162.56 cm Ankit Keister DO Work Phone: [facility] 12-12-2024 19:50-0400 Body temperature 98.6 [degF] Ankit Keister DO Work Phone: [facility] 12-12-2024 19:50-0400 Body weight 57.7 kg Ankit Keister DO Work Phone: [facility] 12-10-2024 07:30-0400 Body temperature 98 [degF] Ankit Keister DO Work Phone: [facility] 12-10-2024 07:30-0400 Diastolic blood pressure 73 mm[Hg] Ankit Keister DO Work Phone: [facility] 12-10-2024 07:30-0400 Heart rate 67 /min Ankit Keister DO Work Phone: [facility] 12-10-2024 07:30-0400 Respiratory rate 16 /min Ankit Keister DO Work Phone: [facility] 12-10-2024 07:30-0400 SaO2% (BldA) [Mass fraction] 96 % Ankit Keister DO Work Phone: [facility] 12-10-2024 07:30-0400 Systolic blood pressure 126 mm[Hg] Ankit Keister DO Work Phone: [facility] 12-08-2024 12:39-0400 Body height 167.64 cm Ankit Keister DO Work Phone: [facility] 12-07-2024 17:39-0400 Body weight 61.23 kg Ankit Keister DO Work Phone: [facility] 12-07-2024 11:36-0400 Heart rate 82 /min Ankit Parker DO Work Phone: [facility] 12-07-2024 09:57-0400 Diastolic blood pressure 89 mm[Hg] Ankit Parker DO Work Phone: [facility] 12-07-2024 09:57-0400 Systolic blood pressure 137 mm[Hg] Ankit Parker DO Work Phone: [facility] 12-07-2024 08:42-0400 Respiratory rate 18 /min Ankit Parker DO Work Phone: [facility] 12-07-2024 07:44-0400 Body temperature 98 [degF] Ankit Parker DO Work Phone: [facility] 12-07-2024 07:44-0400 SaO2% (BldA) [Mass fraction] 98 % Ankit Parker DO Work Phone: [facility] 12-07-2024 07:42-0400 Body height 167.64 cm Ankit Parker DO Work Phone: [facility] 12-07-2024 07:42-0400 Body weight 58.96 kg Ankit Parker DO Work Phone: [facility] 12-25-2023 10:24-0400 Body height 167.6 cm Jeri Fernandez MD Work Phone: [facility] 12-25-2023 10:24-0400 Body mass index (BMI) [Ratio] 22.44 kg/m2 Jeri Fernandez MD Work Phone: [facility] 12-25-2023 10:24-0400 Body weight 63.05 kg Jeri Fernandez MD Work Phone: [facility] 12-25-2023 10:24-0400 Diastolic blood pressure 56 mm[Hg] Jeri Fernandez MD Work Phone: [facility] 12-25-2023 10:24-0400 Systolic blood pressure 73 mm[Hg] Jeri Fernandez MD Work Phone: [facility] 12-07-2023 17:39-0400 Body temperature 96.98 [degF] [facility] 12-07-2023 17:39-0400 Diastolic blood pressure 80 mm[Hg] [facility] 12-07-2023 17:39-0400 Heart rate 77 /min [facility] 12-07-2023 17:39-0400 SaO2% (BldA) [Mass fraction] 98 % [facility] 12-07-2023 17:39-0400 Systolic blood pressure 122 mm[Hg] [facility] 11-13-2023 13:54-0400 Heart rate 73 /min Jame Nelli [facility] 11-13-2023 13:54-0400 SaO2% (BldA) [Mass fraction] 95 % Jame Nelli [facility] 11-13-2023 13:54-0400 Respiratory rate 15 /min Jame Nelli [facility] 11-13-2023 13:54-0400 Diastolic blood pressure 88 mm[Hg] Jame Aiken [facility] 11-13-2023 13:54-0400 Mean blood pressure 102 mm[Hg] Jame Nelli [facility] 11-13-2023 13:54-0400 Systolic blood pressure 129 mm[Hg] Jame Aiken [facility] 11-13-2023 13:00-0400 Body temperature 98.24 [degF] Jame Aiken [facility] 11-13-2023 12:07-0400 Blood Pressure Location Jame Aiken [facility] 11-13-2023 12:07-0400 Body temperature 97.7 [degF] Jame Aiken [facility] 11-13-2023 12:07-0400 Diastolic blood pressure 74 mm[Hg] Jame Aiken [facility] 11-13-2023 12:07-0400 Heart rate 64 /min Jame Aiken [facility] 11-13-2023 12:07-0400 Mean blood pressure 89 mm[Hg] Jame Aiken [facility] 11-13-2023 12:07-0400 Respiratory rate 16 /min Jame Aiken [facility] 11-13-2023 12:07-0400 SaO2% (BldA) [Mass fraction] 97 % Jame Aiken [facility] 11-13-2023 12:07-0400 Systolic blood pressure 120 mm[Hg] Jame Aiken [facility] 11-13-2023 12:05-0400 Blood Pressure Location Jame Aiken [facility] 11-13-2023 12:05-0400 Body temperature 97.7 [degF] Jame Aiken [facility] 11-13-2023 12:05-0400 Diastolic blood pressure 85 mm[Hg] Jame Aiken [facility] 11-13-2023 12:05-0400 Heart rate 61 /min Jame Aiken [facility] 11-13-2023 12:05-0400 Mean blood pressure 100 mm[Hg] Jame Aiken [facility] 11-13-2023 12:05-0400 Respiratory rate 12 /min Jame Aiken [facility] 11-13-2023 12:05-0400 SaO2% (BldA) [Mass fraction] 99 % Jame Aiken [facility] 11-13-2023 12:05-0400 Systolic blood pressure 130 mm[Hg] Jame Aiken [facility] 11-13-2023 11:50-0400 Blood Pressure Location Jame Aiken [facility] 11-13-2023 11:50-0400 Mean blood pressure 104 mm[Hg] Jame Aiken [facility] 11-13-2023 11:50-0400 Respiratory rate 16 /min Jame Aiken [facility] 11-13-2023 07:30-0400 Mean blood pressure 103 mm[Hg] Jame Aiken [facility] 11-13-2023 07:29-0400 Respiratory rate 16 /min Jame Aiken [facility] 11-13-2023 07:29-0400 Body temperature 97.88 [degF] Jame Aiken [facility] 11-13-2023 07:29-0400 Mean blood pressure 99 mm[Hg] Jame Aiken [facility] 11-03-2023 15:28-0400 Respiratory rate 16 /min Jame Aiken [facility] 11-03-2023 15:27-0400 Diastolic blood pressure 83 mm[Hg] Jame Aiken [facility] 11-03-2023 15:27-0400 Heart rate 80 /min Jame Aiken [facility] 11-03-2023 15:27-0400 Mean blood pressure 97 mm[Hg] Jame Aiken [facility] 11-03-2023 15:27-0400 Systolic blood pressure 124 mm[Hg] Jame Aiken [facility] 11-03-2023 15:27-0400 Heart rate 81 /min Jame Aiken [facility] 11-03-2023 15:27-0400 SaO2% (BldA) [Mass fraction] 100 % Jame Aiken [facility] 11-03-2023 15:26-0400 Diastolic blood pressure 79 mm[Hg] Jame Aiken [facility] 11-03-2023 15:26-0400 Mean blood pressure 95 mm[Hg] Jame Aiken [facility] 11-03-2023 15:26-0400 Systolic blood pressure 126 mm[Hg] Jame Aiken [facility] 10-10-2023 22:00-0400 Diastolic blood pressure 89 mm[Hg] Carlos Alberto Quiroz [facility] 10-10-2023 22:00-0400 Heart rate 59 /min Carlos Alberto Quiroz [facility] 10-10-2023 22:00-0400 Mean blood pressure 102 mm[Hg] Carlos Alberto Quiroz [facility] 10-10-2023 22:00-0400 SaO2% (BldA) [Mass fraction] 98 % Carlos Alberto Quiroz [facility] 10-10-2023 22:00-0400 Systolic blood pressure 129 mm[Hg] Carlos Alberto Quiroz [facility] 10-10-2023 21:00-0400 Diastolic blood pressure 90 mm[Hg] Carlos Alberto Frenche [facility] 10-10-2023 21:00-0400 Heart rate 68 /min Carlos Alberto Frenche [facility] 10-10-2023 21:00-0400 Mean blood pressure 106 mm[Hg] Carlos Alberto Frenche [facility] 10-10-2023 21:00-0400 Systolic blood pressure 137 mm[Hg] Carlos Alberto Frenche [facility] 10-10-2023 20:00-0400 Diastolic blood pressure 97 mm[Hg] Carlos Alberto Frenche [facility] 10-10-2023 20:00-0400 Heart rate 72 /min Carlos Alberto Frenche [facility] 10-10-2023 20:00-0400 Mean blood pressure 111 mm[Hg] Carlos Alberto Frenche [facility] 10-10-2023 20:00-0400 SaO2% (BldA) [Mass fraction] 100 % Carlos Alberto Frenche [facility] 10-10-2023 20:00-0400 Systolic blood pressure 140 mm[Hg] Carlos Alberto Frenche [facility] 10-10-2023 18:12-0400 Body temperature 98.96 [degF] Carlos Alberto Frenche [facility] 10-10-2023 18:12-0400 Heart rate 83 /min Carlos Alberto Frenche [facility] 10-10-2023 18:12-0400 Respiratory rate 16 /min Carlos Alberto Frenche [facility] 10-27-2022 18:28-0400 Blood Pressure Location Elpidio Mederos [facility] 10-27-2022 18:28-0400 Body temperature 98.24 [degF] Elpidio Mederos [facility] 10-27-2022 18:28-0400 Diastolic blood pressure 76 mm[Hg] Elpidio Mederos [facility] 10-27-2022 18:28-0400 Heart rate 85 /min Elpidio Mederos [facility] 10-27-2022 18:28-0400 SaO2% (BldA) [Mass fraction] 100 % Elpidio Mederos [facility] 10-27-2022 18:28-0400 Systolic blood pressure 114 mm[Hg] Elpidio Mederos [facility] 10-28-2021 16:20-0400 Diastolic blood pressure 91 mm[Hg] Carlos Alberto Quiroz [facility] 10-28-2021 16:20-0400 Heart rate 71 /min Carlos Alberto Quiroz [facility] 10-28-2021 16:20-0400 Mean blood pressure 103 mm[Hg] Carlos Alberto Quiroz [facility] 10-28-2021 16:20-0400 Respiratory rate 13 /min Carlos Alberto Quiroz [facility] 10-28-2021 16:20-0400 SaO2% (BldA) [Mass fraction] 97 % Carlos Alberto Quiroz [facility] 10-28-2021 16:20-0400 Systolic blood pressure 127 mm[Hg] Carlos Alberto Frenche [facility] 10-28-2021 15:59-0400 Hourly Rounding Carlos Alberto Quiroz [facility] 10-28-2021 15:59-0400 Promise to Return Carlos Alberto Richie [facility] 10-28-2021 15:25-0400 Diastolic blood pressure 87 mm[Hg] Carlos Alberto Richie [facility] 10-28-2021 15:25-0400 Heart rate 67 /min Carlos Alberto Richie [facility] 10-28-2021 15:25-0400 Mean blood pressure 98 mm[Hg] Carlos Alberto Richie [facility] 10-28-2021 15:25-0400 Respiratory rate 12 /min Carlos Alberto Richie [facility] 10-28-2021 15:25-0400 SaO2% (BldA) [Mass fraction] 100 % Carlos Alberto Richie [facility] 10-28-2021 15:25-0400 Systolic blood pressure 121 mm[Hg] Carlos Alberto Richie [facility] 10-28-2021 14:57-0400 Hourly Rounding Carlos Alberto Richie [facility] 10-28-2021 14:57-0400 Promise to Return Carlos Alberto Richie [facility] 10-28-2021 14:56-0400 Diastolic blood pressure 90 mm[Hg] Carlos Alberto Richie [facility] 10-28-2021 14:56-0400 Heart rate 74 /min Carlos Alberto Richie [facility] 10-28-2021 14:56-0400 Mean blood pressure 104 mm[Hg] Carlos Alberto Richie [facility] 10-28-2021 14:56-0400 Respiratory rate 13 /min Carlos Alberto Richie [facility] 10-28-2021 14:56-0400 SaO2% (BldA) [Mass fraction] 99 % Carlos Alberto Quiroz [facility] 10-28-2021 14:56-0400 Systolic blood pressure 131 mm[Hg] Carlos Alberto Quiroz [facility] 10-28-2021 13:45-0400 Hourly Rounding Carlos Alberto Quiroz [facility] 10-28-2021 13:45-0400 Promise to Return Carlos Alberto Quiroz [facility] 10-28-2021 13:38-0400 Body temperature 98.42 [degF] Carlos Alberto Quiroz [facility] 10-28-2021 13:38-0400 Heart rate 76 /min Carlos Alberto Quiroz [facility] 10-28-2021 13:38-0400 Respiratory rate 16 /min Carlos Alberto Quiroz [facility] Encounters Encounter Date Encounter Type Care Provider Facility Start: 12-12-2024 End: 12-13-2024 Emergency department patient visit Ankit Parker DO Work Phone: -Emergency Room Work Phone: Start: 12-07-2024 End: 12-10-2024 Evaluation and management of inpatient Bahman Jones MD -[address] [place] [address] Work Phone: Start: 12-07-2024 Non-patient / Non-visit Bahman song MD -[facility] Work Phone: Start: 07-22-2024 End: 07-23-2024 ambulatory [facility] Facility:[facility] Start: 12-25-2023 End: 12-25-2023 Bamboo flowsger Fernandez MD Work Phone: [facility] Start: 12-25-2023 End: 12-25-2023 Bamboo flowsger Fernandez MD Work Phone: [facility] Start: 12-25-2023 End: 12-25-2023 ambulatory JERI FERNANDEZ Not Available Start: 12-25-2023 End: 12-25-2023 Office outpatient visit 25 minutes Jeri Fernandez MD Work Phone: [facility] Comment on above: Facial abscess (Prim eliot Dx) Start: 12-14-2023 End: 12-14-2023 ambulatory JERI FERNANDEZ Not Available Start: 12-07-2023 End: 12-07-2023 ambulatory Abisai Wang Facility:[facility] Start: 12-07-2023 End: 12-07-2023 Patient encounter procedure Abisai Wang [facility] Start: 11-13-2023 End: 11-13-2023 Admission to same day surgery center [facility] Clementina Aiken [facility] Start: 11-13-2023 End: 11-13-2023 ambulatory AIMEE ADAIR Facility:[facility] Start: 11-03-2023 End: 11-03-2023 ambulatory Jame Aiken Facility:[facility] Start: 11-03-2023 End: 11-03-2023 Patient encounter procedure Jame Aiken [facility] Start: 10-12-2023 End: 10-12-2023 ambulatory Jame Aikne Facility:[facility] Start: 10-10-2023 End: 10-10-2023 Emergency department patient visit Carlos Alberto Quiroz [facility] Start: 09-29-2023 End: 09-29-2023 ambulatory Vida Guevara Facility:[facility] Start: 09-29-2023 End: 09-29-2023 Patient encounter procedure Vida Guevara [facility] Start: 09-18-2023 End: 09-18-2023 ambulatory Vida Guevara Facility:[facility] Start: 09-18-2023 End: 09-18-2023 Lab Drop off Vida Guevara [facility] Start: 09-18-2023 End: 11-01-2023 Pre-admission assessment Vida Guevara [facility] Start: 09-10-2023 End: 09-10-2023 ambulatory AIMEE CATRACHITO Facility:[facility] Start: 09-10-2023 End: 09-10-2023 Patient encounter procedure AIMEE ADAIR [facility] Start: 12-10-2022 End: 12-10-2022 Emergency department patient visit [facility] [place] Start: 11-28-2022 End: 11-28-2022 ambulatory [facility] Facility:[facility] Start: 10-27-2022 End: 10-27-2022 Lab Drop off Elpidio Mederos [facility] Start: 10-27-2022 End: 10-27-2022 ambulatory Elpidio Mederos Facility:[facility] Start: 10-27-2022 End: 10-27-2022 Patient encounter procedure Elpidio Mederos [facility] Start: 08-03-2022 End: 08-03-[address] DOCTOR WILLOUGHBY Facility: Start: 06-30-2022 End: 06-30-2022 Patient encounter procedure FIFI MOON [facility] Start: 06-26-2022 End: 08-01-2022 Pre-admission assessment KIP ARTURO MOON [facility] Start: 12-23-2021 End: 12-23-2021 Lab Drop off Leora Farley [facility] Start: 12-23-2021 End: 12-23-2021 Patient encounter procedure Leora Farley [facility] Start: 10-28-2021 End: 10-28-2021 Emergency department patient visit Carlos Alberto Quiroz [facility] Start: 02-14-2019 End: 02-15-2019 Patient encounter procedure [facility] Start: 02-14-2019 End: 02-14-2019 Subsequent hospital visit by physician Malcolm Vera [facility] Start: 02-09-2019 End: 02-10-2019 Patient encounter procedure [facility] Start: 02-09-2019 End: 02-09-2019 [facility] Start: 07-27-2018 End: 07-28-2018 Patient encounter procedure [facility] Start: 07-26-2018 End: 07-27-2018 Patient encounter procedure [facility] Start: 08-14-2017 End: 08-14-2017 Ambulatory PCP UNKNOWN Facility:[facility] Start: 08-14-2017 Emergency dept visit high severity&threat funcj PCP UNKNOWN [facility] Procedures Date Procedure Procedure Detail Performing Clinician Start: 12-12-2024 CT angiography of head Ankit Parker DO Work Phone: Start: 12-12-2024 CT angiography of ne ck vessels Ankit Parker DO Work Phone: Start: 12-12-2024 CT angiography of thorax Ankit Parker DO Work Phone: Start: 12-12-2024 CT of head without contrast Ankit Parker DO Work Phone: Start: 11-13-2023 Tushar Jame Gamez en Start: 06-20-2019 Edwin Carlos Alberto Arevalo te Start: 02-14-2019 Hepatitis b surf ant ibody hbsab ZAFAR ANU Start: 02-14-2019 Hepatitis be antibody hbeab ZAFAR ANU Start: 02-14-2019 Iaad ia hepatitis b surface antigen ZAFAR ANU Start: 02-14-2019 Iaad ia hepatitis be antigen ZAFAR ANU Start: 02-14-2019 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 ZAFAR ANU Start: 02-14-2019 Hepatitis b surf ant ibody hbsab Zafar Anu Work Phone: Start: 02-14-2019 Iaad ia hepatitis b surface antigen Zafar Anu Work Phone: Start: 02-09-2019 Acute hepatitis panel E RNEST ANU Start: 02-09-2019 Antibody hiv-1&hiv-2 single result ZAFAR ANU Start: 02-09-2019 Blood count complete automated ZAFAR ANU Start: 02-09-2019 Comprehensive metabo lic panel ZAFAR ANU Start: 02-09-2019 Gonadotropin chorion ic qualitative ZAFAR ANU Start: 02-09-2019 Acute hepatitis panel E rnest Anu Work Phone: Start: 02-09-2019 Antibody hiv-1&hiv-2 single result Zafar Anu Work Phone: Start: 02-09-2019 Blood count complete automated Zafar Anu Work Phone: Start: 02-09-2019 Comprehensive metabo lic panel Zafar Anu Work Phone: Start: 02-09-2019 Gonadotropin chorion ic qualitative Zafar Anu Work Phone: Start: 07-27-2018 Acute hepatitis panel E RNEST ANU Start: 07-27-2018 Antibody hiv-1&hiv-2 single result ZAFAR ANU Start: 07-27-2018 Blood count complete automated ZAFAR GAINES Start: 07-27-2018 Comprehensive metabo lic panel ZAFAR GAINES Start: 07-27-2018 Gonadotropin chorion ic qualitative ZAFAR GAINES Start: 07-26-2018 Acute hepatitis panel E AREN GAINES Start: 07-26-2018 Antibody hiv-1&hiv-2 single result ZAFAR GAINES Start: 07-26-2018 Blood count complete automated ZAFAR GAINES Start: 07-26-2018 Comprehensive metabo lic panel ZAFAR GAINES Start: 07-26-2018 Gonadotropin chorion ic qualitative ZAFAR GAINES Start: 07-03-2015 Excision of lymph node Carlos Alberto Quiroz Comment on above: left groin left groin Start: 05-04-2003 cervical cryosurgery Yue li Richie essure procedure Carlos Alberto mijares extraction of wisdom teeth J sujit Quiroz Left inguinal hernia (disorder) Carlos Alberto Quiroz Ligation of fallopian tube J sujit Richie Comment on above: wire coils wire coils Plan of Treatment Date Care Activity Detail Author Start: 12-12-2024 [facility] Start: 12-10-2024 [facility] Start: 12-07-2024 Hospital admission [facility] Start: 12-07-2024 Urine culture [facility] Start: 12-07-2024 Bacteria identified in Urine by Culture Urine Culture [facility] Start: 09-08-2022 DTaP/Tdap/Td vaccine (2 - Td) DTaP/Tdap/Td vaccine (2 - Td) [place], [place] Start: 04-24-2019 Influenza vaccination Flu vaccine (# 1) [place], [place] Comment on above: Postponed from 01/02 (Patient Refused) Start: 2001 Cervical cancer screen Cervical canc er screen [place], [place] Start: 1993 Varicella Vaccine (1 of 2 - 13+ 2-dose series) Varicella Vaccine (1 of 2 - 13+ 2-dose series) [place], [place] Start: 1986 Pneumococcal 0-64 ye ars Vaccine (1 of 1 - PPSV23) Pneumococcal 0-64 years Vaccine (1 of 1 - PPSV23) [place], [place] End: 02-14-2019 Hepatitis B E Antibody Hepatitis B E Antibody Lab Routine Once for 1 Occurrences starting 02/14/2019 until 02/14/2019 [place] Comment on above: Once for 1 Occurrenc es starting 02/14/2019 until 02/14/2019 Hepatitis B E Antibody Hepatitis B E Antibody Lab Routine 02/14/2019 6:25 AM EDT [place], [place] End: 02-14-2019 Hepatitis B e antigen Hepatitis B e antigen Lab Routine Once for 1 Occurrences starting 02/14/2019 until 02/14/2019 [place] Comment on above: Once for 1 Occurrenc es starting 02/14/2019 until 02/14/2019 Hepatitis B e antigen Hepatitis B e antigen Lab Routine 02/14/2019 6:25 AM EDT [place] End: 02-14-2019 Hepatitis C RNA, quantitative, PCR Hepatitis C RNA, quantitative, PCR Lab Routine Once for 1 Occurrences starting 02/14/2019 until 02/14/2019 [place] Comment on above: Once for 1 Occurrenc es starting 02/14/2019 until 02/14/2019 Hepatitis C RNA, quantitative, PCR Hepatitis C RNA, quantitative, PCR Lab Routine 02/14/2019 6:25 AM EDT [place], [place] Patient Education [facility] Work Phone: Patient referral [facility] Work Phone: Immunizations Immunization Date Immunization Notes Care Provider Sky sebastian 12-12-2024 tetanus toxoid, reduced diphtheria toxoid, and acellular pertussis vaccine, adsorbed Ankit Parker DO Work Phone: [facility] 07-27-2017 tuberculin skin test ; purified protein derivative solution, intradermal [place], [place] 09-08-2012 tetanus toxoid, reduced diphtheria toxoid, and acellular pertussis vaccine, adsorbed [place], [place] 01-02-2004 hepatitis B vaccine, adult dosage Elpidio Mederos [facility] 07-11-1993 measles, mumps and rubella virus vaccine Elpidio Mederos [facility] NEGATED: Highlighted row has not occurred!10-27-2022 SARS-CoV-2 mRNA (toocnameran 5y-11y) vaccine Elpidio Mederos [facility] Payers Date Payer Category Payer Self-pay 2024 Unknown [id number] 2023 Unknown BCBS BCBS xxxxxx [id number] 2023-Present [phone] [address] [place] [address] [id number]. [id number] 2023 Unknown [id number] 2015 Unknown [id number] 2015 Unknown JOHNSOGABINO LOPEZS [facility] MEDICAID xxxxxxxxxxx 2015-Present [phone] CLAIMS DEPARTMENT [address] [place] [address] xxxxxxxxxxx [id number]. [id number] 1980 Unknown [id number] 2.16.840.1.508351.3.579.2.173 1980 Unknown [id number] 2.16.840.1.342703.3.579.2.173 1980 Unknown [id number] 2.16.840.1.852811.3.579.2.173 1980 Unknown [id number] 2.16.840.1.867767.3.579.2.173 1980 Unknown [id number] 2.16.840.1.628939.3.579.2.593 1980 Unknown [id number] 2.16.840.1.609957.3.579.2. 1980 Unknown [id number] 2.840.1.017779.3.579.2 1980 Unknown [id number] 2.16.840.1.117185.3.579.2 1980 Unknown [id number] 2.840.1.623615.3.579.2 1980 Unknown [id number] 2.840.1.271575.3.579.2 1980 Unknown [id number] 2.840.1.643104.3.579.2 1980 Unknown [id number] 2.840.1.997763.3.579.2 1980 Unknown [id number] 20.1.621273.3.579.2 1980 Unknown [id number] 2.840.1.941816.3.579.2 1980 Unknown [id number] 2.0.1.618198.3.579.2 1980 Unknown [id number] 2.840.1.668960.3.579.2 1980 Unknown [id number] 20.1.127113.3.579.2 1980 Unknown [id number] 2.840.1.085477.3.579.2.1258 1980 Unknown [id number] 2.840.1.365632.3.579.2 1980 Unknown [id number] 2.16840.1.154724.3.579.2.72 1959 Unknown [id number] Unknown [id number] 2.840.1.238452.3.579.2.531 Unknown [id number] 2.16840.1.655972.3.579.2.531 Social History Date Type Detail Facility Start: 03-10-2018 End: 12-12-2024 Tobacco smoking status NHIS Current every day smoker [place], [place] History of tobacco use Cigarette Smoker [place] Start: 03-10-2018 End: 12-14-2023 Cigarettes smoked current (pack per day) - Reported [place] Start: 03-10-2018 End: 12-14-2023 Alcohol intake No [place], [place] Start: 1980 Sex Assigned At Not on file M [place], [place] Tobacco [facility] Comment on above: quit october 15, 2021 quit october 15, 2021 Tobacco smoking status No Smoking Status Entered [facility] Start: 10-27-2022 Tobacco smoking status Ex-smoker (finding) [facility] Comment on above: quit october 15, 2021 Tobacco smoking status Never [facility] Comment on above: quit october 15, 2021 Start: 12-07-2023 Tobacco smoking status Heavy tobacco smoker (finding) [facility] Comment on above: 1 ppd Start: 12-14-2023 End: 12-25-2023 Alcoholic beverage intake Ex-drinker (finding) [facility] Sex Female (finding) [facility] Start: 1980 Sex Assigned At Female F [facility] NEGATED: Highlighted row N [facility] Medical Equipment Procedure Code Equipment Code Equipment Origin al Text Equipment Identifier Dates Repair, hernia, inguinal, laparoscopic MESH 3D MAX LARGE LEFT FDA Start: 11-01-2018 Repair, hernia, inguinal, laparoscopic MESH 3D MAX LARGE LEFT FDA Start: 11-01-2018 Repair, hernia, inguinal, laparoscopic MESH 3D MAX LARGE LEFT FDA Start: 11-01-2018 Functional Status Date Assessment Result Facility 11-03-2023 Functional Status No [facility] 10-10-2023 Functional Status N/A [facility] 10-27-2022 Functional Status N/A [facility] 12-23-2021 N/A [facility] 10-28-2021 Functional Status N/A [facility] Clinical Notes 10-28-2021 to 12-12-2024 Note Date & Type Note Facility 12-12-2024 Radiology Diagnostic study note [facility] [place] [address] [place], [place] [id number] CT Scan Report Signed Patient: Charles Baldwin MR#: [id number] : 1980 Acct:[id number] Age/Sex: 44 / F ADM Date: 5 Loc: ER Room: Type: [facility] ER Attending Dr: Copies to: Lorena Villarreal MD~ Ordering Provider: Lorena Villarreal MD Date of Service: 12/12/24 CT/CT angio chest PE protocol: tachy, r/o pe CTA Chest with PE protocol TECHNIQUE: Axial imaging with 2-D and 3-D reconstruction. 150cc of Isovue-[address] exam was performed using one or more the following dose reduction techniques: Automated exposure control, adjustment of the MA and/or Kvaccording to patient size, or use of the iterative reconstruction technique. History: Cut neck with knife. Tachycardia. COMPARISON: None THYROID: Unremarkable TRACHEA AND BRONCHI: Patent ESOPHAGUS: Unremarkable. HEART: Within normal limits PERICARDIAL EFFUSION: None CORONARY ARTERY CALCIFICATION: None MEDIASTINUM: No adenopathy. No pneumoperitoneum. No mediastinal hematoma. PULMONARY ARUNA: No hilar mass or adenopathy is seen. THORACIC AORTA Unremarkable PULMONARY EMBOLUS: None LUNG NODULE calcified granulomas. LUNGS: Lungs are clear PLEURAL EFFUSION: None PNEUMOTHORAX: No pneumothorax seen. CHEST WALL: No abnormality AXILLA: Unremarkable BONY STRUCTURES Intact UPPER ABDOMEN: Images of the upper abdomen are noncontributory. CT/CT angio chest PE protocol IMPRESSION: No acute pulmonary embolus. Impression dictated by: Elvin Villagomez M.D. 12/12/2024 10:23 PM Dictation Location: [facility] Transcribed By: [facility] 12/12/242222 Dictated By: Elvin Villagomez DO 12/12/242220 Signed By: 12/12/242222 [facility] 12-12-2024 Radiology Diagnostic study note [facility] [place] [address] [place], [place] [address] CT Scan Report Signed Patient: Charles Baldwin MR#: [id number] : 1980 Acct:[id number] Age/Sex: 44 / F ADM Date: 5 Loc: ER Room: Type: [facility] ER Attending Dr: Copies to: Lorena Villarreal MD~ Ordering Provider: Lorena Villarreal MD Date of Service: 12/12/24 CT/CT angio head: attempted hanging self with seatbelt ([id number]) CT/CT angio neck: attempted hanging self with seatbelt CTA Head and Neck TECHNIQUE: Axial imaging of the head and neck with 2-D and 3-D reconstruction. 150cc of Isovue-370. The CT exam was performed using one or more the following dose reduction techniques: Automated exposure control, adjustment of the MA and/or Kv according to patient size, or use of the iterative reconstruction technique. Stenoses were measured using the NASCET criteria. COMPARISON: None HISTORY: Cut the neck with knife. Superficial abrasions The visualized aortic arch and great vessels are unremarkable. Subclavian arteries are patent No carotid dissection, critical stenosis or occlusion identified. No vertebral dissection, occlusion or abrupt cut off identified. The carotid siphons and vertebral basilar systems are patent. No intracranial aneurysm, dissection, abrupt cut off or critical stenosis identified.. . CT/CT angio head IMPRESSION: No occlusion, critical stenosis or dissection of the extracranial orintracranial circulation. Impression dictated by: Elvin Villagomez M.D. 12/12/2024 10:21 PM Dictation Location: [place] [address] Transcribed By: [facility] 12/12/242220 Dictated By: Elvin Villagomez DO 12/12/242215 Signed By: 12/12/242220 [facility] 12-12-2024 Radiology Diagnostic study note [facility] Main [address] [address] [address] Scan Report Signed Patient: Charles Baldwin MR#: [id number] : 1980 Acct:[id number] Age/Sex: 44 / F ADM Date: 5 Loc: ER Room: Type: [facility] ER Attending Dr: Copies to: Lorena Villarreal MD~ Ordering Provider: Lorena Villarreal MD Date of Service: 12/12/24 CT/CT head/brain wo con: attempted hanging self with seatbelt Unenhanced head CT TECHNIQUE: Contiguous axial imaging of the head. The CT exam was performed usingone or more the following dose reduction techniques: Automated exposure control,adjustment of the MA and/or Kv according to patient size, or use of the iterative reconstruction technique. COMPARISON: None HISTORY: High cut with knife. Superficial abrasions. Substance abuse. VENTRICLES: Within normal limits ATROPHY: None BRAIN PARENCHYMA: Adequate baltazar-white matter differentiation identified. HEMORRHAGE: None HERNIATION: No mass effect or herniation INFARCTION: No recent vascular distribution infarction is seen. EXTRA-AXIAL FLUID COLLECTIONS None MIDBRAIN: Unremarkable JOHN: Unremarkable MEDULLA: Unremarkable SINUSES: Unremarkable ORBITS: Grossly unremarkable MASTOIDS: Unremarkable BONY STRUCTURES Intact ADDITIONAL FINDINGS: CT/CT head/brain wo con IMPRESSION: No acute findings. Impression dictated by: Elvin Villagomez M.D. 12/12/2024 10:16 PM Dictation Location: [facility] Transcribed By: [facility] 12/12/242215 Dictated By: Elvin Villagomez DO 12/12/242214 Signed By: 12/12/242215 [facility] 12-10-2024 Hospital Discharg e instructions Additional Instructions Important Contact Information You can call [facility] Inpatient Behavioral Health at [phone] any time day or night if you have emergent questions or question regarding discharge instructions. If at any time you are feeling an increase in your psychiatric symptoms, call your physician or behavioral healthcare provider. If any time you have thoughts of harming yourself or others contact one of the following: Call 8 (available 24/11) Crisis Text Line (available 24/11) text 4HOPE to [phone] [facility] (available 8 a.m. Midnight) call [phone] ([phone]) [facility] Work Phone: 12-07-2024 Evaluation note Diagnosis Onset Date Resolution Suicidal ideation acute December 07, 2024 3:17pm [facility] Work Phone: 1(560) 162-654308-06-2025 Evaluation note* Diagnosis Onset Date Resolution Status Admit Date MDD (major depressive disorder) acut e December 07, 2024 3:17pm Suicidal ideation acute December 07, 2024 3:17pm [facility] Work Phone: 1(108) 884-988908-23-2024 History of Present illness Narrative* Jeri Fernandez MD - 12/25/2023 10:20 AM EDT Subjective Patient ID: Charles Baldwin is a 43 y.o. female who presents for facial abscess (2 wk follow up) Stopped draining 2-3 days ago Family History Problem Relation Name Age of Onset Hyperlipidemia Mother Other (HTN) Mother Other (HTN) Father Other (HTN) Sister Active Ambulatory Problems Diagnosis Date Noted Asymptomatic microscopic hematuria 12/23/2021 Bunion of great toe of right foot 12/09/2023 Cellulitis of right foot due to methicillin-resistant Staphylococcus aureus 02/17/2010 Chest pain 10/28/2021 Current smoker 12/09/2023 Essential hypertension (CMS/HCC) 12/09/2023 Foreign body in bladder 12/10/2022 History of MRSA infection 12/09/2023 Inguinal lymphadenopathy 12/09/2023 Kidney stone 12/23/2021 Left inguinal hernia 12/09/2023 Left inguinal pain 12/09/2023 Mastodynia of right breast 12/09/2023 Migraine (CMS/HCC) 12/09/2023 Ovarian cyst 12/09/2023 Ruptured sebaceous cyst 12/09/2023 Stress incontinence of urine 12/23/2021 Substance abuse (CMS/HCC) 12/09/2023 Chronic hepatitis C (CMS/HCC) 12/09/2023 Endometriosis 12/09/2023 Squamous cell carcinoma of cervix (CMS/HCC) 12/09/2023 Vaginal discharge 12/14/2023 Headache 12/14/2023 Facial abscess 12/14/2023 Resolved Ambulatory Problems Diagnosis Date Noted No Resolved Ambulatory Problems No Additional Past Medical History Past Surgical History: Procedure Laterality Date GYNECOLOGIC CRYOSURGERY 2004 cervical HERNIA REPAIR Left HYSTERECTOMY 11/13/2023 LYMPH NODE DISSECTION 06/20/2019 TUBAL LIGATION WISDOM TOOTH EXTRACTION Allergies Allergen Reactions Hydrocodone-Acetaminophen Nausea And Vomiting Hydrocodone Other Reaction(s): Vomiting Nalbuphine Nausea And Vomiting Other Reaction(s): Vomiting, Vomiting vomiting immediately Current Outpatient Medications on File Prior to Visit Medication Sig Dispense Refill cephalexin (Keflex) 500 MG capsule Take 500 mg by mouth in the morning and 500 mg at noon and 500 mg in the evening and 500 mg before bedtime. cyclobenzaprine (Flexeril) 10 MG tablet Take 10 mg by mouth 3 (three) times a day as needed doxycycline (Vibramycin) 100 MG capsule Take 100 mg by mouth Daily doxycycline (Vibramycin) 100 MG capsule Take 1 capsule (100 mg) by mouth in the morning and 1 capsule (100 mg) before bedtime. Do all this for 14 days. Take with at least 8 ounces (large glass) of water, do not lie down for 30 minutes after. 28 capsule 0 ibuprofen 600 MG tablet Take 600 mg by mouth every 6 (six) hours metoprolol succinate XL (Toprol-XL) 25 MG 24 hr tablet Take 25 mg by mouth Daily sulfamethoxazole-trimethoprim (Bactrim DS) 800-160 MG per tablet Take 1 tablet by mouth every 12 (twelve) hours for 14 days 28 tablet 0 No current facility-administered medications on file prior to visit. Objective Last Recorded Vitals Vitals: 12/25/23 1024 BP: 73/56 ENT Physical Exam Constitutional Appearance: patient appears well-developed, well-nourished and well-groomed, Communication/Voice: communication appropriate for developmental age; vocal quality normal; Head and Face Head and Face comments: RT facial sub q fullness. No charlette drainage Assessment/Plan Diagnoses and all orders for this visit: Facial abscess Responding well to tx. Abx end Thursday. I will extend another week. documented in [facility] [id number] NoteProgress Note-Physician Patient: CHARLES BALDWIN Age: 43 years Sex: Female : 1980 Associated Diagnoses: None Author: MD Dafne, Tashi Rand Postoperative Information Postoperative disposition: Postoperative disposition: To PACU. Optimetrix number: Optimetrix number [id number]. Anesthetic utilized: General. Health Status Allergies: Allergic Reactions (Selected) Severity Not Documented HYDROcodone- Vomiting. Nubain- Vomiting. Physical Examination VS/Measurements Pain Assessment: Controlled. General: Awake, Alert, Appropriate. Respiratory: Adequate air exchange. Cardiovascular: Stable, Normal peripheral perfusion. Neurological: Normal sensory function, Normal motor function. Assessment Anesthetic outcome No anesthetic complications noted. Adequate pain relief. able to void without difficulty, able to ambulate with assist, tolerating PO intake, no N/V. Review / Management Condition: Stable. Plan Transfer/Discharge: Transfer/Discharge Discharge when meets criteria ( To home ).[facility]:Result Comment: Electronically Signed By: MD Dafne, Tashi Pearson.br\Date and Time Signed: 11/15/23 12:07 EDT 11-13-2023 Hospital Discharge instructions Patient Education 11/13/2023 11:29:40 Post Op Patient Instructions - GIUSEPPE (CUSTOM) 11/13/2023 11:29:39 SLIP MAKER - Post Hysterectomy/Laparotomy/Major Surgery-Nelli (CUSTOM) Instructions post hysterectomy/laparotomy/major surgery It is recommended that you rest at home on the day of discharge, and get to bed early so you get a good night s rest. Gradually increase your activity daily for example: no lifting anything heavier than ten pounds the first week, twenty pounds the second week, and thirty pounds the third week. NO: intercourse, douches, and tampons for the next 6 weeks. You can expect some vaginal spotting, cramps or light bleeding after surgery. This is normal. Each day should get better and better. If you are soaking a pad an hour or more frequently you need to call your doctor. You can ride in a car; Drive when it is not painful. If it is painful, don t do it. Stitches will dissolve with time and do not need to be removed. The band aids can be removed tomorrow. Leave the steri strips on. They may fall off and that is o.k. You may place band aids over the steri strips if there is drainage. You can shower with the incisions the day after surgery. Try to keep the steri strips as dry as possible. No tub baths, swimming, or soaking in water until after yourtwo week follow up appointment. Return to the office for postoperative check, and to go over any biopsy results at your scheduled appointment; usually two weeks following your surgery; and then at six weeks after surgery. Please call the office to schedule these appointments. CALL THE DOCTOR if you have severe pain, heavy bleeding, or a temperature of 100.5 or higher. Resume your regular home medication schedule as soon as you are eating a regular diet. You can either take the prescribed medications as directed for pain, or you can take over the counter pain medication, such as Motrin; as indicated on the package for pain or cramps. PLEASE CALL FOR ANY PROBLEMS. Follow Up Care 10/22/2023 15:12:41 With:Jame Aiken Address: [facility] [place] [address] Business (1) When:6 weeks With:Jame Aiken Address: [address] [place] [address] [facility] (1) When:[address] [facility]07-12-2024 NotePatient Education - Text Instructions post hysterectomy/laparotomy/major surgery It is recommended that you rest at home on the day of discharge, and get to bed early so you get a good night?s rest. Gradually increase your activity daily ? for example: no lifting anything heavierthan ten pounds the first week, twenty pounds the second week, and thirty pounds the third week. NO: intercourse, douches, and tampons for the next 6 weeks. You can expect some vaginal spotting, cramps or light bleeding after surgery. This is normal. Each day should get better and better. If you are soaking a pad an hour or more frequently ? you need to call your doctor. You can ride in a car; Drive when it is not painful. If it is painful, don?t do it. Stitches will dissolve with time and do not need to be removed. The band aids can be removed tomorrow. Leave the steri strips on. They may fall off and that is o.k. You may place band aids over the steri strips if there is drainage. You can shower with the incisions the day after surgery. Try to keep the steri strips as dry as possible. No tub baths, swimming, or soaking in water until after yourtwo week follow up appointment. Return to the office for postoperative check, and to go over any biopsy results at your scheduled appointment; usually two weeks following your surgery; and then at six weeks after surgery. Please call the office to schedule these appointments. CALL THE DOCTOR if you have severe pain, heavy bleeding, or a temperature of 100.5 or higher. Resume your regular home medication schedule as soon as you are eating a regular diet. You can either take the prescribed medications as directed for pain, or you can take over the counter pain medication, such as Motrin; as indicated on the package for pain or cramps. PLEASE CALL FOR ANY PROBLEMS.[facility]07-12-2024 NoteHistory and Physical HOSPITAL REGULATIONS: All Positive and Important Negative Findings Shall Be Recorded DATE ADMITTED: 11/13/2023 ADMITTING DIAGNOSIS: Menorrhagia, dysmenorrhea, dyspareunia, history of Essure coils, heavy tobaccosmoker HISTORY OF PRESENT ILLNESS: The patient presented to my office in followup of her endometrial biopsies. These were found to be negative for malignancy. She had originally presented to a nurse practitioner for heavy clotty painful periods as well as painful intercourse. She had normal Pap smear. Shedoes have a history of Essure coils. Ultrasound revealed a uterus that was 8.6 x 5.1 x 3.8. Diagnostic hysteroscopy was revealing of thickened endometrium which biopsied secretory. After discussion of alternatives of care, the patient was concerned that she would continue to have pain beyond any kind of treatment just for her uterine lining. She was worried with her Essure coils. Her pain, menorrhagia, and her heavy smoking habit limiting her control options, she was interested in more definitive surgical management in the form of a hysterectomy and bilateral salpingectomy. She would also like attention to her umbilical hernia if possible. Did discuss that with her pain and history and the potential for endometriosis that would be present that was affecting her ovaries, it may necessitateremoval of the ovaries, but our bias would be to leave the ovaries behind. We discussed the risks of this procedure including bleeding, infection, injury to internal organs, possible continued pain, all of which she understood and accepted and appropriately signed consent forms. PAST MEDICAL HISTORY: Allergies: Nubain and hydrocodone. Medications: Metoprolol. Illnesses: Decreased mood, herpes simplex virus, hypertension, history of hepatitis C, migraines. Surgeries: Essure placement in 2008, hernia surgery in 2018, history of object removal from a kidney and ureter in 2022. SOCIAL HISTORY: Positive for cigarettes. ETOH: No. Former history of drug use. PHYSICAL EXAMINATION: GENERAL: Well-developed, well-nourished white female in no acute distress. VITAL SIGNS: Afebrile, pulse 80, respirations 18, blood pressure 130/84. HEAD AND E.E.N.T.: Normocephalic. Extraocular muscles intact. Pupils equal and responsive to light and accommodation. Nose and throat clear. NECK: Without mass, without thyromegaly. LUNGS: Clear to auscultation and percussion. HEART: Regular rate and rhythm. BREASTS: Nonpathologic. ABDOMEN: Small belly button hernia. Negative for guarding, negative for rebound, without organomegaly. EXTREMITIES: Negative for clubbing, cyanosis, or edema. PELVIC: Normal external genitalia. Vault within normal limits. Cervix without lesion. Uterus generous to normal size, shape, consistency, mildly tender to palpation, eight weeks' size. Adnexa withoutmass, nontender. IMPRESSION: Dysmenorrhea, dyspareunia, history of Essure coils, for definitive surgical management. Jing Conway Dictated: 11/12/2023 [id number] Transcribed: 11/13/2023[facility] CenterComment on above:Result Comment: Electronically Signed By: Nelli COOK, Jame Mcrae\.br\Date and Time Signed: 11/13/23 10:50 [id number] NoteProgress Note-Physician Patient: CHARLES BALDWIN Age: 43 years Sex: Female : 1980 Associated Diagnoses: None Author: MD Dafne, Tashi Rand Preoperative Information Time patient last ate or drank:=== (npo 8 hours) Anesthesia history: Patient history: No prior anesthesia problems. Re-evaluation prior to induction: Completed, Initial evaluation reviewed. Review of Systems Respiratory: No shortness of breath. Cardiovascular: No chest pain. Hematology/Lymphatics: No bruising tendency, No bleeding tendency. Health Status Allergies: Allergic Reactions (All) Severity Not Documented HYDROcodone- Vomiting. Nubain- Vomiting. Current medications: (Selected) Prescriptions Prescribed Proventil HFA 90 mcg/inh Aerosol: 2 puff(s), Inhalation, QID, 1 EA, Refill(s) 0 ibuprofen 600 mg Tab: 600 mg = 1 tab(s), Oral, q6hr, # 20 tab(s), Refills(s) 0, Pharmacy: [id number], 168, cm, 11/03/23 15:41:00 EDT, Height/Length Dosing, 63.1, kg, 11/03/23 15:41:00EDT, Weight Dosing Documented Medications Documented Tylenol: 650 mg, Oral, q6hr, PRN as needed for pain, Refills(s) 0 amoxicillin-clavulanate 875 mg-125 mg Tab: 1 tab(s), Oral, q12hr for 10 day(s) cyclobenzaprine 10 mg Tab: 10 mg = 1 tab(s), Oral, TID, PRN for spasm, # 30 tab(s), Refills(s) 0 ibuprofen 800 mg Tab: 800 mg = 1 tab(s), Oral, TID, PRN as needed for pain, Refills(s) 0 metoprolol succinate 25 mg ER Tab: 25 mg = 1 tab(s), Oral, Daily, Refills(s) 0, High blood pressure Problem list: All Problems MRSA / SNOMED CT 853955621 / Confirmed MRSA vagina 02/17/10 Lymphadenopathy, inguinal / SNOMED CT 764465 / Confirmed left Bunion of great toe of right foot / SNOMED CT 7163215896 / Confirmed Migraine / SNOMED CT 40506764 / Confirmed Substance abuse / SNOMED CT 576782842 / Confirmed history of pain med abuse mrsa / SNOMED CT 5611483265 / Confirmed Smoker / IMO [id number] / Confirmed Added secondary to documentation in Social History. Ovarian cyst / SNOMED CT 244051037 / Confirmed Mastodynia of right breast / SNOMED CT 3539570340 / Confirmed Asymptomatic microscopic hematuria / SNOMED CT 2573154952 / Confirmed Kidney stone / SNOMED CT 175543195 / Confirmed Stress incontinence / SNOMED CT 783622601 / Confirmed Asymptomatic microscopic hematuria / SNOMED CT 0721762088 / Confirmed Chest pain / SNOMED CT 92712282 / Confirmed Essential hypertension / SNOMED CT 83656852 / Confirmed Genuine stress incontinence / SNOMED CT 377636529 / Confirmed Inguinal lymphadenopathy / SNOMED CT 870743 / Confirmed Outside Source Comment: Comment on above:[facility]:Result Comment: Electronically Signed By: MD Dafne, Tashi Pearson.br\Date and Time Signed: 11/15/23 12:06 [id number] NoteMicrobiology PROCEDURE: Blood Culture Charcoal [R1] SOURCE: Blood BODY SITE: Arm R COLLECTED DATE/TIME: 10/10/2023 19:12 EDT RECEIVED DATE/TIME: 10/10/2023 21:35 EDT START DATE/TIME: 10/10/2023 21:35 EDT FREE TEXT SOURCE: IV beto Rosario PA-C, Juliana Rosario PA-C, Juliana Lentz FINAL REPORTS Final Report [] Verified Date/Time: 10/18/2023 00:00 EDT No growth at 7 days. Performing Locations R1: This test was performed at: [facility], [address] [place] [address], [address] [place] [address], SxkfgjUniversity [facility]als Samaritan Medical CenterComment on above:Performed By: #### [id number] #### [address] [id number] NoteMicrobiology PROCEDURE: Blood Culture Charcoal [R1] SOURCE: Blood BODY SITE: Arm R COLLECTED DATE/TIME: 10/10/2023 19:00 EDT RECEIVED DATE/TIME: 10/10/2023 21:35 EDT START DATE/TIME: 10/10/2023 21:35 EDT FREE TEXT SOURCE: rt eugenio Rosario PA-C, Juliana Rosario PA-C, Juliana Kovacs. FINAL REPORTS Final Report [] Verified Date/Time: 10/18/2023 00:00 EDT No growth at 7 days. Performing Locations R1: This test was performed at: [facility], [address] [place] [address], [id number] [place] [address], [address] [place], [place] [address]Comment on above:Performed By: #### [id number] #### [facility] [address] [place] [address] [id number] NoteMicrobiology PROCEDURE: Blood Culture Charcoal [R1] SOURCE: Blood BODY SITE: Arm R COLLECTED DATE/TIME: 10/10/2023 19:12 EDT RECEIVED DATE/TIME: 10/10/2023 21:35 EDT START DATE/TIME: 10/10/2023 21:35 EDT FREE TEXT SOURCE: Peripheral vein site #2 Abraham BRIONES-Ami, Juliana Rosario PA-C, Juliana Kovacs. FINAL REPORTS Final Report [] Verified Date/Time: 10/18/2023 00:00 EDT No growth at 7 days. Performing Locations R1: This test was performed at: [facility], [address] [place] [address], [id number] [place] [address], [address] [place], [place] [address]Comment on above:Performed By: #### [id number] #### [facility] [address] [place] [address] [id number] NoteMicrobiology PROCEDURE: Blood Culture Charcoal [R1] SOURCE: Blood BODY SITE: Arm R COLLECTED DATE/TIME: 10/10/2023 19:00 EDT RECEIVED DATE/TIME: 10/10/2023 21:35 EDT START DATE/TIME: 10/10/2023 21:35 EDT FREE TEXT SOURCE: Peripheral vein site #1 Abraham BRIONES-Ami, Juliana Rosario PA-C, Juliana Kovacs. FINAL REPORTS Final Report [] Verified Date/Time: 10/18/2023 00:00 EDT No growth at 7 days. Performing Locations R1: [facility] at: [facility], [address] [place] [address], [id number] [place] [address], VhvhfpUniversity Hospitals Samaritan Medical CenterComment on above:Performed By: #### [id number] #### [facility] [address] [place] [id number] Evaluation + Plan note Future Scheduled Tests Radiology* XR Abdomen 1 View 11/21/22 * US Renal 11/21/[address] [facility]06-26-2023 Hospital Discharge instructions Patient Education 10/27/2022 18:51:38 Musculoskeletal Pain Musculoskeletal Pain Musculoskeletal pain refers to aches and pains in your bones, joints, muscles, and the tissues thatsurround them. This pain can occur in any part of the body. It can last for a short time (acute) ora long time (chronic). A physical exam, lab tests, and imaging studies may be done to find the cause of your musculoskeletal pain. Follow these instructions at home: Lifestyle Try to control or lower your stress levels. Stress increases muscle tension and can worsen musculoskeletal pain. It is important to recognize when you are anxious or stressed and learn ways to manageit. This may include: ?Meditation or yoga. ?Cognitive or behavioral therapy. ?Acupuncture or massage therapy. You may continue all activities unless the activities cause more pain. When the pain gets better, slowly resume your normal activities. Gradually increase the intensity and duration of your activities or exercise. Managing pain, stiffness, and swelling Treatment may include medicines for pain and inflammation that are taken by mouth or applied to theskin. Take ayws-psv-ehvffpq and prescription medicines only as told by your health care provider. When your pain is severe, bed rest may be helpful. Lie or sit in any position that is comfortable, but get out of bed and walk around at least every couple of hours. If directed, apply heat to the affected area as often as told by your health care provider. Use theheat source that your health care provider recommends, such as a moist heat pack or a heating pad. ?Place a towel between your skin and the heat source. ?Leave the heat on for 20 30 minutes. ?Remove the heat if your skin turns bright red. This is especially important if you are unable to feel pain, heat, or cold. You may have a greater risk of getting burned. If directed, put ice on the painful area. To do this: ?Put ice in a plastic bag. ?Place a towel between your skin and the bag. ?Leave the ice on for 20 minutes, 2 3 times a day. ?Remove the ice if your skin turns bright red. This is very important. If you cannot feel pain, heat, or cold, you have a greater risk of damage to the area. General instructions Your health care provider may recommend that you see a physical therapist. This person can help youcome up with a safe exercise program. If told by your health care provider, do physical therapy exercises to improve movement and strength in the affected area. Keep all follow-up visits. This is important. This includes any physical therapy visits. Contact a health care provider if: Your pain gets worse. Medicines do not help ease your pain. You cannot use the part of your body that hurts, such as your arm, leg, or neck. You have trouble sleeping. You have trouble doing your normal activities. Get help right away if: You have a new injury and your pain is worse or different. You feel numb or you have tingling in the painful area. Summary Musculoskeletal pain refers to aches and pains in your bones, joints, muscles, and the tissues thatsurround them. This pain can occur in any part of the body. Your health care provider may recommend that you see a physical therapist. This person can help youcome up with a safe exercise program. Do any exercises as told by your physical therapist. Lower your stress level. Stress can worsen musculoskeletal pain. Ways to lower stress may include meditation, yoga, cognitive or behavioral therapy, acupuncture, and massage therapy. This information is not intended to replace advice given to you by your health care provider. Make sure you discuss any questions you have with your health care provider. Document Revised: 08/23/2020 Document Reviewed: 08/01/2020 [employer] Patient Education 2022 [employer]. 10/27/2022 18:51:34 Hematuria, Adult Hematuria, Adult Hematuria is blood in the urine. Blood may be visible in the urine, or it may be identified with a test. This condition can be caused by infections of the bladder, urethra, kidney, or prostate. Otherpossible causes include: Kidney stones. Cancer of the urinary tract. Too much calcium in the urine. Conditions that are passed from parent to child (inherited conditions). Exercise that requires a lot of energy. Infections can usually be treated with medicine, and a kidney stone usually will pass through your urine. If neither of these is the cause of your hematuria, more tests may be needed to identify the cause of your symptoms. It is very important to tell your health care provider about any blood in your urine, even if it ispainless or the blood stops without treatment. Blood in the urine, when it happens and then stops and then happens again, can be a symptom of a very serious condition, including cancer. There is no pain in the initial stages of many urinary cancers. Follow these instructions at home: Medicines Take kosg-khz-ecqwnxi and prescription medicines only as told by your health care provider. If you were prescribed an antibiotic medicine, take it as told by your health care provider. Do notstop taking the antibiotic even if you start to feel better. Eating and drinking Drink enough fluid to keep your urine pale yellow. It is recommended that you drink 3 4 quarts (2.83.8 L) a day. If you have been diagnosed with an infection, drinking cranberry juice in addition tolarge amounts of water is recommended. Avoid caffeine, tea, and carbonated beverages. These tend to irritate the bladder. Avoid alcohol because it may irritate the prostate (in males). General instructions If you have been diagnosed with a kidney stone, follow your health care provider's instructions about straining your urine to catch the stone. Empty your bladder often. Avoid holding urine for long periods of time. If you are female: ?After a bowel movement, wipe from front to back and use each piece of toilet paper only once. ?Empty your bladder before and after sex. Pay attention to any changes in your symptoms. Tell your health care provider about any changes or any new symptoms. It is up to you to get the results of any tests. Ask your health care provider, or the department that is doing the test, when your results will be ready. Keep all follow-up visits. This is important. Contact a health care provider if: You develop back pain. You have a fever or chills. You have nausea or vomiting. Your symptoms do not improve after 3 days. Your symptoms get worse. Get help right away if: You develop severe vomiting and are unable to take medicine without vomiting. You develop severe pain in your back or abdomen even though you are taking medicine. You pass a large amount of blood in your urine. You pass blood clots in your urine. You feel very weak or like you might faint. You faint. Summary Hematuria is blood in the urine. It has many possible causes. It is very important that you tell your health care provider about any blood in your urine, even ifit is painless or the blood stops without treatment. Take qayi-stf-ydnnzkh and prescription medicines only as told by your health care provider. Drink enough fluid to keep your urine pale yellow. This information is not intended to replace advice given to you by your health care provider. Make sure you discuss any questions you have with your health care provider. Document Revised: 12/19/2020 Document Reviewed: 12/19/2020 [employer] Patient Education 2022 [employer]. Follow Up Care 10/27/2022 18:15:43 With:FIFI MOON CNP Address: [facility] [address], [facility] [place] [address]- When: Unknown [facility] 06-26-2023 Evaluation + Plan note Diagnostic Tests Pending * Urine Culture 10/27/[address] [facility]08-[facility]-2022 Hospital Discharge instructions Patient Education 12/23/2021 13:57:44 Hematuria, Adult Hematuria, Adult Hematuria is blood in the urine. Blood may be visible in the urine, or it may be identified with a test. This condition can be caused by infections of the bladder, urethra, kidney, or prostate. Otherpossible causes include: Kidney stones. Cancer of the urinary tract. Too much calcium in the urine. Conditions that are passed from parent to child (inherited conditions). Exercise that requires a lot of energy. Infections can usually be treated with medicine, and a kidney stone usually will pass through your urine. If neither of these is the cause of your hematuria, more tests may be needed to identify the cause of your symptoms. It is very important to tell your health care provider about any blood in your urine, even if it ispainless or the blood stops without treatment. Blood in the urine, when it happens and then stops and then happens again, can be a symptom of a very serious condition, including cancer. There is no pain in the initial stages of many urinary cancers. Follow these instructions at home: Medicines Take crrl-tdc-ipxjjhu and prescription medicines only as told by your health care provider. If you were prescribed an antibiotic medicine, take it as told by your health care provider. Do notstop taking the antibiotic even if you start to feel better. Eating and drinking Drink enough fluid to keep your urine clear or pale yellow. It is recommended that you drink 3 4 quarts (2.8 3.8 L) a day. If you have been diagnosed with an infection, it is recommended that you drink cranberry juice in addition to large amounts of water. Avoid caffeine, tea, and carbonated beverages. These tend to irritate the bladder. Avoid alcohol because it may irritate the prostate (men). General instructions If you have been diagnosed with a kidney stone, follow your health care provider's instructions about straining your urine to catch the stone. Empty your bladder often. Avoid holding urine for long periods of time. If you are female: ?After a bowel movement, wipe from front to back and use each piece of toilet paper only once. ?Empty your bladder before and after sex. Pay attention to any changes in your symptoms. Tell your health care provider about any changes or any new symptoms. It is your responsibility to get your test results. Ask your health care provider, or the department performing the test, when your results will be ready. Keep all follow-up visits as told by your health care provider. This is important. Contact a health care provider if: You develop back pain. You have a fever. You have nausea or vomiting. Your symptoms do not improve after 3 days. Your symptoms get worse. Get help right away if: You develop severe vomiting and are unable take medicine without vomiting. You develop severe pain in your back or abdomen even though you are taking medicine. You pass a large amount of blood in your urine. You pass blood clots in your urine. You feel very weak or like you might faint. You faint. Summary Hematuria is blood in the urine. It has many possible causes. It is very important that you tell your health care provider about any blood in your urine, even ifit is painless or the blood stops without treatment. Take xlam-qve-augztlb and prescription medicines only as told by your health care provider. Drink enough fluid to keep your urine clear or pale yellow. This information is not intended to replace advice given to you by your health care provider. Make sure you discuss any questions you have with your health care provider. Document Released: 04/20/2006 Document Revised: 09/14/2019 Document Reviewed: 05/23/2017 [employer] Patient Education 2019 [employer]. Follow Up Care 11/07/2021 10:36:14 With:Miguelito COOK, ARMANDO Espinoza, [facility] Address: When: Unknown [facility] 06-27-2022 Hospital Discharge instructions Patient Education 10/28/2021 16:21:07 Pain Without a Known Cause Pain Without a Known Cause Pain can occur in any part of the body and can range from mild to severe. Sometimes no cause can befound for why you are having pain. Some types of pain that can occur without a known cause include: Headache. Back pain. Abdominal pain. Neck pain. Your health care provider will do tests to try to find the cause of your pain. If no cause is found, your health care provider may diagnose you with pain without a known cause. In some cases, your health care provider may repeat tests and look further for a possible cause. Follow these instructions at home: Managing pain, stiffness, and swelling Take ryzn-toi-tyxupss and prescription medicines only as told by your health care provider. Do not drive or use heavy machinery while taking prescription pain medicine. Stop any activities that cause pain. Rest during periods of severe pain. If directed, put ice on the painful area: ?Put ice in a plastic bag. ?Place a towel between your skin and the bag. ? Leave the ice on for 20 minutes, 2 3 times a day. If directed, apply heat to the affected area. Use the heat source that your health care provider recommends, such as a moist heat pack or a heating pad. ?Place a towel between your skin and the heat source. ?Leave the heat on for 20 30 minutes. ?Remove the heat if your skin turns bright red. This is especially important if you are unable to feel pain, heat, or cold. You may have a greater risk of getting burned. General instructions Reduce your stress with activities such as yoga or meditation. Talk with your health care provider about other ways to reduce stress. Exercise regularly. Ask your health care provider what activities are safe for you. Eat a balanced diet that includes fruits and vegetables, whole grains, lean meat, and low-fat dairy. Talk with your health care provider if you have any questions about your diet. If you are taking prescription pain medicine, take actions to prevent or treat constipation. Your health care provider may recommend that you: ? Drink enough fluid to keep your urine pale yellow. ?Eat foods that are high in fiber, such as fresh fruits and vegetables, whole grains, and beans. ?Limit foods that are high in fat and processed sugars, such as fried and sweet foods. ?Take an iqtt-ctp-yijsjgw or prescription medicine for constipation. Contact a health care provider if you: Have pain, and no reason can be found for it. Do not get better, even after treatment. Get help right away if: Your pain is making you want to harm yourself. If you ever feel like you may hurt yourself or others, or have thoughts about taking your own life,get help right away. You can go to your nearest emergency department or call: Your local emergency services (911 in the [place] A suicide crisis helpline, such as the National Suicide Prevention Lifeline at . Thisis open 24 hours a day. Summary Pain can occur in any part of the body and can range from mild to severe. Your health care provider will do tests to try to find the cause of your pain. If no cause is found, your health care provider may diagnose you with pain without a known cause. To help your pain, take medicines as told by your health care provider, apply ice or heat, exercise, reduce stress, and eat a healthy diet. This information is not intended to replace advice given to you by your health care provider. Make sure you discuss any questions you have with your health care provider. Document Released: 01/13/2002 Document Revised: 06/16/2019 Document Reviewed: 05/10/2018 [employer] Patient Education 2020 [employer]. 10/28/2021 16:21:07 Nonspecific Chest Pain, Adult, Kctq-la-Ufwr Nonspecific Chest Pain Chest pain can be caused by many different conditions. Some causes of chest pain can be life-threatening. These will require treatment right away. Serious causes of chest pain include: Heart attack. A tear in the body's main blood vessel. Redness and swelling (inflammation) around your heart. Blood clot in your lungs. Other causes of chest pain may not be so serious. These include: Heartburn. Anxiety or stress. Damage to bones or muscles in your chest. Lung infections. Chest pain can feel like: Pain or discomfort in your chest. Crushing, pressure, aching, or squeezing pain. Burning or tingling. Dull or sharp pain that is worse when you move, cough, or take a deep breath. Pain or discomfort that is also felt in your back, neck, jaw, shoulder, or arm, or pain that spreads to any of these areas. It is hard to know whether your pain is caused by something that is serious or something that is not so serious. So it is important to see your doctor right away if you have chest pain. Follow these instructions at home: Medicines Take psqu-liz-ffivajp and prescription medicines only as told by your doctor. If you were prescribed an antibiotic medicine, take it as told by your doctor. Do not stop taking the antibiotic even if you start to feel better. Lifestyle Rest as told by your doctor. Do not use any products that contain nicotine or tobacco, such as cigarettes, e- cigarettes, and chewing tobacco. If you need help quitting, ask your doctor. Do not drink alcohol. Make lifestyle changes as told by your doctor. These may include: ?Getting regular exercise. Ask your doctor what activities are safe for you. ?Eating a heart-healthy diet. A diet and nutrition professor (dietitian) can help you to learn healthy eating options. ?Staying at a healthy weight. ?Treating diabetes or high blood pressure, if needed. ?Lowering your stress. Activities such as yoga and relaxation techniques can help. General instructions Pay attention to any changes in your symptoms. Tell your doctor about them or any new symptoms. Avoid any activities that cause chest pain. Keep all follow-up visits as told by your doctor. This is important. You may need more testing if your chest pain does not go away. Contact a doctor if: Your chest pain does not go away. You feel depressed. You have a fever. Get help right away if: Your chest pain is worse. You have a cough that gets worse, or you cough up blood. You have very bad (severe) pain in your belly (abdomen). You pass out (faint). You have either of these for no clear reason: ?Sudden chest discomfort. ?Sudden discomfort in your arms, back, neck, or jaw. You have shortness of breath at any time. You suddenly start to sweat, or your skin gets clammy. You feel sick to your stomach (nauseous). You throw up (vomit). You suddenly feel lightheaded or dizzy. You feel very weak or tired. Your heart starts to beat fast, or it feels like it is skipping beats. These symptoms may be an emergency. Do not wait to see if the symptoms will go away. Get medical help right away. Call your local emergency services (911 in the [place] Do not drive yourself to the hospital. Summary Chest pain can be caused by many different conditions. The cause may be serious and need treatment right away. If you have chest pain, see your doctor right away. Follow your doctor's instructions for taking medicines and making lifestyle changes. Keep all follow-up visits as told by your doctor. This includes visits for any further testing if your chest pain does not go away. Be sure to know the signs that show that your condition has become worse. Get help right away if you have these symptoms. This information is not intended to replace advice given to you by your health care provider. Make sure you discuss any questions you have with your health care provider. Document Released: 10/06/2008 Document Revised: 10/21/2018 Document Reviewed: 10/21/2018 [employer] Patient Education 2020 [employer]. 10/28/2021 16:21:07 Flank Pain, Adult, Tkjf-xs-Aaak Flank Pain, Adult Flank pain is pain in your side. The flank is the area of your side between your upper belly (abdomen) and your back. The pain may occur over a short time (acute), or it may be long-term or come backoften (chronic). It may be mild or very bad. Pain in this area can be caused by many different things. Follow these instructions at home: Drink enough fluid to keep your pee (urine) clear or pale yellow. Rest as told by your doctor. Take rgzs-qsx-pohqucw and prescription medicines only as told by your doctor. Keep a journal to keep track of: ?What has caused your flank pain. ?What has made it feel better. Keep all follow-up visits as told by your doctor. This is important. Contact a doctor if: Medicine does not help your pain. You have new symptoms. Your pain gets worse. You have a fever. Your symptoms last longer than 2 3 days. You have trouble peeing. You are peeing more often than normal. Get help right away if: You have trouble breathing. You are short of breath. Your belly hurts, or it is swollen or red. You feel sick to your stomach (nauseous). You throw up (vomit). You feel like you will pass out, or you do pass out (faint). You have blood in your pee. Summary Flank pain is pain in your side. The flank is the area of your side between your upper belly (abdomen) and your back. Flank pain may occur over a short time (acute), or it may be long-term or come back often (chronic). It may be mild or very bad. Pain in this area can be caused by many different things. Contact your doctor if your symptoms get worse or they last longer than 2 3 days. This information is not intended to replace advice given to you by your health care provider. Make sure you discuss any questions you have with your health care provider. Document Released: 01/27/2009 Document Revised: 04/02/2018 Document Reviewed: 08/10/2017 [employer] Patient Education 2020 [employer]. 10/28/2021 16:21:07 Abdominal Pain, Adult, [id number] Abdominal Pain, Adult Many things can cause belly (abdominal) pain. Most times, belly pain is not dangerous. Many cases of belly pain can be watched and treated at home. Sometimes, though, belly pain is serious. Your doctor will try to find the cause of your belly pain. Follow these instructions at home: Medicines Take wdgn-ovn-amrebqp and prescription medicines only as told by your doctor. Do not take medicines that help you poop (laxatives) unless told by your doctor. General instructions Watch your belly pain for any changes. Drink enough fluid to keep your pee (urine) pale yellow. Keep all follow-up visits as told by your doctor. This is important. Contact a doctor if: Your belly pain changes or gets worse. You are not hungry, or you lose weight without trying. You are having trouble pooping (constipated) or have watery poop (diarrhea) for more than 2 3 days. You have pain when you pee or poop. Your belly pain wakes you up at night. Your pain gets worse with meals, after eating, or with certain foods. You are vomiting and cannot keep anything down. You have a fever. You have blood in your pee. Get help right away if: Your pain does not go away as soon as your doctor says it should. You cannot stop vomiting. Your pain is only in areas of your belly, such as the right side or the left lower part of the belly. You have bloody or black poop, or poop that looks like tar. You have very bad pain, cramping, or bloating in your belly. You have signs of not having enough fluid or water in your body (dehydration), such as: ?Dark pee, very little pee, or no pee. ?Cracked lips. ?Dry mouth. ?Sunken eyes. ?Sleepiness. ?Weakness. You have trouble breathing or chest pain. Summary Many cases of belly pain can be watched and treated at home. Watch your belly pain for any changes. Take srck-ffz-gcoztro and prescription medicines only as told by your doctor. Contact a doctor if your belly pain changes or gets worse. Get help right away if you have very bad pain, cramping, or bloating in your belly. This information is not intended to replace advice given to you by your health care provider. Make sure you discuss any questions you have with your health care provider. Document Released: 10/06/2008 Document Revised: 08/29/2019 Document Reviewed: 08/29/2019 [employer] Patient Education 2020 [employer]. Follow Up Care 10/28/2021 13:36:39 With:Srikanth Glover Address: [address] [place] [phone] Business (1) When:10/31/2021 16:11:51 Comments:Follow-up with Dr. Glover for your palpitations and chest pain. If symptoms worsen, do not improve,new symptoms arise please report back to emergency room for further evaluation. With:Samuel AYNES Address: [address] [phone]- Business (1) When:10/31/2021 16:11:20 Comments:Follow-up with your primary care provider in 3 to 5 days. Continue take Tylenol and Motrin for the next week to see if improves her symptoms. If symptoms worsen, do not improve, new symptoms arise please report back to emergency room for evaluation. [facility]ments Appointment Date:01/07/2022 02:40:00 PM Scheduled Provider:Carlos Alberto Bustillos MD Location:[facility] Appointment Type: Established [address] Future Appointments Appointment Date:01/07/2022 02:40:00 PM Scheduled Provider:Carlos Alberto Bustillos MD Location:[facility] Appointment Type:[facility] 30 Diagnostic Tests Pending * Urinalysis 12/23/[address] [facility] Future Appointments Appointment Date:07/31/2022 05:00:00 PM Scheduled Provider: Location:.PH[place]ICAL [place] Appointment Type:PT Eval () [facility] Future Appointments Appointment Date:09/24/2023 04:30:00 PM Scheduled Provider: Location:.MAMMOGRAM Appointment Type:MA Screen () Appointment Date:09/29/2023 04:30:00 PM Scheduled Provider: Location:.ULTRASOUND Appointment Type:US Abdominal/Pelvis (FT) Future Scheduled Tests Radiology* XR Abdomen 1 View 11/21/22 * US Renal 11/21/22 * US Pelvis Non-OB Complete 09/29/23 * US Transvaginal Non-OB 09/29/23 * MA Mamm Screen w/CAD if perf and 3D Dion 09/24/[address] [facility] Future Appointments Appointment Date:10/31/2023 09:30:00 AM Scheduled Provider: Location:.[facility]MOGRAM Appointment Type:MA Screen (FT) Future Scheduled Tests Radiology* XR Abdomen 1 View 11/21/22 * US Renal 11/21/22 * MA Mamm Screen w/CAD if perf and 3D Dion 10/31/[address] [facility] Future Appointments Appointment Date:10/31/2023 09:30:00 AM Scheduled Provider: Location:.M[facility]MOGRAM Appointment Type:MA Screen (FT) Diagnostic Tests Pending * Blood Culture Charcoal 10/10/23 * Blood Culture Charcoal 10/10/23 Future Scheduled Tests Radiology* XR Abdomen 1 View 11/21/22 * US Renal 11/21/22 * MA Mamm Screen w/CAD if perf and 3D Dion 10/31/[address] [facility] Future Appointments Appointment Date:11/03/2023 03:30:00 PM Scheduled Provider: Location:[facility] Appointment Type:Surgical PAT FT Appointment Date:11/13/2023 09:15:00 AM Scheduled Provider: Location:[facility] Appointment Type:Surgery FT Future Scheduled Tests Radiology* XR Abdomen 1 View 11/21/22 * US Renal 11/21/[address] [facility] Future Appointments Appointment Date:11/13/2023 09:15:00 AM Scheduled Provider: Location:[facility] Appointment Type:Surgery FT Future Scheduled Tests Radiology* XR Abdomen 1 View 11/21/22 * US Renal 11/21/[address] [facility] Diagnosis Facial abscess- Primary Cellulitis and abscess of face documented in [facility] N[facility]ative No data available for this section [facility] No data available for this section [facility] Additional Instructions Please return to emergency department for any new or worrisome symptoms including any numbness, weakness, tingling, worsening neck pain, vision changes. Follow-up with family physician within the next 3 to 5 days. Medically clear for fdc but likely need further suicide watch.[facility] Work Phone: Progress note No data available for this section 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 Advance Directives and Living Will Power of Occupational Health Nursing Director Advance Directive Response Recorded Date/ Time Advance Directives No October 25 11:29pm Reason for Referral Specialty Diagnoses / Procedures Referred By Elier martinez Referred To Contact Diagnoses Facial abscess Jeri Fernandez MD [address] [address] Referral ID Status Reason Start Date Expiration Date V isits Requested Visits Authorized [id number] Pending Review 1 1 Chief Complaint and Reason for Visit Chief Complaint Admit Date [facility] December 07, 2024 3:1 7pm med clearance December 12, 2024 7: 45pm Reason for Visit Admit Date MDD (major depressive disorder) December 072024 3:17pm Suicidal ideation December 07, 2024 3:1 7pm Chief Complaint Admit Date [facility] December 07, 2024 3:1 7pm Reason for Visit Admit Date Suicidal ideation December 07, 2024 3:1 7pm Additional Source Comments INFORMATION SOURCE (unrecogn ized section and content) DATE CREATED AUTHOR 10/22/2017 [facility] DATE CREATED AUTHOR AUTHOR'S ORGANIZ ATION 04/11/2018 [facility] DATE CREATED AUTHOR AUTHOR'S ORGANIZ ATION 02/16/2019 [facility] DATE CREATED AUTHOR AUTHOR'S ORGANIZ ATION 08/06/2022 [facility] DATE CREATED AUTHOR AUTHOR'S ORGANIZ ATION 12/11/2022 [facility] DATE CREATED AUTHOR AUTHOR'S ORGANIZ ATION 10/03/2023 Ibarra Moy [facility] DATE CREATED AUTHOR AUTHOR'S ORGANIZ ATION 10/11/2023 Ibarra Moy [facility] DATE CREATED AUTHOR AUTHOR'S ORGANIZ ATION 10/14/2023 Ibarra [place] [facility] DATE CREATED AUTHOR AUTHOR'S ORGANIZ ATION 10/17/2023 Ibarra Moy [facility] DATE CREATED AUTHOR AUTHOR'S ORGANIZ ATION 10/18/2023 Ibarra [place] [facility] DATE CREATED AUTHOR AUTHOR'S ORGANIZ ATION 11/05/2023 Ibarra [place] [facility] DATE CREATED AUTHOR AUTHOR'S ORGANIZ ATION 11/19/2023 Ibarra Moy [facility] DATE CREATED AUTHOR AUTHOR'S ORGANIZ ATION 12/27/2023 [facility] EPIC DATE CREATED AUTHOR AUTHOR'S ORGANIZ ATION 07/24/2024 [facility] DATE CREATED AUTHOR AUTHOR'S ORGANIZ ATION 02/06/2025 [facility] Care Team (unrecognized sect ion and content) Supervisor Assembly Stock Relationship Specialty Start Date End Date Aimee Adair MD [address] [place] [address] Referring Physician 12/08/23 Abisai Wang DO [address] [place] [id number] Family Medicine 12/08/23 Supervisor Assembly Stock Relationship Specialty Start Date End Date Aimee Adair MD [address] [place] [address] Referring Physician 12/08/23 Abisai Wang DO [address] [place] [phone] Family Medicine 12/08/23 Team Status: Active Member Role Status Dates PHYSICIAN NO FAMILY Primary Care Provider Active Team Status: Active Member Role Status Dates Ankit Parker DO Emergency Provider Active Start: December 07, 2024 PHYSICIAN NO FAMILY Primary Care Provider Active Start: December 07, 2024 Bahman Jones MD Admit Provider Active Start: December 07, 2024 Bahman Jones MD Attending Provider Active St art: December 07, 2024 Team Status: Active Member Role Status Dates Ankit Parker DO Emergency Provider Active Start: December 07, 2024 PHYSICIAN NO FAMILY Primary Care Provider Active Start: December 07, 2024 Bahman Jones MD Admit Provider Active Start: December 07, 2024 Bahman Jones MD Attending Provider Active St art: December 07, 2024 Bahman Jones MD Other Provider Active Start: December 07, 2024 Team Status: Inactive Member Role Status Dates PHYSICIAN NO FAMILY Primary Care Provider Active Start: December 12, 2024 End: December 13, 2024 Lorena Villarreal MD Emergency Provider Active Start: December 12, 2024 End: December 13, 2024 Reason for Visit (unrecogniz ed section and content) Reason Comments facial abscess 2 wk follow up Goals (unrecognized section and content) Goals may be documented in a n alternate section FOR RECORDS PERTAINING TO PATIENTS WHO ARE OR HAVE BEEN ENROLLED IN A CHEMICAL DEPENDENCY/SUBSTANCEABUSE PROGRAM, SOME INFORMATION MAY BE OMITTED. This clinical summary was aggregated from multiple sources. Caution should be exercised in using it in the provision of clinical care. This summary normalizes information from multiple sources, and as a consequence, information in this document may materially change the coding, format and clinical context of patient data. In addition, data may be omitted in some cases. CLINICAL DECISIONS SHOULD BE BASED ON THE PRIMARY CLINICAL RECORDS. [facility] [employer] [facility]. provides no warranty or guarantee of the accuracy or completeness of information in this document.
[2025-02-06 13:52] LABS: Hematocrit 40.2 % (36.0-48.0); Hemoglobin 13.8 g/dL (12.0-16.0); Immature Granulocytes Abs Auto 0.02 10^3/uL (0.00-0.03); Immature Granulocytes Pct Auto 0.2 % (0.0-0.5); Lymphocytes Absolute Auto 2.7 10^3/uL (1.2-3.8); Mean Corpuscular HGB Conc 34.3 g/dL (29.9-35.2); Mean Corpuscular Hemoglobin 30.1 pg (26.7-34.0); Mean Corpuscular Volume 87.8 fL (81.0-99.0); Platelet Count 237 10^3/uL (150-450); Red Blood Count 4.58 10^6/uL (4.20-5.40); White Blood Count 9.0 10^3/uL (4.0-11.0)
[2025-02-06 15:16] LABS: Alanine Aminotransferase 38 U/L (14-59); Albumin Globulin Ratio 1.2; Albumin Level 3.8 g/dL (3.4-5.0); Alkaline Phosphatase 53 U/L (46-116); Anion Gap 11.8; Aspartate Amino Transferase 21 U/L (15-37); Blood Urea Nitrogen 8.0 mg/dL (7.0-18.0); Calcium 8.9 mg/dL (8.5-10.1); Carbon Dioxide 27.9 mmol/L (21.0-32.0); Chloride 104 mmol/L (98-107); Estimated GFR (African America >60 (>=60 mL/min/1.73m^2); Estimated GFR (Non-African Ame >60 (>=60 mL/min/1.73m^2); Globulin 3.2 g/dL; Glucose 100 mg/dL (74-106); Potassium 3.7 mmol/L (3.5-5.1); Sodium 140 mmol/L (136-145); Total Protein 7.0 g/dL (6.4-8.2)
== END 2025-02-06 13:28 | disposition home or self-care (01) ==
PROVIDERS: PCP Nurse Practitioner Primary Care; Visit Provider Nurse Practitioner Primary Care
DX: F10.10 Alcohol abuse, uncomplicated (principal)
CPT/HCPCS: 36415; 80053; 85025; 86317; 87340; 87389; 87522